=== PATIENT | male | born 1930 | race Caucasian/White ===

== ENCOUNTER 2016-10-26 17:01 | Inpatient (IN) | payer MEDICARE, BC, OTHER ==
[2016-10-26] MEDS ORDERED: traMADol 50 MG TAB PO PRN (19:50)
[2016-10-26] MEDS ORDERED: ACETAMINOPHEN TAB 325 MG TAB PO PRN (19:50)
[2016-10-26] MEDS ORDERED: NALOXONE 0.4 MG/ML 1 ML VIAL IV PRN (19:50)
[2016-10-26] MEDS ORDERED: HYDROmorphone 1 MG/ML 1 ML SYRINGE IVP PRN (19:52)
[2016-10-26] MEDS ORDERED: HYDROcodone/APAP 5-325MG 1 EACH TAB PO PRN (19:52)
--- NOTE | 2016-10-26 20:28 | XR ---
EXAMINATION TYPE: XR chest 1V portable DATE OF EXAM: 10/26/2016 8:07 PM CLINICAL HISTORY: CHF per order. TECHNIQUE: Single AP portable frontal upright view of the chest is obtained. COMPARISON: None FINDINGS: Sternal wires and mediastinal clips from CABG procedure are identified. There is chronic pa renchymal change without suspicious focal air space opacity, pleural effusion, or pneumothorax seen. The cardiac silhouette size is within normal limits with atherosclerotic thoracic aorta. The osseo us structures are somewhat demineralized IMPRESSION: Chronic changes without acute pulmonary process.
[2016-10-26 20:36] LABS: Anisocytosis Slight; Basophils % (A) 0 %; CH 29.6; Eosinophils # (A) 0.1 k/uL (0-0.7); Eosinophils % (A) 1 %; HCT 38.7 % (39.0-53.0); HDW 2.61; HGB 11.9 gm/dL (13.0-17.5); Hypochromasia Slight; Luc # (Auto) 0.15; Luc % (Auto) 2; Lymphocytes # (A) 1.2 k/uL (1.0-4.8); Lymphocytes % (A) 13 %; MCH 29.6 pg (25.0-35.0); MCHC 30.9 g/dL (31.0-37.0); MCV 95.8 fL (80.0-100.0); Mean Platelet Volume 7.9; Monocytes # (A) 0.6 k/uL (0-1.0); Monocytes % (A) 7 %; Neutrophils # (A) 6.9 k/uL (1.3-7.7); Neutrophils % (A) 77 %; RBC 4.04 m/uL (4.30-5.90); RDW 16.1 % (11.5-15.5); WBC (Perox) 9.36
[2016-10-26 20:39] LABS: Prothrombin Time 10.3 sec (9.0-12.0)
[2016-10-26 20:53] LABS: Calcium 9.1 mg/dL (8.4-10.2); Magnesium 2.6 mg/dL (1.6-2.3); Phosphorous 4.4 mg/dL (2.5-4.5); Total Bilirubin 1.1 mg/dL (0.2-1.3); Total Protein 6.7 g/dL (6.3-8.2)
[2016-10-26 21:05] VITALS: BMI 24.0
[2016-10-26] MEDS ORDERED: NITROGLYCERIN SL TABS 0.4 MG TAB SUBLINGUAL PRN (21:13)
[2016-10-26] MEDS ORDERED: MAGNESIUM HYDROXIDE 2,400 MG/10 ML CUP PO PRN (21:30)
[2016-10-26] MEDS: SODIUM CHLORIDE 0.9% 1,000 ML IV SCH (22:51)
[2016-10-26] MEDS: AZTREONAM 1 GM in SODIUM CHLORIDE 0.9% 50 ML IVPB SCH (23:09)
[2016-10-27 02:27] LABS: Appearance,Urine Clear (Clear); Bacteria,Urine Moderate /hpf; Bilirubin,Urine Negative (Negative); Glucose,Urine (UA) Negative (Negative); Ketones,Urine Negative (Negative); Leukocyte Esterase,Urine Large (Negative); Mucus,Urine Rare /hpf; Nitrite,Urine Positive (Negative); Particle Count 6607; Protein,Urine Negative (Negative); RBC,Urine 3 /hpf (0-5); Specific Gravity,Urine 1.009 (1.001-1.035); Squamous Epithelial Cell,Urine <1 /hpf (0-4); UA Billing (MACRO vs. MICRO) MICRO; Urobilinogen,Urine <2.0 mg/dL (<2.0); WBC,Urine 37 /hpf (0-5)
[2016-10-27 02:47] LABS: Anisocytosis Slight; Basophils % (A) 0 %; CH 29.8; CHCM 31.3; Eosinophils # (A) 0.2 k/uL (0-0.7); Eosinophils % (A) 3 %; HCT 35.8 % (39.0-53.0); HDW 2.65; HGB 11.3 gm/dL (13.0-17.5); Hypochromasia Slight; Luc # (Auto) 0.14; Luc % (Auto) 2; Lymphocytes # (A) 1.3 k/uL (1.0-4.8); Lymphocytes % (A) 18 %; MCH 30.3 pg (25.0-35.0); MCHC 31.7 g/dL (31.0-37.0); MCV 95.5 fL (80.0-100.0); Mean Platelet Volume 8.2; Monocytes # (A) 0.5 k/uL (0-1.0); Monocytes % (A) 7 %; Neutrophils # (A) 4.9 k/uL (1.3-7.7); Neutrophils % (A) 70 %; RBC 3.74 m/uL (4.30-5.90); RDW 16.4 % (11.5-15.5); WBC 6.9 k/uL (3.8-10.6); WBC (Perox) 7.42
[2016-10-27 03:01] LABS: Potassium 4.7 mmol/L (3.5-5.1)
[2016-10-27] MEDS: PANTOPRAZOLE 40 MG TABLET PO SCH (06:02)
[2016-10-27] MEDS ORDERED: NON-FORMULARY DRUG (Ticagrelor [Brilinta] 60 MG) PO SCH (09:00)
--- NOTE | 2016-10-27 09:05 | HP ---
DATE OF ADMISSION: CHIEF COMPLAINT: Tiredness and weakness and renal failure. HISTORY OF PRESENT ILLNESS: This 86-year-old gentleman with a past medical history of CAD, hypertension, hyperlipidemia, BPH, multiple myeloma, kidney stones, onychomycosis, history of measles and mumps, CAD, CABG being followed by primary physician, Dr. Owen Sandoval and is living [facility] for the last year. The patient apparently had stroke on the right side. The patient also had prostate cancer evaluated by Urology in [place] and the patient was scheduled for surgery. The patient has a suprapubic catheter with recurrent UTIs. The patient was taken to [facility]. patient was found to be dehydrated. Patient was also having renal failure and the doctor in [place] discussed the case over the phone at length with me and the patient was subsequently transferred to [facility] as direct admission at this time. The potassium was found to be 5.8. There is no history of fever, rigors. No history of headache, loss of consciousness or seizures. BNP was 13, 278. The patient also has abrasion of the left arm. Otherwise, there is no history of any fevers, rigors. No history of headache, loss of consciousness or seizures. PAST MEDICAL HISTORY: History of CAD, history of CVA, TIA, GERD, GI bleed, recurrent urinary tract infections, history of suprapubic catheter, history of prostate cancer. Medications prior to admission include home medications: 1. Metoprolol 25 mg p.o. daily. 2. Nitroglycerin 0.4 sublingual p.r.n. 3. Imdur 30 mg p.o. q.a.m. 4. Neurontin 400 mg p.o. t.i.d. 5. [place] 10 mg p.r.n. 6. Lexapro 20 mg p.o. daily. 7. Ambien 5 mg p.o. q.h.s. 8. Lipitor to 40 mg p.o. daily. 9. Colace 100 mg p.o. daily. 10. Brilinta 90 mg p.o. b.i.d. 11. Lisinopril 10 mg p.o. daily. 12. Aspirin 81 mg p.o. daily. 13. Cetirizine 10 mg p.o. daily. 14. Lasix 20 mg q.48 hours. 15. KCl 10 mEq daily. 16. Flonase daily. 17. Milk of magnesia. 18. [place] 5 mg b.i.d. p.r.n. 19. Lexapro mg q.h.s. 20. Celexa 10 mg p.o. daily. 21. Cymbalta 30 mg p.o. q.h.s. 22. Protonix 40 mg daily. Allergies are CEPHALEXIN, LATEX, PENICILLIN and SULFA. FAMILY HISTORY: History of myocardial infarction. No history of stroke in the family. SOCIAL HISTORY: No history of smoking. No history of alcohol intake. REVIEW OF SYSTEMS: ENT: Diminishing hearing. Diminished vision. CARDIOVASCULAR: As mentioned earlier. RESPIRATORY: As mentioned earlier. GI: As mentioned earlier. : As mentioned earlier. NERVOUS SYSTEM: As mentioned earlier. ALLERGY/IMMUNOLOGY: No asthma. MUSCULOSKELETAL: As mentioned earlier. HEMATOLOGY/ONCOLOGY: No history of anemia. ENDOCRINE: No history of diabetes or hypothyroidism. CONSTITUTIONAL: As mentioned earlier. DERMATOLOGY: Negative. RHEUMATOLOGY: Negative. PSYCHIATRY: As mentioned earlier. PHYSICAL EXAMINATION: The patient is alert and oriented x3. Pulse is 80. Blood pressure is 123/75, respirations 20, temperature 96.5, pulse ox 93% on room air. HEENT: Conjunctivae normal. Oral mucosa pale and dry. NECK: No jugular venous distention. No carotid bruit. No lymph node enlargement. CARDIOVASCULAR: S1 and S2, muffled. No S3, no S4. RESPIRATORY: Breath sounds diminished at the bases. A few scattered rhonchi and no crackles. ABDOMEN: Soft, scaphoid, nontender. No mass palpable. A suprapubic catheter present. LEGS: No edema, no swelling. NERVOUS SYSTEM: Higher function as mentioned. Moves all 4 limbs. Mild diffuse weakness, right more than the left. SKIN: No ulcers, rashes or bleeding. LYMPHATICS: No lymphadenopathy of neck, axillae or groin. Lab investigations are pending at this time. Creatinine is 2.1 from . ASSESSMENT: 1. Renal failure, possible acute on chronic with secondary dehydration and prerenal acute tubular necrosis. 2. Hyperkalemia from elsewhere. 3. History of prostate cancer. 4. Suprapubic catheter. 5. History of recurrent urinary tract infections. 6. History of coronary artery disease, coronary artery bypass graft. 7. History of cerebrovascular accident, transient ischemic attack. 8. Gait dysfunction. 9. History of gastroesophageal reflux disease. 10. History of gastrointestinal bleed. 11. Hypertension. 12. History of myocardial infarction. 13. History of appendectomy. 14. History of cholecystectomy. 15. History of coronary artery disease, stent. 16. History of monoclonal gammopathy and multiple myeloma. 17. History of nephrolithiasis. 18. History of onychomycosis. 19. History of depression, anxiety, not otherwise specified. RECOMMENDATIONS AND DISCUSSION: This 86-year-old gentleman presented with multiple complex medical issues, will monitor the patient closely. Continue the medications. Continues symptomatic treatment. Treat the patient with IV fluids cautiously. Baseline labs and repeat labs. Otherwise adjust the medications. Overall prognosis is extremely guarded because of multiple complex medical issues. Baseline labs also will be obtained and medications reconciliation will be done. I would also recommend a cardiology and nephrology evaluation also. Prognosis guarded because of multiple complex medical issues. Infectious Disease evaluation will also be done. See orders for further details. Further recommendations to follow. A copy of dictation forwarded to Dr. Owen Sandoval who is the primary physician. HER[facility] HOSPITALNathalia
[2016-10-27] MEDS: ASPIRIN 81 MG CHEW PO SCH (09:54)
[2016-10-27] MEDS: FLUTICASONE 50MCG/SPRAY NASAL 16GM EA NOSTRIL SCH ×2 (09:55→21:37)
[2016-10-27] MEDS: ATORVASTATIN 40 MG TAB PO SCH (09:55)
[2016-10-27] MEDS: DOCUSATE 100 MG CAP PO SCH (09:55)
[2016-10-27] MEDS: GABAPENTIN 100 MG CAP PO SCH ×3 (09:55→21:37)
[2016-10-27] MEDS: CITALOPRAM HYDROBROMIDE 10 MG TAB PO SCH (09:55)
[2016-10-27] MEDS: METOPROLOL TARTRATE 25 MG TAB PO SCH (09:56)
[2016-10-27] MEDS: ISOSORBIDE MONONITRATE ER 30 MG TAB.ER.24H PO SCH (09:56)
--- NOTE | 2016-10-27 10:33 | CONS ---
DATE OF CONSULTATION: 10/27/2016. HISTORY OF PRESENT ILLNESS: Patient is an 86-year-old white male who has a history of hypertension, benign prostatic hypertrophy, hyperlipidemia, currently with indwelling Reid catheter for about 11 months now being followed by urologist out of town. He was admitted to the hospital with complaints of weakness and fatigue and he felt that his head was falling down. Patient's blood pressure was low with systolic around 97 at the time of admission. He did receive IV fluids and he states he started feeling significantly better with IV hydration. Renal function has been about the same with creatinine staying at about 1.6 mg/dL. Previous labs show serum creatinine of 0.84 on 12/29/2014. There is no history of use of nonsteroidal anti-inflammatory agents prior to admission and home medications did include CLARKE inhibitors, but I do not see any NSAIDs. PAST MEDICAL HISTORY: Coronary artery disease, CVA, TIA, GERD, GI bleed, urinary tract infections, history of prostatic carcinoma, history of suprapubic catheter. MEDICATIONS PRIOR TO ADMISSION: Metoprolol, nitroglycerin, lisinopril, Imdur, Neurontin, [place], Ambien, Lipitor, Colace, cetirizine, Lasix, potassium, Flonase, [place], Celexa, Cymbalta, Protonix. ALLERGIES INCLUDE CEPHALEXIN, LATEX, PENICILLIN, SULFA. SOCIAL HISTORY: Negative for smoking, drug abuse or alcohol abuse. REVIEW OF SYSTEMS: As per HPI. Other systems negative. On examination, the patient is currently comfortable, awake, alert, oriented x3 not in any acute distress. Blood pressure 132/62, heart rate 62 per minute. He is afebrile. Examination of the heart S1 and S2. Examination of the lungs: Bilateral breath sounds are heard. Abdomen is soft, nontender. Examination of the lower extremities shows no evidence of edema. TROUBLE TRACER exam is grossly intact and patient is moving all 4 extremities. Labs show sodium 139, potassium 4.7, chloride 105, BUN 35, serum creatinine 1.6. Hemoglobin 11.3 g/dL. UA shows no evidence of protein. No blood. There is large leukocyte esterase noted. WBCs are 37 with rare clumps. ASSESSMENT: 1. Acute kidney injury, most likely associated with hypoperfusion in the setting of use of CLARKE inhibitors. Renal function is about the same; however, patient is nonoliguric. His blood pressure was low around 97 systolic at the time of admission. The CLARKE inhibitors are on hold and we will repeat labs in the a.m. 2. Dyslipidemia. 3. History of prostatic carcinoma with suprapubic catheter being followed by Urology as outpatient. 4. Rule out chronic kidney disease. Previous creatinine was 0.84 in 2015. We do not have any labs from last year. PLAN: Continue off of CLARKE inhibitors for now. Continue IV fluids. Encourage increased oral intake. Repeat labs in a.m. and avoid any other nephrotoxic agents. Thank you for this consultation. Will continue to follow the patient with you during his hospitalization.
[2016-10-27] MEDS: AZTREONAM 1 GM in SODIUM CHLORIDE 0.9% 50 ML IVPB SCH ×2 (11:44→21:37)
[2016-10-27] MEDS: SODIUM CHLORIDE 0.9% 1,000 ML IV SCH ×2 (13:49→21:42)
[2016-10-27] MEDS ORDERED: TICAGRELOR 90 MG TAB PO SCH (14:00)
--- NOTE | 2016-10-27 22:27 | PN ---
DATE OF SERVICE: 10/27/2016 This 86 -year-old gentleman who was admitted with renal failure, possibly acute on chronic secondary to dehydration and prerenal acute tubular necrosis is being closely monitored. The patient is much more alert at this time. Dr. Hernandez is following the patient. Chest x-ray showed chronic changes without acute process. The creatinine was elevated 1.6, hemoglobin 11.9. PAST MEDICAL HISTORY: Reviewed. The patient also has possible history of urinary tract infection with features of urinary tract infection also. REVIEW OF SYSTEMS: CARDIOVASCULAR: No angina. RESPIRATORY: As mentioned earlier. GASTROINTESTINAL: As mentioned earlier. : No dysuria. Current Medications are reviewed and include: 1. Tylenol 650 q.6 p.r.n. 2. [place] 5 mg. 3. Aspirin 81 mg. 4. Lipitor 40 mg. 5. Aztreonam 1 gram IV b.i.d. 6. Celexa 10 mg daily. 7. Colace 100 milligrams b.i.d. 8. Flonase one spray b.i.d. 10. Dilaudid 0.5 mg q6h p.r.n. 11. Imdur 30 mg daily. 12. Milk of Magnesia. 13. Melatonin 3 mg q.h.s. 14. Lopressor 25 mg p.o. daily. 15. Narcan 0.2 q.2 p.r.n. 17. Protonix 40 mg daily. 18. Brilinta 90 mg p.o. daily. 19. Ultram 50 mg q6h p.r.n. PHYSICAL EXAMINATION: The patient is alert and oriented times three. Pulse 60, blood pressure 120/90. Respiratory rate 16. Temperature 96.8. Pulse ox 94% on room air. HEENT: Conjunctivae normal. NECK: No jugular venous distention. CARDIOVASCULAR: S1, S2 muffled. RESPIRATORY: Breath sounds diminished at the bases. A few scattered rhonchi and crackles. ABDOMEN: Soft, nontender. Legs: No edema. No swelling. Nervous system: No focal deficits. LABS: At this time show WBC 6.9, hemoglobin 11.3, creatinine 1.3. UA noted. Cultures are pending at this time. Currently the cultures are in progress. ASSESSMENT: 1. Acute renal failure, possibly acute on chronic renal failure, secondary to dehydration with prerenal acute tubular necrosis. Rule out urinary tract infection. 2. Hyperkalemia from elsewhere. 3. History of prostate cancer. 4. Supraorbital catheter. 5. History of recurrent urinary tract infections. 6. History of coronary artery disease, coronary artery bypass grafting. 7. History of cerebrovascular accident, transient ischemic attack. 8. Gait dysfunction. 9. History of gastroesophageal reflux disease. 10. History of gastrointestinal bleed. 11. Hypertension. 12. History of myocardial infarction. 13. History of appendectomy. 14. History of cholecystectomy. 15. History of coronary artery disease, stent. 16. History of monoclonal gammopathy with multiple myeloma. 17. History of nephrolithiasis. 18. History of onychomycosis. 19. History of depression, anxiety, not otherwise specified. 20. FULL CODE. RECOMMENDATION: In this 86-year-old gentleman who presented with multiple complex medical issues, we will monitor the patient closely. Continue the current medications. Continue symptomatic treatment. Continue with IV fluids. Nephrology input appreciated. Continue the rest of the medications and infectious disease is following the patient and recommended Aztreonam. Further recommendations to follow. MTDD
[2016-10-27] MEDS: MELATONIN 3 MG TABLET PO PRN (23:05)
[2016-10-28] MEDS: ATORVASTATIN 40 MG TAB PO SCH (08:43)
[2016-10-28] MEDS: METOPROLOL TARTRATE 25 MG TAB PO SCH (08:43)
[2016-10-28] MEDS: DOCUSATE 100 MG CAP PO SCH (08:43)
[2016-10-28] MEDS: GABAPENTIN 100 MG CAP PO SCH ×3 (08:43→23:14)
[2016-10-28] MEDS: CITALOPRAM HYDROBROMIDE 10 MG TAB PO SCH (08:43)
[2016-10-28] MEDS: FLUTICASONE 50MCG/SPRAY NASAL 16GM EA NOSTRIL SCH ×2 (08:43→23:14)
[2016-10-28] MEDS: ASPIRIN 81 MG CHEW PO SCH (08:43)
[2016-10-28] MEDS: PANTOPRAZOLE 40 MG TABLET PO SCH (08:43)
[2016-10-28] MEDS: ISOSORBIDE MONONITRATE ER 30 MG TAB.ER.24H PO SCH (08:43)
[2016-10-28] MEDS: AZTREONAM 1 GM in SODIUM CHLORIDE 0.9% 50 ML IVPB SCH ×2 (09:09→23:13)
--- NOTE | 2016-10-28 09:09 | CONS ---
DATE OF CONSULTATION: This is an 86-year-old elderly gentleman who was seen by me upon request by Dr. Hodges. This is an elderly gentleman who has most of his cardiac care at [facility]. He apparently was directly admitted after discussion by the [place] emergency room doctor, and Dr. Hodges. He has a history of CAD, previous bypass surgery and PCI, hypertension, hyperlipidemia, chronic kidney disease, multiple myeloma. He has been living in [facility]. He had a stroke with right-sided weakness, but recovered very nicely from this. He came into the hospital with he had a suprapubic catheter with recurrent UTIs. He was taken in a dehydrated state to [facility] and there was a question of sepsis and he was transferred here. After arrival, his BNP was elevated and I was asked to see him for heart failure. He also has a history of hyperkalemia. He did not have any fever with chills. He is resting comfortably without symptoms at this time. Denies any chest pain. He is a reasonably active person, even though he is living at [facility]. He has no chest pain or shortness of breath at the time of my evaluation. Medications prior to admission include: 1. Metoprolol. 2. Nitroglycerin p.r.n. 3. Imdur. 4. Neurontin. 5. Lexapro. 6. Ambien. 7. Lipitor. 8. Aspirin. 9. Lisinopril. 10. Brilinta 90 mg b.i.d. which I think can be stopped. 11. [place]. 12. Cymbalta. 13. Celexa. ALLERGIES: CEPHALEXIN, PENICILLIN, LATEX AND SULFA. SOCIAL HISTORY: He does not smoke. He quit smoking several years ago does not consume alcohol. On examination, blood pressure is 138/70, pulse rate 70 per minute, regular. HEENT: Unremarkable. Fundus was not examined by me. Neck is supple. There is no JVD. I do not hear a carotid bruit. Heart exam reveals S1, S2 with a short systolic murmur at the base. No gallops. Lungs reveal diminished air entry both bases. ABDOMEN: Soft. Lower extremities reveal diminished pulses. CENTRAL NERVOUS SYSTEM: Grossly no focal deficits. I cannot elicit any weakness on the right side. EKG revealed sinus mechanism, right bundle branch block pattern, old inferior [place]. No acute changes. IMPRESSION: 1. Elevated BNP possibly may have some mild congestive heart failure, but patient clinically appears to be very well compensated. He received some diuretics already. 2. Coronary artery disease without evidence of any active angina. 3. Hyperlipidemia. 4. Chronic kidney disease. 5. History of PCI on Brilinta, but this was performed a long time, PCI was performed more than a year ago. RECOMMENDATIONS: I would recommend that we perform an echocardiogram to assess LV function. I am also recommending that we continue is all his home medications, but there is no clear-cut indication to continue Brilinta, I will therefore stop this. He is already on a beta dana. We will obtain LV function assessment by echo and then based on this, I will make further recommendations. Patient's septic work-up is also in progress. Thank you very much for the consult.
[2016-10-28 09:24] LABS: Anisocytosis Slight; Basophils % (A) 0 %; CH 29.6; CHCM 31.4; Eosinophils # (A) 0.1 k/uL (0-0.7); Eosinophils % (A) 2 %; HDW 2.67; HGB 11.1 gm/dL (13.0-17.5); Hypochromasia Slight; Luc # (Auto) 0.12; Luc % (Auto) 2; Lymphocytes # (A) 0.7 k/uL (1.0-4.8); Lymphocytes % (A) 13 %; MCHC 31.6 g/dL (31.0-37.0); MCV 94.7 fL (80.0-100.0); Mean Platelet Volume 7.7; Monocytes # (A) 0.4 k/uL (0-1.0); Monocytes % (A) 7 %; Neutrophils # (A) 4.3 k/uL (1.3-7.7); Neutrophils % (A) 76 %; RBC 3.69 m/uL (4.30-5.90); RDW 16.1 % (11.5-15.5); WBC 5.6 k/uL (3.8-10.6); WBC (Perox) 6.19
[2016-10-28 09:28] LABS: Anion Gap 9 mmol/L; Blood Urea Nitrogen 27 mg/dL (9-20); Calcium 8.9 mg/dL (8.4-10.2); Carbon Dioxide 23 mmol/L (22-30); Chloride 109 mmol/L (98-107); Glucose 102 mg/dL (74-99); Non-African American GFR(MDRD) >60 (>60 ml/min/1.73 sqM); Potassium 4.4 mmol/L (3.5-5.1); Sodium 141 mmol/L (137-145)
--- NOTE | 2016-10-28 10:27 | CONS ---
DATE OF CONSULTATION: 10/27/2016 Reason for consultation is urinary tract infection. HISTORY OF PRESENT ILLNESS: The patient is an 86 -year-old male with a past medical history of BP hypertrophy. The patient did have a chronic suprapubic catheter placed for about 11 years now. The patient apparently also has been having problems with chronic urinary tract infection and is being treated by his urologist with gentamicin with irrigation of his bladder 3 times a day for a couple of weeks now. Patient was taken to the [facility] with chief complaints of not feeling well. No energy and kind of run down. Over there, the patient was noticed to have dehydration and evidence of urinary tract infection with patient did receive a dose of ciprofloxacin there and subsequently has been transferred to the [facility] for further evaluation. His care was discussed with the R.N. last night and the patient was started on Azactam while waiting for the culture to finalize. His suprapubic catheter has been changed by the RN last night without any difficulty. At the time of evaluation the patient has been afebrile. He knows he is in the hospital. Denies having any significant chest pain or shortness of breath, cough. No abdominal pain. No diarrhea. REVIEW OF SYSTEMS: CONSTITUTIONAL: Positive for weakness. No high-grade fever. EYES: No complaint. INTEGUMENTARY: No complaint. RESPIRATORY: No complaint. CARDIOVASCULAR: No complaint. GENITOURINARY: As per HPI. GASTROINTESTINAL: No complaint. MUSCULOSKELETAL: No complaint. INTEGUMENTARY: No complaint. NEUROLOGICAL: No complaint. PAST MEDICAL HISTORY: History of coronary artery disease, history of prostate cancer and urinary retention requiring suprapubic catheter placement, history of recurrent urinary tract infections, gastroesophageal reflux disease, CVA, TIA. PAST SURGICAL HISTORY: Suprapubic catheter placement. SOCIAL HISTORY: Denies smoking, drinking or drug use. FAMILY HISTORY: No pertinent findings noticed. ALLERGIES TO MULTIPLE MEDICATIONS INCLUDE PENICILLIN AND SULFA WITH RASH, CEPHALEXIN IS UNKNOWN. Medications include the patient is on: 1. Tylenol. 2. [place]. 3. Aspirin. 4. Lipitor. 5. Azactam 1 gram q.12. 6. Celexa. 7. Colace. 8. Neurontin. 9. Dilaudid. 10. Imdur. 11. Milk of Magnesia. 12. Lopressor. 13. Narcan. 14. Nitrostat. 15. Protonix. 16. Ultram. On examination, blood pressure is 142/70 with a pulse of 77, temperature 96. He is 95% on room air. GENERAL DESCRIPTION: Elderly male lying in bed in no distress. No tachypnea or accessory muscles of respiration use. HEENT EXAMINATION: Pallor. There is no scleral icterus. Oral mucosal membranes dry. NECK: Trachea central. There is no thyromegaly. LUNGS: Unlabored breathing. Clear to auscultation anteriorly. HEART: S1, S2. Regular rate and rhythm. ABDOMEN: Soft. No tenderness. No guarding or rigidity. EXTREMITIES: No edema of feet. SKIN EXAMINATION: No rash or mass palpable. NEUROLOGICAL: The patient is awake, alert times two. Mood and affect normal. LABS: Hemoglobin 11.2, white count 6.9 with a BUN of 35. Creatinine 1.30. Electrolytes have been normal. Liver enzymes normal. Urine is positive . Cultures currently pending. DIAGNOSTIC IMPRESSION AND PLAN: Patient with catheter associated urinary tract infection. Apparently the patient does have history of recurrent urinary tract infections and is being treated with regional intermodal truck driver course of intrabladder gentamicin by his urologist more likely an resistant pathogen in a patient who does have multiple antibiotic allergies that does limit the number of antibiotics that can be safe to use though his ALLERGY TO KEFLEX is questionable. PLAN: 1. Reid catheter has already been changed. Repeat urine culture has already been obtained. We will wait for them to finalize. 2. The patient to continue Azactam 1 gram q.12 in view of his antibiotic allergy. 3. Will follow up on the clinical condition and cultures to further adjust the medication if needed. Thank you for this consultation. We will follow this patient along with you. GENARO
--- NOTE | 2016-10-28 12:11 | ECHOF ---
Referral Reason:CAD,CHF MEASUREMENTS -------- HEIGHT: 172.7 cm WEIGHT: 75.7 kg BP: 102/59 RVIDd: 3.1 cm (< 3.3) IVSd: 1.3 cm (0.6 - 1.1) LVIDd: 4.9 cm (3.9 - 5.3) LVPWd: 1.4 cm (0.6 - 1.1) IVSs: 2.1 cm LVIDs: 3.8 cm LVPWs: 1.5 cm LA Diam: 3.0 cm (2.7 - 3.8) LAESV Index (A-L): 35.18 ml/m Ao Diam: 3.7 cm (2.0 - 3.7) AV Cusp: 2.5 cm (1.5 - 2.6) LA Diam: 2.7 cm (2.7 - 3.8) MV EXCURSION: 14.382 mm (> 18.000) MV EF SLOPE: 33 mm/s (70 - 150) EPSS: 1.0 cm MV E Tariq: 0.49 m/s MV DecT: 331 ms MV A Tariq: 0.84 m/s MV E/A Ratio: 0.58 AR PHT: 607 ms FINDINGS -------- Sinus rhythm. This was a technically adequate study. There is moderate concentric left ventricular hypertrophy. Overall left ventricular systolic function is moderately impaired with, an EF between 35 - 40 %. Basal posterior LV wall motion is hypokinetic. Basal inferior LV wall motion is hypokinetic. The right ventricle is normal in size. LA is moderately dilated 34-39 ml/m2 The right atrium is normal in size. Aortic valve is trileaflet and is mildly thickened. There is mild aortic regurgitation. The mitral valve leaflets are mildly thickened. Mild mitral annular calcification present. Mild mitral regurgitation is present. Trace tricuspid regurgitation present. Trace/mild (physiologic) pulmonic regurgitation. The aortic root size is normal. IVC Not well visulized. There is no pericardial effusion. CONCLUSIONS -------- 1. Sinus rhythm. 2. Aortic valve is trileaflet and is mildly thickened. 3. There is mild aortic regurgitation. 4. The mitral valve leaflets are mildly thickened. 5. Mild mitral annular calcification present. 6. Mild mitral regurgitation is present. 7. Trace tricuspid regurgitation present. 8. Trace/mild (physiologic) pulmonic regurgitation. 9. The aortic root size is normal. 10. IVC Not well visulized. 11. There is no pericardial effusion. 12. This was a technically adequate study. 13. There is moderate concentric left ventricular hypertrophy. 14. Overall left ventricular systolic function is moderately impaired with, an EF between 35 - 40 %. 15. Basal posterior LV wall motion is hypokinetic. 16. Basal inferior LV wall motion is hypokinetic. 17. The right ventricle is normal in size. 18. LA is moderately dilated 34-39 ml/m2 19. The right atrium is normal in size. VACUUM TECHNICIAN: Davy Monique RDCS
--- NOTE | 2016-10-28 14:46 | PN ---
Patient is seen for follow-up for acute kidney injury. His renal function has improved significantly with creatinine down to 1.13 from 1.6 on initial admission. Patient's blood pressure was on the lower side. He had been on CLARKE inhibitors prior to admission. He responded very well to IV fluids and his creatinine is now down to 1.13. The CLARKE inhibitors are on board. The patient wants to go home today. On examination, blood pressure is 167/90, I am not sure if this is accurate as previously pressure was 102/69, heart rate 91 per minute. He is afebrile. Examination of the heart S1 and S2. Examination of the lungs: Bilateral breath sounds are heard. ABDOMEN: Soft, nontender. Examination of lower extremities shows no evidence of edema and FIELD SERVICES DIRECTOR exam is grossly intact. Moving all 4 extremities. Labs show sodium 141, potassium 4, chloride 109, BUN 27, serum creatinine 1.13. Hemoglobin 11.1 g/dL. ASSESSMENT: 1. Acute kidney injury associated with hypotension, hypoperfusion in the setting of use of CLARKE inhibitors, currently significantly improved. 2. History of prostatic carcinoma with suprapubic catheter and followed by urology as outpatient. 3. Hypertension. Blood pressure currently on the lower side. PLAN: The patient is stable for discharge. We need to monitor his blood pressure and if he remains elevated, he could start very low-dose CLARKE inhibitors with close monitoring of renal function and this can be done as outpatient.
--- NOTE | 2016-10-28 20:11 | PN ---
DATE OF SERVICE: 10/28/2016 REASON FOR FOLLOWUP: Catheter-associated urinary tract infection. INTERVAL HISTORY: The patient is afebrile. He has been breathing comfortably. The patient denies having any chest pain or shortness of breath or cough. No abdominal pain or any diarrhea. On examination, blood pressure is 121/70 with a pulse of 85, temperature 97. He is 92% on room air. General description is an elderly male lying in bed in no distress. RESPIRATORY SYSTEM: Unlabored breathing. Clear to auscultation anteriorly. HEART: S1, S2. Regular rate and rhythm. ABDOMEN: Soft. No tenderness. LABS: Hemoglobin is 11.1, white count 5.6 with a BUN of 27, creatinine 1.13. Urine showing Gram-negative. DIAGNOSTIC IMPRESSION AND PLAN: Patient with Gram-negative catheter-associated urinary tract infection. Patient at this time will continue on azactam because of his multiple antibiotic allergies. We are waiting for the urine culture to finalize to determine his discharge antibiotics, as the patient has been treated with multiple antibiotics in the outpatient setting. Continue supportive care.
[2016-10-28] MEDS: SODIUM CHLORIDE 0.9% 1,000 ML IV SCH (23:14)
[2016-10-28] MEDS: MELATONIN 3 MG TABLET PO PRN (23:25)
[2016-10-29 00:49] VITALS: RESP 20
[2016-10-29] MEDS: AZTREONAM 1 GM in SODIUM CHLORIDE 0.9% 50 ML IVPB SCH (08:25)
[2016-10-29] MEDS: CITALOPRAM HYDROBROMIDE 10 MG TAB PO SCH (08:26)
[2016-10-29] MEDS: GABAPENTIN 100 MG CAP PO SCH (08:26)
[2016-10-29] MEDS: ASPIRIN 81 MG CHEW PO SCH (08:26)
[2016-10-29] MEDS: PANTOPRAZOLE 40 MG TABLET PO SCH (08:26)
[2016-10-29] MEDS: DOCUSATE 100 MG CAP PO SCH ×2 (08:26→08:27)
[2016-10-29] MEDS: ATORVASTATIN 40 MG TAB PO SCH (08:26)
[2016-10-29] MEDS: FLUTICASONE 50MCG/SPRAY NASAL 16GM EA NOSTRIL SCH ×2 (08:26→08:27)
[2016-10-29] MEDS: METOPROLOL TARTRATE 25 MG TAB PO SCH (08:26)
[2016-10-29] MEDS: ISOSORBIDE MONONITRATE ER 30 MG TAB.ER.24H PO SCH (08:26)
[2016-10-29 08:47] LABS: Basophils % (A) 0 %; CH 29.5; CHCM 30.4; Eosinophils # (A) 0.1 k/uL (0-0.7); Eosinophils % (A) 2 %; HCT 40.7 % (39.0-53.0); HGB 12.4 gm/dL (13.0-17.5); Hypochromasia Moderate; Luc # (Auto) 0.14; Luc % (Auto) 3; Lymphocytes # (A) 1.2 k/uL (1.0-4.8); Lymphocytes % (A) 21 %; MCH 29.6 pg (25.0-35.0); MCHC 30.4 g/dL (31.0-37.0); MCV 97.6 fL (80.0-100.0); Macrocytosis Slight; Mean Platelet Volume 7.6; Monocytes # (A) 0.5 k/uL (0-1.0); Monocytes % (A) 8 %; Neutrophils # (A) 3.7 k/uL (1.3-7.7); Neutrophils % (A) 66 %; RBC 4.17 m/uL (4.30-5.90); RDW 15.9 % (11.5-15.5); WBC 5.6 k/uL (3.8-10.6); WBC (Perox) 5.82
[2016-10-29 09:07] LABS: Anion Gap 14 mmol/L; Blood Urea Nitrogen 24 mg/dL (9-20); Calcium 9.1 mg/dL (8.4-10.2); Carbon Dioxide 18 mmol/L (22-30); Chloride 109 mmol/L (98-107); Glucose 85 mg/dL (74-99); Non-African American GFR(MDRD) >60 (>60 ml/min/1.73 sqM); Potassium 4.4 mmol/L (3.5-5.1); Sodium 141 mmol/L (137-145)
--- NOTE | 2016-10-29 14:15 | P.DS ---
Providers Date of admission: 10/26/16 19:17 Expected date of discharge: 10/29/16 Attending physician: Maritza Bravo. Consults: 10/26/16 19:51 Consult Physician Routine Consulting Provider: Oni Goodman Consult Reason/Comments: cad Do you want consulting provider notified?: Yes Consult Physician Routine Consulting Provider: Fany Rhoades Consult Reason/Comments: uti Do you want consulting provider notified?: Yes Consult Physician Routine Consulting Provider: Deisi Hernandez Consult Reason/Comments: arf Do you want consulting provider notified?: Yes Primary care physician: Maritza Sandoval Hospital Course: Final diagnoses: 1 acute renal failure, possibly acute on chronic renal failure secondary to dehydration with prerenal acute tubular necrosis 2. Acute UTI, E. coli, catheter associated-suprapubic catheter, in a patient with history of prostate carcinoma with recurrent UTIs. 3. CAD, history of IA, CABG,stent 4. Gait dysfunction 5. Gastroesophageal reflux disease 6. Essential hypertension, 7. Monoclonal gammopathy with multiple myeloma 8. History of nephrolithiasis 9. Moderate concentric left ventricular hypertrophy, EF 35-40%. Plan: This is an 86-year-old male resident of [facility] with a suprapubic catheter admitted with acute UTI with E. coli, acute renal failure, dehydration and multiple other medical issues. Evaluated by both nephrology and infectious disease. Creatinine on admission 1.6 in a patient who had been on Chuy inhibitors prior to admission .Maintained on IV fluids and IV antibiotics. CHUY inhibitor is currently remain on hold, may be reintroduced outpatient at a lower dose, if patient becomes hypertensive as per nephrology. Significant clinical improvement. Cleared for discharge by both nephrology and infectious disease.Patient is being discharged to [facility] in a stable condition with guarded prognosis. Microbiology 10/27/16 02:02 Urine,Suprapubic Urine Culture - Final Escherichia coli 10/26/16 20:12 Blood Blood Culture - Preliminary No Growth after 48 hours Plan - Discharge Summary New Discharge Prescriptions: Cefuroxime Axetil [Ceftin] 500 mg PO BID #10 tab Discharge Medication List Metoprolol Tartrate [Lopressor] 25 mg PO DAILY 12/01/13 [History] Nitroglycerin Sl Tabs [Nitrostat] 0.4 mg SUBLINGUAL Q5M PRN 07/13/14 [History] Furosemide [Lasix] 20 mg PO Q48H 08/03/14 [History] Potassium Chloride [Klor-Con 10] 10 meq PO DAILY 08/03/14 [History] Aspirin [Adult Low Dose Aspirin EC] 81 mg PO DAILY 10/26/16 [History] Atorvastatin [Lipitor] 40 mg PO DAILY 10/26/16 [History] Cetirizine HCl 10 mg PO DAILY 10/26/16 [History] Citalopram Hydrobromide [CeleXA] 10 mg PO DAILY 10/26/16 [History] DULoxetine HCL [Cymbalta] 30 mg PO HS 10/26/16 [History] Docusate [Colace] 100 mg PO DAILY 10/26/16 [History] Escitalopram [Lexapro] 20 mg PO DAILY 10/26/16 [History] Fluticasone Nasal Marion [Flonase Nasal Marion] 1 spray EA NOSTRIL BID 10/26/16 [ History] Gabapentin [Neurontin] 400 mg PO TID 10/26/16 [History] Isosorbide Mononitrate ER [Imdur] 30 mg PO DAILY 10/26/16 [History] Magnesium Hydroxide [Milk of Magnesia] 30 ml PO HS PRN 10/26/16 [History] Melatonin 2 mg PO HS 10/26/16 [History] Pantoprazole Sodium [Protonix] 40 mg PO DAILY 10/26/16 [History] Pantoprazole [Protonix] 40 mg PO DAILY 10/26/16 [History] Ticagrelor [Brilinta] 60 mg PO BID 10/26/16 [History] Cefuroxime Axetil [Ceftin] 500 mg PO BID #10 tab 10/29/16 [Rx] Patient Instructions/Handouts: Acute Kidney Injury (DC), Urinary Tract Infection in Men (DC) Activity/Diet/Wound Care/Special Instructions: Shirley on discharge. Cardiac diet. Fall precautions. CBC, BMP in 3 days
[2016-10-29] MEDS ORDERED: SODIUM BICARBONATE TAB 650 MG TAB PO SCH (14:30)
[2016-10-29 14:49] VITALS: BP 121/63; PULSE 64; TEMP 98.4
[2016-10-29] MEDS: SODIUM CHLORIDE 0.9% 1,000 ML IV SCH (15:24)
--- NOTE | 2016-10-29 15:39 | P.PN ---
Subjective Patient is seen in follow-up for acute kidney injury. Renal function continues to improve with creatinine down to 1.03. Currently resting in bed. He is nonoliguric. He is eager to go home. Appetite is good. No vomiting or diarrhea. No active complaints at this time. Vital signs are stable. General: The patient appeared well nourished and normally developed. HEENT: Head exam is unremarkable. Neck is without jugular venous distension. LUNGS: Lungs are clear to auscultation and percussion. Breath sounds decreased. HEART: Rate and Rhythm are regular. First and second heart sounds normal. No murmurs, rubs or gallops. ABDOMEN: Abdominal exam reveals normal bowel sounds. Non-tender and non- distended. No evidence of peritonitis. EXTREMITITES: No clubbing, cyanosis, or edema. Objective - Vital Signs Vital signs: Vital Signs Temp 98.4 F 10/29/16 14:49 Pulse 64 10/29/16 14:49 Resp 20 10/29/16 14:49 BP 121/63 10/29/16 14:49 Pulse Ox 96 10/29/16 14:49 Intake & Output 10/28/16 10/29/16 10/29/16 18:59 06:59 18:59 Intake Total 480 400 Output Total 1500 2700 700 Balance -1020 -2300 -700 Intake: Oral 480 400 Output: Urine 1500 2700 700 Uretheral (Reid) 900 900 Other: Voiding Method Indwelling Catheter Indwelling Catheter # Bowel Movements 1 2 - Labs CBC & Chem 7: 10/29/16 08:18 10/29/16 08:18 Labs: Abnormal Lab Results - Last 24 Hours (Table) 10/29/16 10/29/16 Range/Units 08:18 08:18 RBC 4.17 L (4.30-5.90) m/uL Hgb 12.4 L (13.0-17.5) gm/dL MCHC 30.4 L (31.0-37.0) g/dL RDW 15.9 H (11.5-15.5) % Plt Count 136 L (150-450) k/uL Chloride 109 H (98-107) mmol/L Carbon Dioxide 18 L (22-30) mmol/L BUN 24 H (9-20) mg/dL Microbiology - Last 24 Hours (Table) 10/27/16 02:02 Urine Culture - Final Urine,Suprapubic Escherichia coli 10/26/16 20:12 Blood Culture - Preliminary Blood No Growth after 48 hours Assessment and Plan Plan: Assessment: #1. Nonoliguric acute kidney injury mostly prerenal in nature secondary to hypotension and CLARKE inhibitor use. Resolved. Creatinine now to 1.03 today. #2. History of hypertension. Controlled. Off CLARKE inhibitor at this time. #3. History of prostate carcinoma with suprapubic catheter in place. #4. Metabolic acidosis secondary to IV fluids and acute kidney injury. #5. Urinary tract infection with urine culture positive for E. coli. Plan: Hep-Lock IV fluids. Start oral sodium bicarbonate 650 mg once daily. Stable to be discharged home from nephrology standpoint and to follow-up as an outpatient in the next 2 weeks.
--- NOTE | 2016-10-29 16:39 | PN ---
DATE OF SERVICE: 10/29/2016 REASON FOR FOLLOWUP: Catheter-associated urinary tract infection. INTERVAL HISTORY: The patient is afebrile, has been breathing comfortably. Denies significant chest pain or shortness of breath or cough. No abdominal pain. No nausea, vomiting or any diarrhea. On examination, blood pressure is 124/69 with a pulse of 65, temperature 97. He is 93% on room air. General description is an elderly male lying in bed in no distress. RESPIRATORY SYSTEM: Unlabored breathing. Clear to auscultation anteriorly. HEART: S1, S2. Regular rate and rhythm. ABDOMEN: Soft. No tenderness. LABS: Hemoglobin is 12.4, white count 5.6 with a BUN of 24, creatinine 1.03. Urine culture finalized with an E. coli that is sensitive to Rocephin, Azactam. DIAGNOSTIC IMPRESSION AND PLAN: Patient with an Escherichia coli catheter-associate urinary tract infection. Patient's Reid catheter has been changed. There is a question of Keflex allergy; however, on discussion with [facility], where he has most of his treatment, he has received multiple doses of Rocephin and even one before being transferred here. Patient was given a dose of Rocephin, which he tolerated without any problem. Patient will be given Ceftin 500 mg twice a day for another 5 days to finish a course of therapy. Continue supportive care.
--- NOTE | 2016-10-29 19:28 | P.PN ---
Subjective Date of service 10/28/2016 Progress note being dictated for Dr. Bravo. Interval history: This is an 86-year-old male resident of [facility] with a suprapubic catheter admitted with acute UTI with gram-negative, acute renal failure, dehydration and multiple other medical issues. Maintained on IV fluids and IV antibiotics. CLARKE inhibitor currently remains on hold, renal function improving. Afebrile. No abdominal pain. HGB 11.1. Denies nausea vomiting. Denies chest pain, palpitations or increasing shortness of breath. Objective - Vital Signs Vital signs: Vital Signs Temp 97.0 F L 10/28/16 15:00 Pulse 65 10/28/16 15:00 Resp 18 10/28/16 15:44 BP 121/70 10/28/16 15:00 Pulse Ox 92 L 10/28/16 15:00 Intake & Output 10/28/16 10/28/16 10/29/16 06:59 18:59 06:59 Intake Total 400 480 Output Total 900 1500 Balance -500 -1020 Intake: Oral 400 480 Output: Urine 900 1500 Uretheral (Reid) 900 Other: Voiding Method Indwelling Catheter Indwelling Catheter # Voids 1 # Bowel Movements 1 - Exam PHYSICAL EXAM: VITAL SIGNS: As above GENERAL: [Sitting up in bed, no acute distress] HEENT: [Pupils equal conjunctiva normal.] NECK: [Supple, no JVD] RESPIRATORY EFFORT:[Normal] LUNGS: [Lungs diminished, no wheezes crackles or rhonchi] CARDIOVASCULAR[regular S1 and S2, no edema ] GI: [Abdomen soft, nontender, positive bowel sounds.] PSYCH: [Alert and oriented -2, mood and affect normal.] SKIN: NEURO: No focal deficits, moves all 4 extremities, strength and sensation grossly intact - Labs CBC & Chem 7: 10/29/16 08:18 10/29/16 08:18 Labs: Abnormal Lab Results - Last 24 Hours (Table) 10/28/16 10/28/16 Range/Units 08:59 08:59 RBC 3.69 L (4.30-5.90) m/uL Hgb 11.1 L (13.0-17.5) gm/dL Hct 35.0 L (39.0-53.0) % RDW 16.1 H (11.5-15.5) % Plt Count 131 L (150-450) k/uL Lymphocytes # 0.7 L (1.0-4.8) k/uL Chloride 109 H (98-107) mmol/L BUN 27 H (9-20) mg/dL Glucose 102 H (74-99) mg/dL Microbiology - Last 24 Hours (Table) 10/26/16 20:12 Blood Culture - Preliminary Blood No Growth after 48 hours 10/27/16 02:02 Urine Culture - Preliminary Urine,Suprapubic Gram Neg Bacilli Assessment and Plan Plan: 1 acute renal failure, possibly acute on chronic renal failure secondary to dehydration with prerenal acute tubular necrosis 2. Acute UTI, gm. negative , catheter associated-suprapubic catheter, in a patient with history of prostate carcinoma with recurrent UTIs. 3. CAD, history of GA, CABG,stent 4. Gait dysfunction 5. Gastroesophageal reflux disease 6. Essential hypertension, 7. Monoclonal gammopathy with multiple myeloma 8. History of nephrolithiasis 9. Moderate concentric left ventricular hypertrophy, EF 35-40%. Plan: Continue on current medication regime ,monitoring and symptomatic treatment. Awaiting final culture results with antibiotics as per ID. Discharge planning in progress for ECF rehab tomorrow. Further recommendations to follow. The impression and plan of care has been dictated as directed. : I performed a H&P examination of this patient and discussed the same with the dictator. I agree with the dictator's note. Any additional findings/opinions/ etc. will be noted.
== END 2016-10-29 16:21 | DRG 698 ==
LOC: 6SEL 19:17 → 4MS4W 10-27 18:22
PROVIDERS: ADMIT Hospitalist; ATTEND Hospitalist
DX: T83.518A Infection and inflammatory reaction due to other urinary catheter, initial encounter (principal); N17.0 Acute kidney failure with tubular necrosis; E87.2 Acidosis; I13.0 Hypertensive heart and chronic kidney disease with heart failure and stage 1 through stage 4 chronic kidney disease, or unspecified chronic kidney disease; C90.00 Multiple myeloma not having achieved remission; I95.9 Hypotension, unspecified; N39.0 Urinary tract infection, site not specified; I50.9 Heart failure, unspecified; B96.20 Unspecified Escherichia coli [E. coli] as the cause of diseases classified elsewhere; E87.5 Hyperkalemia; E86.0 Dehydration; C61 Malignant neoplasm of prostate; E78.5 Hyperlipidemia, unspecified; D47.2 Monoclonal gammopathy; I25.10 Atherosclerotic heart disease of native coronary artery without angina pectoris; I25.2 Old myocardial infarction; K21.9 Gastro-esophageal reflux disease without esophagitis; N40.0 Benign prostatic hyperplasia without lower urinary tract symptoms; S40.812A Abrasion of left upper arm, initial encounter; N18.9 Chronic kidney disease, unspecified; F32.9 Major depressive disorder, single episode, unspecified; F41.9 Anxiety disorder, unspecified; I45.10 Unspecified right bundle-branch block; R01.1 Cardiac murmur, unspecified; R26.9 Unspecified abnormalities of gait and mobility; Z79.82 Long term (current) use of aspirin; Z79.899 Other long term (current) drug therapy; Z87.440 Personal history of urinary (tract) infections; Z87.891 Personal history of nicotine dependence; Z95.5 Presence of coronary angioplasty implant and graft; Z95.1 Presence of aortocoronary bypass graft; Z88.0 Allergy status to penicillin; Z88.1 Allergy status to other antibiotic agents; Z91.040 Latex allergy status; Z88.2 Allergy status to sulfonamides; Z82.49 Family history of ischemic heart disease and other diseases of the circulatory system; Y84.6 Urinary catheterization as the cause of abnormal reaction of the patient, or of later complication, without mention of misadventure at the time of the procedure
CPT/HCPCS: 71010; 80048; 80053; 81001; 82150; 83605; 83690; 83735; 84100; 84484; 85025; 85610; 87040; 87077; 87086; 87186; 93306

== ENCOUNTER 2017-11-08 14:28 | Inpatient (IN) | payer MEDICARE, BC, OTHER ==
[2017-11-08 21:34] VITALS: BMI 34.7
[2017-11-08] MEDS ORDERED: FUROSEMIDE 10 MG/ML 4 ML VIAL IV STA (22:45)
[2017-11-08] MEDS ORDERED: ACETAMINOPHEN TAB 325 MG TAB PO PRN (22:48)
[2017-11-08] MEDS ORDERED: ONDANSETRON 4 MG/2 ML VIAL IVP PRN (22:49)
[2017-11-09] MEDS ORDERED: HYDROcodone/APAP 5-325MG 1 EACH TAB PO PRN (01:26)
[2017-11-09] MEDS ORDERED: NITROGLYCERIN SL TABS 0.4 MG TAB SUBLINGUAL PRN (01:26)
[2017-11-09] MEDS ORDERED: MAGNESIUM HYDROXIDE 2,400 MG/10 ML CUP PO PRN (01:26)
[2017-11-09 02:15] LABS: Appearance,Urine Clear (Clear); Bacteria,Urine Rare /hpf; Bilirubin,Urine Negative (Negative); Blood,Urine Trace (Negative); Color,Urine Light Yellow; Glucose,Urine (UA) Negative (Negative); Hyaline Casts,Urine 9 /lpf (0-2); Ketones,Urine Negative (Negative); Leukocyte Esterase,Urine Small (Negative); Mucus,Urine Rare /hpf; Nitrite,Urine Positive (Negative); Protein,Urine Negative (Negative); RBC,Urine 5 /hpf (0-5); Specific Gravity,Urine 1.007 (1.001-1.035); Squamous Epithelial Cell,Urine <1 /hpf (0-4); Urobilinogen,Urine <2.0 mg/dL (<2.0); WBC,Urine 7 /hpf (0-5)
[2017-11-09 05:54] LABS: Albumin 3.4 g/dL (3.5-5.0); Calcium 10.2 mg/dL (8.4-10.2); Potassium 4.5 mmol/L (3.5-5.1); Total Bilirubin 0.7 mg/dL (0.2-1.3)
--- NOTE | 2017-11-09 06:01 | HP ---
HISTORY AND PHYSICAL DATE OF SERVICE: 11/08/2017 CHIEF COMPLAINT: Weakness. HISTORY OF PRESENT ILLNESS: This 87-year-old gentleman with a past medical history of multiple medical problems including atrial fibrillation, history of CHF, COPD, CVA, GERD, GI bleed, myocardial infarction was recently admitted with acute renal failure with secondary dehydration. Patient also had E. coli UTI. The patient improved significantly with treatment and subsequently patient was transferred to [facility] in [place] under the care of Dr. Owen Sandoval. Currently the patient was confused and was taken to the [facility] for further evaluation and treatment. Patient had multiple medical issues including UTI and also had drop in hemoglobin from 11 to 8.2, and the troponin was also found to be elevated and the patient was transferred to [facility]. Just before transfer, the patient was complaining of a brief anterior chest pain and the EKG showed right bundle branch block and the patient was transferred to telemetry as direct admission at this time. Currently patient is confused, to give history. Otherwise, there is no history of any fever, rigors or chills. No history of headache, loss of consciousness, seizures or shortness of breath at this time. PAST MEDICAL HISTORY: History of atrial fibrillation, history of chest pain, CHF, COPD, CVA, TIA, GI bleed, myocardial infarction, prostate disorder. MEDICATIONS: Home medications are: 1. Brilinta 60 mg p.o. b.i.d. 2. Sodium bicarb 650 mg p.o. daily. 3. Senokot-S 1 tab p.o. daily. 4. Klor-Con 10 mEq p.o. daily. 5. Protonix 40 mg p.o. daily. 6. Nitrostat 0.4 sublingual p.r.n. 7. Lopressor 50 mg p.o. b.i.d. 8. Melatonin 2 mg p.o. q.h.s. 9. Milk of magnesia 2.4 grams p.o. daily p.r.n. 10.Imdur ER 60 mg p.o. daily. 11.Tony 5 mg q.6 p.r.n. 12.Gentamicin 1 application daily. 13.Neurontin 600 mg p.o. b.i.d. 14.Lasix 20 mg q.48 hours. 15.Cymbalta 60 mg p.o. daily. 16.Cetirizine 10 mg p.o. daily. 17.Bisacodyl 10 mg daily p.r.n. 18.Lipitor 40 mg p.o. daily. 19.Aspirin 81 mg p.o. daily. ALLERGIES: CEPHALEXIN, LATEX, PENICILLIN, SULFA. FAMILY HISTORY: History of myocardial infarction, heavy smoker. SOCIAL HISTORY: No history of smoking. No history of alcohol intake. REVIEW OF SYSTEMS: ENT: No diminished hearing or diminished vision. CARDIOVASCULAR SYSTEM: As mentioned earlier. RESPIRATORY SYSTEM: As mentioned earlier. GI: No nausea or vomiting. : As mentioned earlier. NERVOUS SYSTEM: No numbness. Generalized weakness. ALLERGY/IMMUNOLOGY: No history of asthma. MUSCULOSKELETAL: As mentioned earlier. HEMATOLOGY/ONCOLOGY: No history of anemia. ENDOCRINE: No history of diabetes or hypothyroidism. CONSTITUTIONAL: As mentioned earlier. DERMATOLOGY: Negative. RHEUMATOLOGY: Negative. PSYCHIATRY: As mentioned earlier. PHYSICAL EXAMINATION: The patient is alert and oriented x3. Pulse is 70, blood pressure 121/58, respirations 17, temperature 97.5, pulse ox 97% on 2 L. HEENT: Conjunctivae normal. Oral mucosa moist. Neck is no jugular venous distention. No carotid bruit. No lymph node enlargement. CARDIOVASCULAR: S1, S2 muffled. No S3 or S4. RESPIRATORY: Breath sounds diminished at the bases. Scattered rhonchi and basal crackles. ABDOMEN: Soft, nontender. No mass palpable. LEGS: No edema, no swelling. NERVOUS SYSTEM: Higher functions as mentioned earlier. Moves all 4 limbs. No focal motor deficits. Diffusely weak. LYMPHATICS: No lymphadenopathy of the neck, axillae or groin. SKIN: No ulcer, rash or bleeding. LABS: Troponin 0.403. Other labs are noted. BUN is ntd, the creatinine is 2. Initial troponin 0.09. EKG noted. The 2D echo with Doppler done recently showed ejection fraction 35% to 40%. ASSESSMENT: 1. Change in mental status possibly urinary tract infection with sepsis indwelling Reid catheter. 2. Chest pain with acute non ST-segment elevation myocardial infarction with troponin 0.403. 3. Acute on chronic kidney disease. 4. History of congestive heart failure with chronic systolic dysfunction ejection fraction 35% to 40%. 5. History atrial fibrillation. 6. History of chronic obstructive pulmonary disease. 7. Cerebrovascular accident, transient ischemic attack. 8. Gastroesophageal reflux disease. 9. History of gastrointestinal bleed. 10.Hypertension. 11.History of myocardial infarction. 12.History of prostate disorder. 13.History of indwelling Reid catheter. 14.History of multiple myeloma. 15.History of appendectomy. 16.Coronary artery disease, coronary artery bypass grafting, stent. 17.History of prostate cancer. 18.NO CODE, NO CPR, NO VENT. RECOMMENDATION AND DISCUSSION: In this 87-year-old gentleman who presented with multiple complex medical issues , will monitor the patient closely. Continue the current medication, continue symptomatic treatment. Will initiate broad-spectrum IV antibiotics and Lasix also will be given cautiously: Recommend Cardiology and Nephrology evaluations. The prognosis is guarded because of multiple complex medical issues. Further recommendations to follow. Repeat labs also will be ordered. Dr. Mendez also will be consulted for multiple myeloma. A copy of dictation forwarded to Dr. Owen Sandoval who is the primary physician. MMZELDA / KARYN: [id number] / MTDNathalia
[2017-11-09 07:06] LABS: Total Protein 11.7 g/dL (6.3-8.2)
[2017-11-09] MEDS ORDERED: BISACODYL 5 MG TABLET.DR PO PRN (09:00)
[2017-11-09] MEDS ORDERED: NON-FORMULARY DRUG (Ticagrelor [Brilinta] 60 MG) PO SCH (09:00)
[2017-11-09] MEDS ORDERED: GENTAMICIN 0.1% CREAM 15 GM TUBE TOPICAL SCH (09:00)
[2017-11-09] MEDS ORDERED: LEVOFLOXACIN 750MG-D5W PMX 750 MG in DEXTROSE/WATER 1 150ML.BAG IVPB SCH (09:00)
[2017-11-09] MEDS ORDERED: FUROSEMIDE 10 MG/ML 4 ML VIAL IV SCH (09:00)
[2017-11-09] MEDS ORDERED: TICAGRELOR 90 MG TAB PO SCH ×2 (09:00)
[2017-11-09] MEDS: GABAPENTIN 300 MG CAP PO SCH ×2 (09:09→21:19)
[2017-11-09] MEDS: ATORVASTATIN 40 MG TAB PO SCH (09:09)
[2017-11-09] MEDS: DULoxetine HCL 60 MG CAPSULE.DR PO SCH (09:09)
[2017-11-09] MEDS: ISOSORBIDE MONONITRATE ER 60 MG TAB.ER.24H PO SCH ×2 (09:09→21:19)
[2017-11-09] MEDS: LORATADINE 10 MG TAB PO SCH (09:09)
[2017-11-09] MEDS: POTASSIUM CHLORIDE ER 10 MEQ TAB.ER.PRT PO SCH (09:10)
[2017-11-09] MEDS: ASPIRIN 81 MG PO SCH (09:10)
[2017-11-09] MEDS: SODIUM BICARBONATE TAB 650 MG TAB PO SCH (09:10)
[2017-11-09] MEDS: SENNOSIDES-DOCUSATE SODIUM 1 EACH TAB PO SCH (09:11)
[2017-11-09] MEDS: METOPROLOL TARTRATE 50 MG TAB PO SCH ×2 (09:11→21:19)
[2017-11-09] MEDS: PANTOPRAZOLE 40 MG TABLET PO SCH (09:15)
--- NOTE | 2017-11-09 11:08 | ECHOF ---
Referral Reason:chest pain; cardiac hx MEASUREMENTS -------- HEIGHT: 172.7 cm WEIGHT: 103.4 kg BP: 123/68 RVIDd: 2.6 cm (< 3.3) IVSd: 1.3 cm (0.6 - 1.1) LVIDd: 6.1 cm (3.9 - 5.3) LVPWd: 1.1 cm (0.6 - 1.1) IVSs: 2.0 cm LVIDs: 4.7 cm LVPWs: 1.2 cm LA Diam: 2.9 cm (2.7 - 3.8) LAESV Index (A-L): 20.71 ml/m Ao Diam: 3.9 cm (2.0 - 3.7) AV Cusp: 2.4 cm (1.5 - 2.6) MV EXCURSION: 27.766 mm (> 18.000) MV EF SLOPE: 112 mm/s (70 - 150) EPSS: 0.8 cm MV E Tariq: 0.57 m/s MV DecT: 128 ms MV A Tariq: 0.92 m/s MV E/A Ratio: 0.62 AR PHT: 483 ms RAP: 5.00 mmHg RVSP: 22.84 mmHg FINDINGS -------- Sinus rhythm. This was a technically good study. The left ventricle is mildly dilated. There is mild concentric left ventricular hypertrophy. Over all left ventricular systolic function is mild-moderately impaired with, an EF between 40 - 45 %. 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 The right ventricle is normal in size. Normal LA size by volume 22+/-6 ml/m2. The right atrium is normal in size. There is mild aortic valve sclerosis. There is [id number] aortic regurgitation. The mitral valve leaflets are mildly thickened. The tricuspid valve appears structurally normal. There is no pulmonic regurgitation present. The aortic root is dilated measuring 3.9cm. IVC Not well visulized. There is no pericardial effusion. CONCLUSIONS -------- 1. Sinus rhythm. 2. This was a technically good study. 3. The left ventricle is mildly dilated. 4. There is mild concentric left ventricular hypertrophy. 5. Overall left ventricular systolic function is mild-moderately impaired with, an EF between 40 - 45 %. 6. 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 Basal inferior LV wall motion is hypokinetic. 8. The right ventricle is normal in size. 9. Normal LA size by volume 22+/-6 ml/m2. 10. The right atrium is normal in size. 11. There is mild aortic valve sclerosis. 12. There is [id number] aortic regurgitation. 13. The mitral valve leaflets are mildly thickened. 14. The tricuspid valve appears structurally normal. 15. There is no pulmonic regurgitation present. 16. The aortic root is dilated measuring 3.9cm. 17. IVC Not well visulized. 18. There is no pericardial effusion. [employer] CHIEF CLERK: Jaclyn Rainey RDCS
--- NOTE | 2017-11-09 11:12 | P.NPCON ---
History of Present Illness - Reason for Consult acute renal failure - History of Present Illness Reason for consultation: Acute kidney injury History of present illness: Patient is a 87-year-old male seen in renal consultation for acute kidney injury. His baseline creatinine is near 1 and elevated at 2.0 today. Patient presented to [facility] with altered mental status. He was noted to have elevated troponin levels as well as anemia and was subsequently transferred to [facility] for further care. He does have a suprapubic catheter which she states is changed every 3 weeks. He denies any melena or hematochezia. No proteinuria noted on urinalysis. His sodium level is elevated at 147. He's currently receiving Lasix 40 mg IV twice daily. He does a history of systolic CHF with ejection fraction of 35-40%. Oral intake is fair. No vomiting or diarrhea. Denies chest pain or shortness of breath. No edema. I don't see NSAIDs and his home medications. No history of diabetes. He is nonoliguric. He has a suprapubic catheter in place. He does have history of UTIs in the past. Cultures are currently pending. He is maintained on antibiotics per infectious disease recommendations. Vital signs are stable. General: The patient appeared well nourished and normally developed. HEENT: Head exam is unremarkable. Neck is without jugular venous distension. LUNGS: Lungs are clear to auscultation and percussion. Breath sounds decreased. HEART: Rate and Rhythm are regular. First and second heart sounds normal. No murmurs, rubs or gallops. ABDOMEN: Abdominal exam reveals normal bowel sounds. Non-tender and non- distended. No evidence of peritonitis. EXTREMITITES: No clubbing, cyanosis, or edema. Past Medical History Past Medical History: Atrial Fibrillation, Coronary Artery Disease (CAD), Cancer , Chest Pain / Angina, Heart Failure, COPD, CVA/TIA, GERD/Reflux, GI Bleed, Hypertension, Myocardial Infarction (ID), Prostate Disorder Additional Past Medical History / Comment(s): INDWELLING CATHERER SINCE 11/25/13 - PROSTATE IS ENLARGED & STATES WILL BE NEEDING SURGERY PT GETS CHEST PAIN OFF & ON AFTER EXERTION MULTIPLE MYELOMA DX 7 HX TIA'S, ANEMIA, HX OF BLEEDING ULCER X2 Last Myocardial Infarction Date:: 2014 History of Any Multi-Drug Resistant Organisms: None Reported Past Surgical History: Appendectomy, Cholecystectomy, Coronary Bypass/CABG, Heart Catheterization With Stent, Hernia Repair, Joint Replacement Additional Past Surgical History / Comment(s): REPAIR OF ULCER X2. CABG X3 TOM[facility]S. HIP REPLACEMENTS 2005 & 2008WIFE STATES PT HAS 6 OR 7 STENTS. HERNIA - ING X 2. TOM[facility]S CATARACT. Past Anesthesia/Blood Transfusion Reactions: No Reported Reaction Date of Last Stent Placement:: UNKNOWN Past Psychological History: No Psychological Hx Reported Smoking Status: Never smoker Past Alcohol Use History: None Reported Past Drug Use History: None Reported - Past Family History Father Family Medical History: Myocardial Infarction (ID) Additional Family Medical History / Comment(s): HEAVY SMOKER Mother Family Medical History: No Reported History Medications and Allergies Home Medications Medication Instructions Recorded Confirmed Type Metoprolol Tartrate [Lopressor] 50 mg PO BID 12/01/13 11/08/17 History Nitroglycerin Sl Tabs [Nitrostat] 0.4 mg SUBLINGUAL Q5M PRN 07/13/14 11/08/17 History Furosemide [Lasix] 20 mg PO Q48H 08/03/14 11/08/17 History Potassium Chloride [Klor-Con 10] 10 meq PO DAILY 08/03/14 11/08/17 History Aspirin [Adult Low Dose Aspirin EC] 81 mg PO DAILY 10/26/16 11/08/17 History Atorvastatin [Lipitor] 40 mg PO DAILY 10/26/16 11/08/17 History Cetirizine HCl 10 mg PO DAILY 10/26/16 11/08/17 History Isosorbide Mononitrate ER [Imdur] 60 mg PO BID 10/26/16 11/08/17 History Magnesium Hydroxide [Milk of 2,400 mg PO DAILY PRN 10/26/16 11/08/17 History Magnesia] Melatonin 2 mg PO HS 10/26/16 11/08/17 History Pantoprazole Sodium [Protonix] 40 mg PO DAILY 10/26/16 11/08/17 History Ticagrelor [Brilinta] 60 mg PO BID 10/26/16 11/08/17 History Sodium Bicarbonate Tab 650 mg PO DAILY tab 10/29/16 11/08/17 Rx Bisacodyl 10 mg PO DAILY PRN 11/08/17 11/08/17 History DULoxetine HCL [Cymbalta] 60 mg PO DAILY 11/08/17 11/08/17 History Gabapentin [Neurontin] 600 mg PO BID 11/08/17 11/08/17 History Gentamicin Sulfate [Gentamicin 1 applic TOPICAL DAILY 11/08/17 11/08/17 History Sulfate 0.1%] HYDROcodone/APAP 5-325MG [[place] 1 tab PO Q6HR PRN 11/08/17 11/08/17 History 5-325] Sennosides-Docusate Sodium 1 tab PO DAILY 11/08/17 11/08/17 History [Senokot-S] Allergies Allergy/AdvReac Type Severity Reaction Status Date / Time cephalexin Allergy Unknown Verified 11/08/17 21:56 Latex, Natural Rubber Allergy Unknown Verified 12/28/14 08:46 Penicillins Allergy Rash/Hives Verified 11/08/17 21:56 & blisters Sulfa (Sulfonamide Allergy Unknown Verified 11/08/17 21:56 Antibiotics) Physical Exam Vitals: Vital Signs Temp Pulse Resp BP Pulse Ox 11/09/17 03:10 97.7 F 82 17 123/68 92 L 11/09/17 00:00 97.5 F L 70 17 121/58 97 Intake and Output 11/08/17 11/09/17 11/09/17 22:59 06:59 14:59 Intake Total 0 Output Total 1100 Balance -1100 0 Intake: Oral 0 Output: Urine 1100 Other: Voiding Method Indwelling Catheter # Voids 1 Weight 103.5 kg 103.5 kg Results - Lab Results Most recent lab results Calcium 10.2 mg/dL (8.4-10.2) 11/09/17 05:15 11/09/17 05:15 Assessment and Plan Plan: Assessment: #1. Nonoliguric acute kidney injury mostly prerenal secondary to diuresis. Creatinine up to 2.0 today. Baseline creatinine is near 1. No proteinuria noted on urinalysis. #2. Systolic CHF with ejection fraction of 35-40%. Compensated. #3. Pyuria. Urine culture pending. #4. History of multiple UTIs. Patient has a suprapubic catheter. #5. Hypernatremia secondary to lack of oral water intake and further free water losses from diuretics. #6. Metabolic acidosis secondary to acute kidney injury maintained on oral sodium bicarbonate. Plan: Hold diuretics. Start D5W to be run at 50 mL an hour. Check hemoglobin and iron studies. Follow-up cultures. Antibiotics per infectious disease recommendations. Encourage oral intake. Repeat electrolytes in the morning. Thank you for the consultation. I will continue to follow the patient with you during his hospital stay.
[2017-11-09 11:52] LABS: Anisocytosis Slight; HCT 28.8 % (39.0-53.0); HGB 8.9 gm/dL (13.0-17.5); Hypochromasia Slight; MCH 30.7 pg (25.0-35.0); MCHC 30.9 g/dL (31.0-37.0); MCV 99.3 fL (80.0-100.0); Macrocytosis Slight; Mean Platelet Volume 9.7; Platelet Count 100 k/uL (150-450); RDW 18.7 % (11.5-15.5); WBC 2.9 k/uL (3.8-10.6)
[2017-11-09] MEDS: DEXTROSE 5% IN WATER 1,000 ML IV SCH (12:11)
--- NOTE | 2017-11-09 12:26 | P.CONS ---
History of Present Illness - Reason for Consult Consult date: 11/09/17 Bone lesions, Hx of Multiple myeloma Requesting physician: Cait Zimmerman - Chief Complaint weakness, AMS - History of Present Illness Pt is seen for suspicious bone lesions found on routine imaging for anterior chest pain. [place] he went after a recent hospitalization for ARF, dehydration and UTI. At the [facility] he became progressively weaker and more confused which led to [place] ER visit. On evaluation there was work up to suggest myocardial infarction and he was transferred here. Pt is a poor historian and his past myeloma history is taken from office chart. Pt follows with Dr. Cutler annually and was last seen in December of 2016. Mr. Casanova was diagnosed in December 2013-that is the earliest documentation available and the earliest bone marrow report-with IgA multiple myeloma, marrow path revealed 70% bone marrow involvement with plasma cells at that time, skeletal survey showed lytic skull lesions. Pt was treated initially treated with Velcade and low dose dexamethasone. Treatment follow up bone marrow showed 13-15% plasma cells. He was placed on maintenance Revlimid mid 2014. He did well until October of 2015 when pt wanted a "break" from treatment. Since that time he has had no treatment for myeloma, annual follow up with Dr. Cutler. Last myeloma numbers in December 2016 were M-spike 0.4, Ig levels were all WNDL, BUN/Cr 46/1.39, [place] 46. Review of Systems ROS unobtainable: due to mental status Past Medical History Past Medical History: Atrial Fibrillation, Coronary Artery Disease (CAD), Cancer , Chest Pain / Angina, Heart Failure, COPD, CVA/TIA, GERD/Reflux, GI Bleed, Hypertension, Myocardial Infarction ([place]), Prostate Disorder Additional Past Medical History / Comment(s): INDWELLING CATHERER SINCE 11/25/13 - PROSTATE IS ENLARGED & STATES WILL BE NEEDING SURGERY PT GETS CHEST PAIN OFF & ON AFTER EXERTION MULTIPLE MYELOMA DX 7--14 HX TIA'S, ANEMIA, HX OF BLEEDING ULCER X2 Last Myocardial Infarction Date:: 2014 History of Any Multi-Drug Resistant Organisms: None Reported Past Surgical History: Appendectomy, Cholecystectomy, Coronary Bypass/CABG, Heart Catheterization With Stent, Hernia Repair, Joint Replacement Additional Past Surgical History / Comment(s): REPAIR OF ULCER X2. CABG X3 [facility]OM[facility]. HIP REPLACEMENTS 2005 & 2008WIFE STATES PT HAS 6 OR 7 STENTS. HERNIA - ING X 2. TOM[facility]S CATARACT. Past Anesthesia/Blood Transfusion Reactions: No Reported Reaction Date of Last Stent Placement:: UNKNOWN Past Psychological History: No Psychological Hx Reported Smoking Status: Never smoker Past Alcohol Use History: None Reported Past Drug Use History: None Reported - Past Family History Father Family Medical History: Myocardial Infarction ([place]) Additional Family Medical History / Comment(s): HEAVY SMOKER Mother Family Medical History: No Reported History Medications and Allergies Home Medications Medication Instructions Recorded Confirmed Type Metoprolol Tartrate [Lopressor] 50 mg PO BID 12/01/13 11/08/17 History Nitroglycerin Sl Tabs [Nitrostat] 0.4 mg SUBLINGUAL Q5M PRN 07/13/14 11/08/17 History Furosemide [Lasix] 20 mg PO Q48H 08/03/14 11/08/17 History Potassium Chloride [Klor-Con 10] 10 meq PO DAILY 08/03/14 11/08/17 History Aspirin [Adult Low Dose Aspirin EC] 81 mg PO DAILY 10/26/16 11/08/17 History Atorvastatin [Lipitor] 40 mg PO DAILY 10/26/16 11/08/17 History Cetirizine HCl 10 mg PO DAILY 10/26/16 11/08/17 History Isosorbide Mononitrate ER [Imdur] 60 mg PO BID 10/26/16 11/08/17 History Magnesium Hydroxide [Milk of 2,400 mg PO DAILY PRN 10/26/16 11/08/17 History Magnesia] Melatonin 2 mg PO HS 10/26/16 11/08/17 History Pantoprazole Sodium [Protonix] 40 mg PO DAILY 10/26/16 11/08/17 History Ticagrelor [Brilinta] 60 mg PO BID 10/26/16 11/08/17 History Sodium Bicarbonate Tab 650 mg PO DAILY tab 10/29/16 11/08/17 Rx Bisacodyl 10 mg PO DAILY PRN 11/08/17 11/08/17 History DULoxetine HCL [Cymbalta] 60 mg PO DAILY 11/08/17 11/08/17 History Gabapentin [Neurontin] 600 mg PO BID 11/08/17 11/08/17 History Gentamicin Sulfate [Gentamicin 1 applic TOPICAL DAILY 11/08/17 11/08/17 History Sulfate 0.1%] HYDROcodone/APAP 5-325MG [[place] 1 tab PO Q6HR PRN 11/08/17 11/08/17 History 5-325] Sennosides-Docusate Sodium 1 tab PO DAILY 11/08/17 11/08/17 History [Senokot-S] Allergies Allergy/AdvReac Type Severity Reaction Status Date / Time cephalexin Allergy Unknown Verified 11/08/17 21:56 Latex, Natural Rubber Allergy Unknown Verified 12/28/14 08:46 Penicillins Allergy Rash/Hives Verified 11/08/17 21:56 & blisters Sulfa (Sulfonamide Allergy Unknown Verified 11/08/17 21:56 Antibiotics) Physical Exam Vitals: Vital Signs Temp Pulse Resp BP Pulse Ox 11/09/17 03:10 97.7 F 82 17 123/68 92 L 11/09/17 00:00 97.5 F L 70 17 121/58 97 Intake and Output 11/08/17 11/09/17 11/09/17 22:59 06:59 14:59 Intake Total 0 Output Total 1100 Balance -1100 0 Intake: Oral 0 Output: Urine 1100 Other: Voiding Method Indwelling Catheter # Voids 1 Weight 103.5 kg 103.5 kg - Constitutional General appearance: cooperative, no acute distress, obese - EENT Eyes: anicteric sclerae ENT: normal oropharynx - Neck Neck: no lymphadenopathy - Respiratory Respiratory: bilateral: CTA - Cardiovascular Heart sounds: normal: S1, S2 - Gastrointestinal General gastrointestinal: no absent bowel sounds, no decreased bowel sounds, no distended, no hepatomegaly, no hyperactive bowel sounds, normal bowel sounds, no organomegaly, no rigid, no scaphoid, soft, no splenomegaly, no tenderness, no umbilical hernia, no ventral hernia - Neurologic hypo-reflexive lower extremity DTR - Musculoskeletal Musculoskeletal: generalized weakness Results CBC & Chem 7: 11/09/17 05:15 11/09/17 05:15 Labs: Abnormal Lab Results - Last 24 Hours (Table) 11/08/17 11/09/17 11/09/17 Range/Units 23:27 02:05 05:15 Sodium (137-145) mmol/L BUN (9-20) mg/dL Creatinine (0.66-1.25) mg/dL ALT (21-72) U/L Troponin I 0.403 H* 0.456 H* (0.000-0.034) ng/mL Total Protein (6.3-8.2) g/dL Albumin (3.5-5.0) g/dL Urine Blood Trace H (Negative) Ur Leukocyte Esterase Small H (Negative) Urine WBC 7 H (0-5) /hpf Urine Bacteria Rare H (None) /hpf Hyaline Casts 9 H (0-2) /lpf Urine Mucus Rare H (None) /hpf 11/09/17 Range/Units 05:15 Sodium 147 H (137-145) mmol/L BUN 34 H (9-20) mg/dL Creatinine 2.00 H (0.66-1.25) mg/dL ALT 6 L (21-72) U/L Troponin I (0.000-0.034) ng/mL Total Protein 11.7 H (6.3-8.2) g/dL Albumin 3.4 L (3.5-5.0) g/dL Urine Blood (Negative) Ur Leukocyte Esterase (Negative) Urine WBC (0-5) /hpf Urine Bacteria (None) /hpf Hyaline Casts (0-2) /lpf Urine Mucus (None) /hpf Assessment and Plan (1) Multiple myeloma in remission Narrative/Plan: Multiple labs have been ordered to compare to work up from last year to evaluate status of myeloma that was previously in remission. No evidence to suggest that pt current situation is specifically a result of myeloma at this time, work up pending. Renal function overall stable from last years labs. Current Visit: Yes Status: Chronic Priority: Medium Code(s): C90.01 - MULTIPLE MYELOMA IN REMISSION SNOMED Code(s): 89261235 (2) Pancytopenia Narrative/Plan: CBC was normal last year. Myeloma work up pending. No acute intervention at this time. Current Visit: Yes Status: Acute Priority: High Code(s): D61.818 - OTHER PANCYTOPENIA SNOMED Code(s): 680526665 Plan: Defer management of current condition to Attending and Consulting Physicians Doctor attests: I performed a history and physical examination of this patient, discussed with dictator. I agree with dictators note, documented as a scribe.
[2017-11-09 12:35] LABS: Band Neutrophils % 1 %; Eosinophils # (M) 0.06 k/uL (0-0.7); Lymphocytes # (M) 0.61 k/uL (1.0-4.8); Monocytes # (M) 0.38 k/uL (0-1.0); Neutrophils % (M) 63 %; Nucleated Red Blood Cells 0 /100 WBC (0-0); Total Cells Counted 100
[2017-11-09 12:37] LABS: Rouleaux Present
--- NOTE | 2017-11-09 13:02 | P.CRDCN ---
History of Present Illness Consult date: 11/09/17 Requesting physician: Mariam Buenrostro Reason for Consult (text): Abnormal troponin Chief complaint: Mental status changes History of present illness: This is a pleasant 87-year-old gentleman, he is not able to give a detailed history, most of this was obtained from the medical record, there is no family at bedside. Patient has known history of coronary artery disease and prior bypass surgery, also history of PCI, hypertension, hyperlipidemia, chronic kidney disease, multiple myeloma, prior CVA, GERD, COPD, prior GI bleed , prior E. coli and a UTI. Patient was brought to the hospital because of confusion, was found to have multiple medical issues including UTI, and was also noted to have a drop in hemoglobin. Troponins were obtained which came back to be abnormal, for this reason a cardiology consultation was requested. Patient is confused as to why he is here, he denies any chest discomfort, breathing overall is stable. EKG was performed which shows a normal sinus rhythm with right bundle branch block pattern and nonspecific ST-T wave changes. An echocardiogram with Doppler study was performed which revealed an ejection fraction of 40-45%. Basal posterior and inferior wall hypokinesia noted. Mild to moderate aortic regurg noted. Patient did have an echocardiogram with Doppler study performed earlier this month which showed an ejection fraction of 35-40%. Blood pressure 122/60, heart rate in the 80s. White blood cell count 2.9, hemoglobin 8.9, platelet count 100. Patient's hemoglobin on this most recent admission, one week ago, was 12.4. Sodium 147, potassium 4.5, BUN 34, creatinine 2.0. Creatinine 1 week ago 1.0. Troponins 0.40, 0.45, 0.56. At the time of my examination this morning, patient is pleasantly confused, denies any discomfort in the chest, denies any difficulty in breathing, no dizziness or lightheadedness. Past Medical History Past Medical History: Atrial Fibrillation, Coronary Artery Disease (CAD), Cancer , Chest Pain / Angina, Heart Failure, COPD, CVA/TIA, GERD/Reflux, GI Bleed, Hypertension, Myocardial Infarction ([place]), Prostate Disorder Additional Past Medical History / Comment(s): INDWELLING CATHERER SINCE 11/25/13 - PROSTATE IS ENLARGED & STATES WILL BE NEEDING SURGERY PT GETS CHEST PAIN OFF & ON AFTER EXERTION MULTIPLE MYELOMA DX 7-1-14 HX TIA'S, ANEMIA, HX OF BLEEDING ULCER X2 Last Myocardial Infarction Date:: 2014 History of Any Multi-Drug Resistant Organisms: None Reported Past Surgical History: Appendectomy, Cholecystectomy, Coronary Bypass/CABG, Heart Catheterization With Stent, Hernia Repair, Joint Replacement Additional Past Surgical History / Comment(s): REPAIR OF ULCER X2. CABG X3 [facility]. HIP REPLACEMENTS 2005 & 2008WIFE STATES PT HAS 6 OR 7 STENTS. HERNIA - ING X 2. [facility] CATARACT. Past Anesthesia/Blood Transfusion Reactions: No Reported Reaction Date of Last Stent Placement:: UNKNOWN Past Psychological History: No Psychological Hx Reported Smoking Status: Never smoker Past Alcohol Use History: None Reported Past Drug Use History: None Reported - Past Family History Father Family Medical History: Myocardial Infarction ([place]) Additional Family Medical History / Comment(s): HEAVY SMOKER Mother Family Medical History: No Reported History Medications and Allergies Home Medications Medication Instructions Recorded Confirmed Type Metoprolol Tartrate [Lopressor] 50 mg PO BID 12/01/13 11/08/17 History Nitroglycerin Sl Tabs [Nitrostat] 0.4 mg SUBLINGUAL Q5M PRN 07/13/14 11/08/17 History Furosemide [Lasix] 20 mg PO Q48H 08/03/14 11/08/17 History Potassium Chloride [Klor-Con 10] 10 meq PO DAILY 08/03/14 11/08/17 History Aspirin [Adult Low Dose Aspirin EC] 81 mg PO DAILY 10/26/16 11/08/17 History Atorvastatin [Lipitor] 40 mg PO DAILY 10/26/16 11/08/17 History Cetirizine HCl 10 mg PO DAILY 10/26/16 11/08/17 History Isosorbide Mononitrate ER [Imdur] 60 mg PO BID 10/26/16 11/08/17 History Magnesium Hydroxide [Milk of 2,400 mg PO DAILY PRN 10/26/16 11/08/17 History Magnesia] Melatonin 2 mg PO HS 10/26/16 11/08/17 History Pantoprazole Sodium [Protonix] 40 mg PO DAILY 10/26/16 11/08/17 History Ticagrelor [Brilinta] 60 mg PO BID 10/26/16 11/08/17 History Sodium Bicarbonate Tab 650 mg PO DAILY tab 10/29/16 11/08/17 Rx Bisacodyl 10 mg PO DAILY PRN 11/08/17 11/08/17 History DULoxetine HCL [Cymbalta] 60 mg PO DAILY 11/08/17 11/08/17 History Gabapentin [Neurontin] 600 mg PO BID 11/08/17 11/08/17 History Gentamicin Sulfate [Gentamicin 1 applic TOPICAL DAILY 11/08/17 11/08/17 History Sulfate 0.1%] HYDROcodone/APAP 5-325MG [[place] 1 tab PO Q6HR PRN 11/08/17 11/08/17 History 5-325] Sennosides-Docusate Sodium 1 tab PO DAILY 11/08/17 11/08/17 History [Senokot-S] Allergies Allergy/AdvReac Type Severity Reaction Status Date / Time cephalexin Allergy Unknown Verified 11/08/17 21:56 Latex, Natural Rubber Allergy Unknown Verified 12/28/14 08:46 Penicillins Allergy Rash/Hives Verified 11/08/17 21:56 & blisters Sulfa (Sulfonamide Allergy Unknown Verified 11/08/17 21:56 Antibiotics) Physical Exam Vitals: Vital Signs Temp Pulse Resp BP Pulse Ox 11/09/17 11:59 93 L 11/09/17 08:20 96.1 F L 87 18 125/66 96 11/09/17 03:10 97.7 F 82 17 123/68 92 L 11/09/17 00:00 97.5 F L 70 17 121/58 97 Intake and Output 11/08/17 11/09/17 11/09/17 22:59 06:59 14:59 Intake Total 0 Output Total 1100 Balance -1100 0 Intake: Oral 0 Output: Urine 1100 Other: Voiding Method Indwelling Catheter # Voids 1 Weight 103.5 kg 103.5 kg PHYSICAL EXAMINATION: HEENT: [Head is atraumatic, normocephalic. Pupils equal, round. Neck is supple. There is no elevated jugular venous pressure.] HEART EXAMINATION: Heart S1 and S2 with systolic murmur is heard. CHEST EXAMINATION:[ Lungs are clear to auscultation and precussion. No chest wall tenderness is noted on palpation or with deep breathing.] ABDOMEN: [ Soft, nontender. Bowel sounds are heard. No organomegaly noted]. EXTREMITIES:[ 2+ peripheral pulses with no evidence of peripheral edema and no calf tenderness noted]. NEUROLOGIC [patient is awake, alert, confused Results 11/09/17 05:15 11/09/17 05:15 Cardiac Enzymes 11/08/17 11/09/17 11/09/17 Range/Units 23:27 05:15 05:15 AST 29 (17-59) U/L Troponin I 0.403 H* 0.456 H* (0.000-0.034) ng/mL 11/09/17 Range/Units 11:20 AST (17-59) U/L Troponin I 0.566 H* (0.000-0.034) ng/mL CBC 11/09/17 Range/Units 05:15 WBC 2.9 L (3.8-10.6) k/uL RBC 2.90 L (4.30-5.90) m/uL Hgb 8.9 L (13.0-17.5) gm/dL Hct 28.8 L (39.0-53.0) % Plt Count 100 L (150-450) k/uL Comprehensive Metabolic Panel 11/09/17 Range/Units 05:15 Sodium 147 H (137-145) mmol/L Potassium 4.5 (3.5-5.1) mmol/L Chloride 104 (98-107) mmol/L Carbon Dioxide 22 (22-30) mmol/L BUN 34 H (9-20) mg/dL Creatinine 2.00 H (0.66-1.25) mg/dL Glucose 89 (74-99) mg/dL Calcium 10.2 (8.4-10.2) mg/dL AST 29 (17-59) U/L ALT 6 L (21-72) U/L Alkaline Phosphatase 56 (38-126) U/L Total Protein 11.7 H (6.3-8.2) g/dL Albumin 3.4 L (3.5-5.0) g/dL Current Medications Generic Name Dose Route Start Last Admin Trade Name Freq PRN Reason Stop Dose Admin Acetaminophen 650 mg 11/08/17 22:48 Tylenol Tab PO Q4HR PRN Fever and/ or Pain Hydrocodone Bitart/Acetaminophen 1 each 11/09/17 01:26 11/09/17 05:43 [place] 5-325 PO 1 each Q6HR PRN Administration Pain Aspirin 81 mg 11/09/17 09:00 11/09/17 09:10 Aspirin PO 81 mg DAILY [facility] Administration Atorvastatin Calcium 40 mg 11/09/17 09:00 11/09/17 09:09 Lipitor PO 40 mg DAILY [facility] Administration Bisacodyl 10 mg 11/09/17 09:00 Dulcolax PO DAILY PRN Constipation Duloxetine HCl 60 mg 11/09/17 09:00 11/09/17 09:09 Cymbalta PO 60 mg DAILY [facility] Administration Gabapentin 600 mg 11/09/17 09:00 11/09/17 09:09 Neurontin PO 600 mg BID [facility] Administration Gentamicin Sulfate 1 applic 11/09/17 09:00 11/09/17 09:10 Gentamicin 0.1% Cream TOPICAL 1 applic DAILY [facility] Administration Levofloxacin 750 mg/ IV 150 mls @ 100 mls/hr 11/11/17 08:00 Solution IVPB Q48H [facility] Dextrose/Water 1,000 mls @ 50 mls/hr 11/09/17 11:15 Dextrose 5%-Water Iv Soln IV .Q20H [facility] Isosorbide Mononitrate 60 mg 11/09/17 09:00 11/09/17 09:09 Imdur PO 60 mg BID [facility] Administration Loratadine 10 mg 11/09/17 09:00 11/09/17 09:09 Claritin PO 10 mg DAILY [facility] Administration Magnesium Hydroxide 2,400 mg 11/09/17 01:26 Milk Of Magnesia PO DAILY PRN Constipation Melatonin 2 mg 11/09/17 21:00 Melatonin PO [facility] Metoprolol Tartrate 50 mg 11/09/17 09:00 11/09/17 09:11 Lopressor PO 50 mg BID [facility] Administration Nitroglycerin 0.4 mg 11/09/17 01:26 Nitrostat SUBLINGUAL Q5M PRN Chest Pain Ondansetron HCl 4 mg 11/08/17 22:49 Zofran IVP Q6HR PRN Nausea And Vomiting Pantoprazole Sodium 40 mg 11/09/17 09:00 11/09/17 09:15 Protonix PO 40 mg DAILY [facility] Administration Potassium Chloride 10 meq 11/09/17 09:00 11/09/17 09:10 K-Dur 10 PO 10 meq DAILY [facility] Administration Senna/Docusate Sodium 1 each 11/09/17 09:00 11/09/17 09:11 Senokot-S PO 1 each DAILY [facility] Administration Sodium Bicarbonate 650 mg 11/09/17 09:00 11/09/17 09:10 Sodium Bicarbonate Tab PO 650 mg DAILY [facility] Administration Ticagrelor 90 mg 11/09/17 09:00 11/09/17 09:21 Brilinta PO 90 mg BID [facility] Administration Intake and Output 11/08/17 11/09/17 11/09/17 22:59 06:59 14:59 Intake Total 0 Output Total 1100 Balance -1100 0 Intake: Oral 0 Output: Urine 1100 Other: Voiding Method Indwelling Catheter # Voids 1 Weight 103.5 kg 103.5 kg 11/09/17 05:15 11/09/17 05:15 EKG Interpretations (text) EKG shows a normal sinus rhythm with a right bundle branch block pattern and nonspecific ST-T wave changes. Assessment and Plan Plan: Assessment and plan #1 mental status changes #2 known history of coronary artery disease with prior bypass surgery and stent placements, apparently the stent placements have been quite some time ago according to Dr. TANIA Goodman's consultation one year ago, he still taking Brilinta which we could discontinue. #3 acute on chronic kidney disease #4 COPD #5 prior CVA #6 hypertension #7 history of multiple myeloma #8 abnormal troponins, could be secondary to abnormal renal function. Cannot completely rule out non-Q-wave myocardial infarction, we will maximize patient' s medical therapy. #9 anemia, Hemoglobin 8.9, 12.4 one week ago. Plan We will discontinue the Brilinta, continue with a baby aspirin daily along with Lipitor, Imdur, metoprolol, patient is not currently on an CLARKE inhibitor because of abnormal renal function. Further recommendations to follow. DNP note has been reviewed, I agree with a documented findings and plan of care. Patient was seen and examined.
--- NOTE | 2017-11-09 13:33 | P.PN ---
Progress Note - Text this is an addendum to the dictated cardiology consultation. The patient presents with evidence of dehydration, worsening renal function and minimal elevation of the troponin. He is awake but confused. I am not able to obtain any history to suggest cardiac issues at this time. He has a history of CABG in the past and has been followed by guitar repairer in [place]. The detail of his prior workup is unclear to me. He has a history of ischemic cardiomyopathy that was documented during prior admission but he has no evidence of CHF at this time. His physical examination shows clear lungs and he is in sinus mechanism. He has no peripheral edema. The elevation of the troponin is most likely related to his renal function. I see no evidence of acute cardiac decompensation. I will stop Brilinta and continue hydration. From the cardiac standpoint no further cardiac workup is needed. Thank you for this consult we will follow with you.
[2017-11-09 16:05] LABS: Iron Saturation 54.81 (15.00-50.00)
[2017-11-09] MEDS: cefTRIAXone IN SWFI 1,000 MG/10 ML SYRINGE IVP SCH (16:30)
--- NOTE | 2017-11-09 17:41 | P.PN ---
Subjective Progress Note Date: 11/09/17 Progress note being dictated for Dr. Hodges. Interval history: This 77-year-old gentleman admitted with chest pain, possible acute non-STEMI, change in mental status, possible acute UTI, acute on chronic renal failure in a patient with multiple myeloma and multiple other medical issues. Maintained on broad-spectrum IV antibiotics. Echo reporting mild to moderately impaired LV function, EF 40-45%, mild to moderate aortic regurgitation, aortic root dilated, 3.9 cm. maintained on IV fluid hydration .evaluated by cardiology, Brilenta discontinued, with no further cardiac workup recommended at this time. Evaluated by oncology/hematology, nephrology, infectious disease with recommendations noted. Sodium 147, maintained on D5W. Objective - Vital Signs Vital signs: Vital Signs Temp 96.1 F L 11/09/17 08:20 Pulse 87 11/09/17 08:20 Resp 18 11/09/17 08:20 BP 125/66 11/09/17 08:20 Pulse Ox 93 L 11/09/17 11:59 Intake & Output 11/08/17 11/09/17 11/09/17 18:59 06:59 18:59 Intake Total 0 Output Total 1100 Balance -1100 0 Weight 103.5 kg Intake: Oral 0 Output: Urine 1100 Other: Voiding Method Indwelling Catheter # Voids 1 - Exam PHYSICAL EXAM: VITAL SIGNS: [As above] GENERAL: Sitting up in bed, no acute distress HEENT: Conjunctivae normal. eyes normal. Oral mucosa moist NECK: No JVD. No thyroid enlargement. No LNs CARDIOVASCULAR: S1, S2 muffled. No murmur RESPIRATION: Breath sounds diminished in the bases. Scattered rhonchi and fine bibasilar crackles. ABDOMEN: Soft, nontender . No guarding. no masses palpable. Bowel sounds heard. LEGS: No edema. no swelling PSYCHIATRY: Alert and oriented -3, mood and affect normal. NERVOUS SYSTEM: Cranial N 2-12 grossly normal. Moves all 4 limbs. Diffuse weakness No focal deficits. No sensory deficit. Skin: no ulcer no rash Lymphatic system. No LN neck axilla or groin. - Labs CBC & Chem 7: 11/09/17 05:15 11/09/17 05:15 Labs: Abnormal Lab Results - Last 24 Hours (Table) 11/08/17 11/09/17 11/09/17 Range/Units 23:27 02:05 05:15 WBC (3.8-10.6) k/uL RBC (4.30-5.90) m/uL Hgb (13.0-17.5) gm/dL Hct (39.0-53.0) % MCHC (31.0-37.0) g/dL RDW (11.5-15.5) % Plt Count (150-450) k/uL Lymphocytes # (Manual) (1.0-4.8) k/uL Sodium (137-145) mmol/L BUN (9-20) mg/dL Creatinine (0.66-1.25) mg/dL ALT (21-72) U/L Troponin I 0.403 H* 0.456 H* (0.000-0.034) ng/mL Total Protein (6.3-8.2) g/dL Albumin (3.5-5.0) g/dL Urine Blood Trace H (Negative) Ur Leukocyte Esterase Small H (Negative) Urine WBC 7 H (0-5) /hpf Urine Bacteria Rare H (None) /hpf Hyaline Casts 9 H (0-2) /lpf Urine Mucus Rare H (None) /hpf 11/09/1718 11/09/17 Range/Units 05:15 05:15 11:20 WBC 2.9 L (3.8-10.6) k/uL RBC 2.90 L (4.30-5.90) m/uL Hgb 8.9 L (13.0-17.5) gm/dL Hct 28.8 L (39.0-53.0) % MCHC 30.9 L (31.0-37.0) g/dL RDW 18.7 H (11.5-15.5) % Plt Count 100 L (150-450) k/uL Lymphocytes # (Manual) 0.61 L (1.0-4.8) k/uL Sodium 147 H (137-145) mmol/L BUN 34 H (9-20) mg/dL Creatinine 2.00 H (0.66-1.25) mg/dL ALT 6 L (21-72) U/L Troponin I 0.566 H* (0.000-0.034) ng/mL Total Protein 11.7 H (6.3-8.2) g/dL Albumin 3.4 L (3.5-5.0) g/dL Urine Blood (Negative) Ur Leukocyte Esterase (Negative) Urine WBC (0-5) /hpf Urine Bacteria (None) /hpf Hyaline Casts (0-2) /lpf Urine Mucus (None) /hpf Assessment and Plan Assessment: 1. Change in mental status, possible acute UTI with sepsis secondary to chronic indwelling Reid catheter, present on admission. 2. Chest pain, with a possible STEMI with Troponin 0.566 3. Acute on chronic kidney disease 4. Chronic congestive heart failure, systolic dysfunction, EF 35-40% 5. History of multiple myeloma 6. CAD history of VT, CABG, stent 7. No code, no CPR, no intubation 8. Hypernatremia secondary to dehydration, diuretics Plan: Continue on current medication regime ,monitoring and symptomatic treatment. Gentle IV fluid hydration of D5/W for hypernatremia. No further cardiac workup recommended at this time as per cardiology. Myeloma workup pending. Diuretics on hold. Urine culture pending. Antibiotics as per infectious disease. Close monitoring of electrolytes, renal function, CBC with repeat labs ordered for a.m. further recommendations to follow. The impression and plan of care has been dictated as directed. : I performed a history and examination of this patient, discussed the same with the dictator. I agree with the dictator's note ,documented as a scribe. Any additional findings or plans will be noted.
[2017-11-09 17:52] LABS: Protein, Total 10.3 g/dL (6.2-8.2)
[2017-11-09] MEDS: MELATONIN 1 MG TAB PO SCH (21:19)
--- NOTE | 2017-11-10 06:27 | CONS ---
CONSULTATION DATE OF SERVICE: 11/09/2017 REASON FOR CONSULTATION: Infection. HISTORY OF PRESENT ILLNESS: The patient is an 87-year-old, male who has been evaluated at the [facility] for apparently mental status changes and abnormal EKG. The patient at that time noticed to have significantly positive UA. His Reid catheter has been changed and subsequently has been transferred to [facility] for further evaluation of his underlying clinical condition. Currently he has been evaluated by Nephrology, Oncology and Cardiology. Infectious Disease was consulted for further recommendations regarding his antibiotic therapy as the patient did have multiple antibiotic allergies. The patient's and son provided most of the history. The patient apparently noted to be very weak, confused and have no energy, but not specifically for any high-grade fever did have some chills. The patient denies having any headache. He was complaining of some chest pain, which seemed to have improved now, occasional cough, but not bringing up any sputum. Patient denies any abdominal pain. No diarrhea. The patient did have a chronic indwelling Reid catheter for underlying urinary retention that apparently has been changed about 3 days prior to being transferred to this facility. The patient denies having any diarrhea and no swelling or redness of his legs. Apparently he was noticed to have some problems with aspiration and swallow evaluation has been ordered. REVIEW OF SYSTEMS: CONSTITUTIONAL: Positive for weakness along with chills. EYES: No complaint. ENT: No complaint. RESPIRATORY: As per HPI. CARDIOVASCULAR: As per HPI. GENITOURINARY: As per HPI. GASTROINTESTINAL: No complaint. MUSCULOSKELETAL: No complaint. INTEGUMENTARY: No complaint. PSYCHOLOGICAL: No complaint. ENDOCRINE: No complaint. NEUROLOGICAL: No complaint. PAST MEDICAL HISTORY: Prostate cancer, history of urinary retention requiring suprapubic catheter, history of recurrent UTI, gastroesophageal reflux disease, CVA, TIA, coronary artery disease. PAST SURGICAL HISTORY: Suprapubic catheter placement. SOCIAL HISTORY: No history of smoking, drinking or drug use. FAMILY HISTORY: No pertinent findings noticed. ALLERGIES: Allergies to PENICILLIN, SULFA along with CEPHALEXIN, however, the patient tolerated Rocephin without any problem. MEDICATION: Medications currently include the patient is on Tylenol, [place], aspirin, Lipitor, Dulcolax, Cymbalta, Neurontin, Imdur, levofloxacin, Claritin, milk of magnesia, melatonin, Lopressor, Nitrostat, Zofran, Protonix, K-Dur, Senokot, sodium bicarbonate. PHYSICAL EXAMINATION: On examination, blood pressure 116/64, pulse of 75, temperature 98.5. He is 97% on 2 L nasal cannula. General description is an elderly male, lying in bed in no distress. No tachypnea or accessory muscle of respiration use. HEENT examination shows slight pallor. No scleral icterus. Oral mucous membranes dry. NECK: Trachea central. No thyromegaly. LUNGS: Unlabored breathing with decreased breath sounds at the bases. No wheeze. HEART: S1, S2. Regular rate and rhythm. ABDOMEN: Soft, no tenderness. No guarding or rigidity. EXTREMITIES: No edema of the feet. SKIN EXAMINATION: No rash or mass palpable. NEUROLOGICAL: Patient is awake, alert, oriented x2. Mood and affect normal. LABS: Hemoglobin 8.9, white count 2.9 with a BUN of 34, creatinine is 2.0. Electrolytes have been normal. Liver enzymes are normal. Urine has small leukocyte esterases, 7 WBC with cultures currently pending. DIAGNOSTIC IMPRESSION AND PLAN: 1. Patient being transferred to this facility for evaluation of weakness, lethargy, which is likely multifactorial in this patient known to have a history of a recurrent urinary tract infection and chronic indwelling Reid because of urinary retention with previous history of Escherichia coli infection with the RN concerned about his possible aspiration with underlying pneumonia not entirely excluded. 2. Patient does have multiple antibiotic allergies that do limit the number of antibiotics that could be safely used. PLAN: 1. We will obtain a chest x-ray, PA and lateral. 2. We will try to obtain sputum for Gram stain culture and sensitivity. 3. We will keep the patient on Levaquin, however, add Rocephin 1 gram IV piggyback daily. 4. Obtain ultrasound of his kidneys because of recurrent UTIs and elevated creatinine. 5. We will follow up on the clinical condition and culture to further adjust medication if needed. Thank you for this consultation. Will follow this patient along with you. MMODL / IJN: [id number] /
[2017-11-10 06:40] LABS: Potassium 4.2 mmol/L (3.5-5.1)
[2017-11-10 06:47] LABS: Anisocytosis Slight; Basophils % (A) 0 %; Eosinophils # (A) 0.1 k/uL (0-0.7); Eosinophils % (A) 2 %; HCT 24.6 % (39.0-53.0); Hypochromasia Slight; Lymphocytes # (A) 0.6 k/uL (1.0-4.8); Lymphocytes % (A) 24 %; MCH 32.1 pg (25.0-35.0); MCHC 32.7 g/dL (31.0-37.0); MCV 98.4 fL (80.0-100.0); Macrocytosis Slight; Mean Platelet Volume 8.4; Monocytes # (A) 0.3 k/uL (0-1.0); Monocytes % (A) 11 %; Neutrophils # (A) 1.6 k/uL (1.3-7.7); Neutrophils % (A) 59 %; RDW 18.9 % (11.5-15.5); WBC 2.6 k/uL (3.8-10.6)
[2017-11-10 07:15] LABS: Platelet Count 98 k/uL (150-450)
--- NOTE | 2017-11-10 09:34 | P.PN ---
Subjective Patient is seen in follow-up for acute kidney injury on chronic kidney disease. Patient's baseline creatinine is 1 and elevated at 2.4 today. He is currently resting in bed. He does of systolic CHF with ejection fraction of 40% . Patient has a suprapubic Reid catheter for underlying urinary retention which was changed prior to this admission. He has history of recurrent UTIs. Oral intake is poor. He is nonoliguric. Denies chest pain or shortness of breath. Vital signs are stable. General: The patient appeared well nourished and normally developed. HEENT: Head exam is unremarkable. Neck is without jugular venous distension. LUNGS: Lungs are clear to auscultation and percussion. Breath sounds decreased. HEART: Rate and Rhythm are regular. First and second heart sounds normal. No murmurs, rubs or gallops. ABDOMEN: Abdominal exam reveals normal bowel sounds. Non-tender and non- distended. No evidence of peritonitis. EXTREMITITES: No clubbing, cyanosis, or edema. Objective - Vital Signs Vital signs: Vital Signs Temp 94 F L 11/10/17 04:00 Pulse 62 11/10/17 04:00 Resp 18 11/10/17 04:00 BP 114/57 11/10/17 04:00 Pulse Ox 94 L 11/10/17 04:00 Intake & Output 11/09/17 11/10/17 11/10/17 18:59 06:59 18:59 Intake Total 410 200 0 Output Total 700 400 Balance -290 -200 0 Weight 0 g Intake: Intake, IV Titration 150 200 Amount Dextrose 5% in Water 1, 200 000 ml @ 50 mls/hr IV . Q20H [facility] Rx#:[id number] Levofloxacin 750Mg-D5w 150 Pmx 750 mg In Dextrose/ Water 1 150ml.bag @ 100 mls/hr IVPB Q48H [facility] Rx#: [id number] Oral 260 0 Output: Urine 700 400 Other: Voiding Method Indwelling Catheter Toilet Indwelling Catheter # Voids 1 - Labs CBC & Chem 7: 11/10/17 05:40 11/10/17 05:40 Labs: Abnormal Lab Results - Last 24 Hours (Table) 11/09/17 11/09/17 11/09/17 Range/Units 05:15 05:15 05:15 WBC 2.9 L (3.8-10.6) k/uL RBC 2.90 L (4.30-5.90) m/uL Hgb 8.9 L (13.0-17.5) gm/dL Hct 28.8 L (39.0-53.0) % MCHC 30.9 L (31.0-37.0) g/dL RDW 18.7 H (11.5-15.5) % Plt Count 100 L (150-450) k/uL Lymphocytes # (1.0-4.8) k/uL Lymphocytes # (Manual) 0.61 L (1.0-4.8) k/uL BUN (9-20) mg/dL Creatinine (0.66-1.25) mg/dL Glucose (74-99) mg/dL TIBC 135 L (228-460) ug/dL Iron Saturation 54.81 H (15.00-50.00) Troponin I (0.000-0.034) ng/mL Total Protein (PEP) 10.3 H (6.2-8.2) g/dL 11/09/17 11/10/17 11/10/17 Range/Units 11:20 05:40 05:40 WBC 2.6 L (3.8-10.6) k/uL RBC 2.50 L (4.30-5.90) m/uL Hgb 8.0 L (13.0-17.5) gm/dL Hct 24.6 L (39.0-53.0) % MCHC (31.0-37.0) g/dL RDW 18.9 H (11.5-15.5) % Plt Count 98 L (150-450) k/uL Lymphocytes # 0.6 L (1.0-4.8) k/uL Lymphocytes # (Manual) (1.0-4.8) k/uL BUN 37 H (9-20) mg/dL Creatinine 2.40 H (0.66-1.25) mg/dL Glucose 105 H (74-99) mg/dL TIBC (228-460) ug/dL Iron Saturation (15.00-50.00) Troponin I 0.566 H* (0.000-0.034) ng/mL Total Protein (PEP) (6.2-8.2) g/dL Microbiology - Last 24 Hours (Table) 11/09/17 05:15 Blood Culture - Preliminary Blood No Growth after 24 hours 11/08/17 22:44 Urine Culture - Preliminary Urine,Catheterized Assessment and Plan Plan: Assessment: #1. Nonoliguric acute kidney injury secondary to ATN. Creatinine up to 2.4 today. Baseline creatinine is near 1. No proteinuria noted on urinalysis. #2. Systolic CHF with ejection fraction of 40%. Compensated. #3. Pyuria. Urine culture pending. #4. History of multiple UTIs. Patient has a suprapubic catheter. #5. Hypernatremia secondary to lack of oral water intake and further free water losses from diuretics. Improved. #6. Metabolic acidosis secondary to acute kidney injury maintained on oral sodium bicarbonate. #7. Anemia. Iron replete. No active bleeding noted. #8. History of multiple myeloma in remission. Oncology following. Plan: Hold diuretics. I will change fluids to half-normal saline to be run at 75 mL an hour. Follow-up cultures. Antibiotics per infectious disease recommendations. Encouraged oral intake. Repeat electrolytes in the morning. Follow-up kidney ultrasound.
--- NOTE | 2017-11-10 09:42 | CDI ---
Last Revision, June 2017 Documentation Clarification Form Date: 11/10/17 From: Janet Nicolas RN Admit Date: 11/08/2017 9:14:00 PM Patient Name: Juan Manuel Casanova Visit Number: [id number] ATTENTION: The Clinical Documentation Specialists (CDI) and [facility] Coding Staff appreciate your assistance in clarifying documentation. Please respond to the clarification below the line at the bottom and electronically sign. The CDI & [facility] Coding staff will review the response and follow-up if needed. Please note: Queries are made part of the Legal Health Record. If you have any questions, please contact the author of this message via ITS. Dr. Maritza Hodges, A diagnosis of anemia lacks specificity to accurately reflect your patients severity of condition and clarification is needed. History/Risk Factors: a fib, chf, copd, cva, gerd, gi bleed, mi, acute renal failure, uti,tia, prostate disorder, anemia presented with weakness and changes in mental status Clinical indicators: Hemoglobin: 8.9 Hematocrit: 28.8 Treatment: monitor labs In order to capture the severity of condition, please clarify the type of anemia and etiology if known: Acute blood loss anemia Acute on chronic blood loss anemia Iron deficiency anemia Nutritional anemia Unable to determine Other, please specify Please continue to document in your progress notes, under the line below and/ or in the discharge summary in order to capture severity of illness and risk of mortality. Include clinical findings that support your diagnosis. Unable to determine MTDD
--- NOTE | 2017-11-10 10:03 | CDI ---
Last Revision, June 2017 Documentation Clarification Form Date: 11/10/17 From: Janet Nicolas RN Admit Date: 11/08/2017 9:14:00 PM Patient Name: Juan Manuel Casanova Visit Number: [id number] ATTENTION: The Clinical Documentation Specialists (CDI) and [facility] Coding Staff appreciate your assistance in clarifying documentation. Please respond to the clarification below the line at the bottom and electronically sign. The CDI & [facility] Coding staff will review the response and follow-up if needed. Please note: Queries are made part of the Legal Health Record. If you have any questions, please contact the author of this message via ITS. Andrew Chris, History/Risk Factors: a fib, chf, copd, cva, gerd, gi bleed, mi, acute renal failure, uti,tia, prostate disorder, anemia Clinical Indicators: Current BUN/CR/GFR: 37/2.40/24 Baseline from 10/29: 24/.03/ >60 Treatment: IVF: .45 @75 monitor labs In order to capture the severity of condition, please clarify if the condition signifies: CKD Stage 1 (GFR > 90) CKD Stage 2 (GFR 60-89) CKD Stage 3 (GFR 30-59) CKD Stage 4 (GFR 15-29) CKD Stage 5 (GFR <15) Other, please specify Unable to determine Please continue to document in your progress notes and discharge summary in order to capture severity of illness and risk of mortality. Include clinical findings that support your diagnosis. MTDD
--- NOTE | 2017-11-10 10:24 | CDI ---
Last Revision, June 2017 Documentation Clarification Form Date: 11/10/17 From: Janet Nicolas RN Admit Date: 11/08/2017 9:14:00 PM Patient Name: Juan Manuel Casanova Visit Number: [id number] ATTENTION: The Clinical Documentation Specialists (CDI) and [facility] Coding Staff appreciate your assistance in clarifying documentation. Please respond to the clarification below the line at the bottom and electronically sign. The CDI & [facility] Coding staff will review the response and follow-up if needed. Please note: Queries are made part of the Legal Health Record. If you have any questions, please contact the author of this message via ITS. Dr. Kenia Saleh, Atrial fibrillation is documented in the Consult 11/09/17 History/Risk Factors: a fib, chf, copd, cva, gerd, gi bleed, mi, acute renal failure, uti,tia, prostate disorder Clinical Indicators: EKG/telemetry: normal sinus Treatment: Consults: cardiology In your professional opinion, can you please clarify the type of atrial fibrillation, if known? Chronic/Permanent Paroxysmal Persistent Other, please specify Unable to determine Please continue to document in your progress notes, under the line below and/ or in the discharge summary in order to capture severity of illness and risk of mortality. Include clinical findings that support your diagnosis. MTDD
[2017-11-10] MEDS: DEXTROSE 5% IN WATER 1,000 ML IV SCH (11:12)
[2017-11-10] MEDS: ATORVASTATIN 40 MG TAB PO SCH (11:28)
[2017-11-10] MEDS: ASPIRIN 81 MG PO SCH (11:28)
[2017-11-10] MEDS: cefTRIAXone IN SWFI 1,000 MG/10 ML SYRINGE IVP SCH (11:28)
[2017-11-10 11:29] LABS: Immunoglobulin M <16.9 mg/dL (40.0-280.0)
[2017-11-10] MEDS: LORATADINE 10 MG TAB PO SCH (11:29)
[2017-11-10] MEDS: METOPROLOL TARTRATE 50 MG TAB PO SCH ×2 (11:29→21:40)
[2017-11-10] MEDS: DULoxetine HCL 60 MG CAPSULE.DR PO SCH (11:29)
[2017-11-10] MEDS: ISOSORBIDE MONONITRATE ER 60 MG TAB.ER.24H PO SCH ×2 (11:29→21:40)
[2017-11-10] MEDS: PANTOPRAZOLE 40 MG TABLET PO SCH (11:30)
[2017-11-10] MEDS: GABAPENTIN 300 MG CAP PO SCH ×2 (11:30→21:40)
[2017-11-10] MEDS: SENNOSIDES-DOCUSATE SODIUM 1 EACH TAB PO SCH (11:31)
[2017-11-10] MEDS: SODIUM BICARBONATE TAB 650 MG TAB PO SCH (11:31)
[2017-11-10] MEDS: POTASSIUM CHLORIDE ER 10 MEQ TAB.ER.PRT PO SCH (11:32)
--- NOTE | 2017-11-10 13:03 | PN ---
PROGRESS NOTE DATE OF SERVICE: 11/10/2017 REASON FOR FOLLOWUP: Possible UTI with an aspiration pneumonia. INTERVAL HISTORY: The patient appears to slightly as compared with this morning. However, the patient was sleepy though easily arousable though denies having any chest pain. Occasional cough. No nausea or vomiting. No abdominal pain and no diarrhea. PHYSICAL EXAMINATION: Blood pressure 114/57, pulse of 82, temperature of 94. He is 94% on 2 L nasal cannula. General description is an elderly male, lying in bed in no distress. RESPIRATORY SYSTEM: Unlabored breathing with decreased breath sounds at the bases, no wheeze. HEART: S1, S2. Regular rate and rhythm. ABDOMEN: Soft, no tenderness. EXTREMITIES: No edema of the feet. LABS: Hemoglobin 8, white count 2.6, BUN of 37, creatinine 2.40. Blood cultures so far are pending. DIAGNOSTIC IMPRESSION AND PLAN: Patient admitted to the hospital with mental status changes, concern for possible catheter-associated urinary tract infection with possible aspiration pneumonia. Repeat x-ray has been ordered for them to be completed. Keep the patient on the Rocephin and Levaquin at this point until the culture finalizes. Continue supportive care. MMODL / IJN: [id number] /
--- NOTE | 2017-11-10 13:20 | XR ---
EXAMINATION TYPE: XR chest 1V portable DATE OF EXAM: 11/10/2017 COMPARISON: 10/26/2016 HISTORY: Pneumonia TECHNIQUE: Single frontal view of the chest is obtained. FINDINGS: The heart is prominent with postsurgical change and atherosclerotic change aorta. Arthropa thy of the shoulders. No pneumothorax or interstitial edema. No definite consolidation or overt failu re. IMPRESSION: 1. No definite acute process.
[2017-11-10 14:03] LABS: Albumin 2.97 g/dL (3.80-4.90); Gamma Globulin 5.73 g/dL (0.70-1.50)
--- NOTE | 2017-11-10 14:21 | P.CONS ---
History of Present Illness - Reason for Consult Consult date: 11/10/17 Anemia possible GI bleed Requesting physician: Maritza Hodges - History of Present Illness 87-year-old gentleman patient of Dr. Sandoval transferred from [facility] 2 days ago with mental status changes acute renal failure dehydration with mild elevation of troponin UTI and possible aspiration pneumonia. He has a past medical history of A. fib, CABG, ischemic cardiomyopathy, chronic kidney disease, COPD, multiple myeloma, and upper GI bleed 2 in 2013. He has been evaluated by cardiology no further workup planned at this time. Home medications include but not limited to baby aspirin and brillinta. No NSAIDs or alcohol. Presently he is very drowsy; information obtained from medical records and nursing staff, no reports of overt GI bleeding such as hematemesis hematochezia melena. Hemoglobin and [place] was 11 decreased 8.2. Upon arrival to [place] hemoglobin was 8.9 presently 8.0. 2 weeks ago hemoglobin was in the 11- 12 range. He has a history of upper GI bleed in March 2014 secondary to duodenal ulcer with resolution clip placement however 5 days later he re-bled and was transferred to [facility] for embolization. In June 2014 he presented with an acute upper GI bleed melena and underwent EGD evaluation with findings of a clean-based 1.5 cm duodenal bulb ulcer with injection of epinephrine and resolution clip placement. MCV 98. Platelet 98,000. BUN 37. Creatinine 2.4. Iron 74. TIBC 135. Iron saturation 54%. Ferritin 111. Troponin 0.4-0.5. Hospital medications include but not limited to baby aspirin and Protonix 40 mg daily. Review of Systems Constitutional: Denies fever, chills, sweats, weight gain, or loss. HEENT: Negative for migraines, blurred vision or loss, earaches, drainage, tinnitus, oral mucosal lesions, dysphagia, or odynophagia. Cardiac: History of ice CM. CAD. CABG. ND. Atrial fibrillation. Negative for chest pain, arrhythmias, or palpitation. Respiratory: Negative for shortness of breath, hemoptysis, cough, or sputum production. Gastrointestinal: See HPI for pertinent findings. Genitourinary: Negative for hematuria, urgency, frequency, polyuria, dysuria, or penile discharge. Musculoskeletal: Negative for muscle aches, swelling, arthritis, and arthralgias. Neurologic: Negative for stroke or TIA. Endocrine: Negative for thyroid problems. Skin: Negative for rash or itching. Psychiatric: Negative history for depression and anxiety Past Medical History Past Medical History: Atrial Fibrillation, Coronary Artery Disease (CAD), Cancer , Chest Pain / Angina, Heart Failure, COPD, CVA/TIA, GERD/Reflux, GI Bleed, Hypertension, Myocardial Infarction (ND), Prostate Disorder Additional Past Medical History / Comment(s): INDWELLING CATHERER SINCE 11/25/13 - PROSTATE IS ENLARGED & STATES WILL BE NEEDING SURGERY PT GETS CHEST PAIN OFF & ON AFTER EXERTION MULTIPLE MYELOMA DX 01-16-14 HX TIA'S, ANEMIA, HX OF BLEEDING ULCER X2 Last Myocardial Infarction Date:: 2014 History of Any Multi-Drug Resistant Organisms: None Reported Past Surgical History: Appendectomy, Cholecystectomy, Coronary Bypass/CABG, Heart Catheterization With Stent, Hernia Repair, Joint Replacement Additional Past Surgical History / Comment(s): REPAIR OF ULCER X2. CABG X3 [facility]OM[facility]. HIP REPLACEMENTS 2005 & 2008WIFE STATES PT HAS 6 OR 7 STENTS. HERNIA - ING X 2. TOM[facility]S CATARACT. Past Anesthesia/Blood Transfusion Reactions: No Reported Reaction Date of Last Stent Placement:: UNKNOWN Past Psychological History: No Psychological Hx Reported Smoking Status: Never smoker Past Alcohol Use History: None Reported Past Drug Use History: None Reported - Past Family History Father Family Medical History: Myocardial Infarction (ND) Additional Family Medical History / Comment(s): HEAVY SMOKER Mother Family Medical History: No Reported History Medications and Allergies Home Medications Medication Instructions Recorded Confirmed Type Metoprolol Tartrate [Lopressor] 50 mg PO BID 12/01/13 11/08/17 History Nitroglycerin Sl Tabs [Nitrostat] 0.4 mg SUBLINGUAL Q5M PRN 07/13/14 11/08/17 History Furosemide [Lasix] 20 mg PO Q48H 08/03/14 11/08/17 History Potassium Chloride [Klor-Con 10] 10 meq PO DAILY 08/03/14 11/08/17 History Aspirin [Adult Low Dose Aspirin EC] 81 mg PO DAILY 10/26/16 11/08/17 History Atorvastatin [Lipitor] 40 mg PO DAILY 10/26/16 11/08/17 History Cetirizine HCl 10 mg PO DAILY 10/26/16 11/08/17 History Isosorbide Mononitrate ER [Imdur] 60 mg PO BID 10/26/16 11/08/17 History Magnesium Hydroxide [Milk of 2,400 mg PO DAILY PRN 10/26/16 11/08/17 History Magnesia] Melatonin 2 mg PO HS 10/26/16 11/08/17 History Pantoprazole Sodium [Protonix] 40 mg PO DAILY 10/26/16 11/08/17 History Ticagrelor [Brilinta] 60 mg PO BID 10/26/16 11/08/17 History Sodium Bicarbonate Tab 650 mg PO DAILY tab 10/29/16 11/08/17 Rx Bisacodyl 10 mg PO DAILY PRN 11/08/17 11/08/17 History DULoxetine HCL [Cymbalta] 60 mg PO DAILY 11/08/17 11/08/17 History Gabapentin [Neurontin] 600 mg PO BID 11/08/17 11/08/17 History Gentamicin Sulfate [Gentamicin 1 applic TOPICAL DAILY 11/08/17 11/08/17 History Sulfate 0.1%] HYDROcodone/APAP 5-325MG [Lee 1 tab PO Q6HR PRN 11/08/17 11/08/17 History 5-325] Sennosides-Docusate Sodium 1 tab PO DAILY 11/08/17 11/08/17 History [Senokot-S] Allergies Allergy/AdvReac Type Severity Reaction Status Date / Time cephalexin Allergy Unknown Verified 11/08/17 21:56 Latex, Natural Rubber Allergy Unknown Verified 12/28/14 08:46 Penicillins Allergy Rash/Hives Verified 11/08/17 21:56 & blisters Sulfa (Sulfonamide Allergy Unknown Verified 11/08/17 21:56 Antibiotics) Physical Exam Vitals: Vital Signs Temp Pulse Resp BP Pulse Ox 11/10/17 04:00 94 F L 62 18 114/57 94 L 11/10/17 00:00 96.1 F L 66 17 104/56 96 11/09/17 20:00 98.5 F 75 18 116/64 97 11/09/17 16:00 98.1 F 72 18 110/57 93 L Intake and Output 11/09/17 11/10/17 11/10/17 22:59 06:59 14:59 Intake Total 60 200 120 Output Total 700 400 Balance -640 -200 120 Intake: Intake, IV Titration 200 Amount Dextrose 5% in Water 1, 200 000 ml @ 50 mls/hr IV . Q20H [facility] Rx#:[id number] Oral 60 120 Output: Urine 700 400 Other: Voiding Method Toilet Toilet Urinal Indwelling Catheter Indwelling Catheter # Voids 1 Weight 103.5 kg 0 g General appearance: The patient is alert, when aroused but drifts off to sleep. [place]. Appears in no acute distress. HET: Head is normocephalic and atraumatic. Pupils are equal and reactive. Oropharynx is clear without lesions. Neck: Supple without lymphadenopathy. Trachea midline. Heart: S1 S2. Regular rate and rhythm. Lungs: No crackles or wheezes are heard. Abdomen: Soft, nontender, nondistended with bowel sounds. No peritoneal signs. No palpable organomegaly or masses. Extremities: Normal skin color and turgor. No cyanosis, rash, ulceration, clubbing, or edema. Radial and pedal pulses are 2/4 bilaterally. Reid with clear urine. Neurological: No focal deficits. Strength and sensation are grossly intact. Results CBC & Chem 7: 11/11/17 05:23 11/11/17 05:23 Labs: Abnormal Lab Results - Last 24 Hours (Table) 11/09/17 11/09/17 11/09/17 Range/Units 05:15 05:15 05:15 WBC (3.8-10.6) k/uL RBC (4.30-5.90) m/uL Hgb (13.0-17.5) gm/dL Hct (39.0-53.0) % RDW (11.5-15.5) % Plt Count (150-450) k/uL Lymphocytes # (1.0-4.8) k/uL BUN (9-20) mg/dL Creatinine (0.66-1.25) mg/dL Glucose (74-99) mg/dL TIBC 135 L (228-460) ug/dL Iron Saturation 54.81 H (15.00-50.00) Total Protein (PEP) 10.3 H (6.2-8.2) g/dL IgG 249.0 L (700.0-1600.0) mg/dL IgA 6540.0 H (60.0-350.0) mg/dL IgM <16.9 L (40.0-280.0) mg/dL Free [place] LC, Quant 7.62 H (0.33-1.94) mg/dL 11/10/17 11/10/17 Range/Units 05:40 05:40 WBC 2.6 L (3.8-10.6) k/uL RBC 2.50 L (4.30-5.90) m/uL Hgb 8.0 L (13.0-17.5) gm/dL Hct 24.6 L (39.0-53.0) % RDW 18.9 H (11.5-15.5) % Plt Count 98 L (150-450) k/uL Lymphocytes # 0.6 L (1.0-4.8) k/uL BUN 37 H (9-20) mg/dL Creatinine 2.40 H (0.66-1.25) mg/dL Glucose 105 H (74-99) mg/dL TIBC (228-460) ug/dL Iron Saturation (15.00-50.00) Total Protein (PEP) (6.2-8.2) g/dL IgG (700.0-1600.0) mg/dL IgA (60.0-350.0) mg/dL IgM (40.0-280.0) mg/dL Free [place] LC, Quant (0.33-1.94) mg/dL Microbiology - Last 24 Hours (Table) 11/08/17 22:44 Urine Culture - Preliminary Urine,Catheterized Gram Neg Bacilli 11/09/17 05:15 Blood Culture - Preliminary Blood No Growth after 24 hours Assessment and Plan (1) Anemia Narrative/Plan: 87-year-old gentleman with a history of multiple comorbidities including multiple myeloma atrial fibrillation CAD admitted from [place] with reports of anemia, mental status changes acute renal failure dehydration UTI possible aspiration pneumonia and mild elevation of troponin. Acute on chronic anemia suspect component of acute blood loss with history of bleeding duodenal ulcer disease 2013. Possible recurrent peptic ulcer disease with drop in hemoglobin over the last few weeks without overt GI bleeding at this time. Current Visit: Yes Status: Acute Code(s): D64.9 - ANEMIA, UNSPECIFIED SNOMED Code(s): 409569172 Plan: 1. Protonix 40 mg twice daily. CBC monitoring [address] and in am. Notify Dr. Meeks with 1800 results. 2. Light diet as tolerated. Inpatient endoscopic exam discussed tentative 11/12/2017 possibly sooner if clinically indicated. We'll follow closely with you. Thank you for this kind referral and the opportunity to participate in the care of your patient. This consultation was discussed with Dr. Meeks. The impression and plan of care have been directed as dictated.
--- NOTE | 2017-11-10 14:54 | US ---
EXAMINATION TYPE: US kidneys/renal and bladder DATE OF EXAM: 11/10/2017 COMPARISON: none CLINICAL HISTORY: david; patient stated has had suprapubic catheter x 3 years; hematuria EXAM MEASUREMENTS: Right Kidney: 8.2 x 3.9 x 4.6 cm Left Kidney: 10.0 x 4.3 x 4.4 cm Post Void Residual Volume: NA Exam is technically limited due to patient in position for scanning at bedside. Right Kidney: smaller than left kidney; parapelvic cyst = 1.5 x 1.5 x 1.8cm; crescent shaped hypoecho ic area adjacent to renal periphery "sonographic sweat sign" suggests renal failure Left Kidney: multiple renal cysts throughout with largest simple cyst = 3.4 x 3.2 x 3.0cm mid lateral pole; superior cortical mass may be complex cyst as internal posterior wall echoes are noted ; mid p ole cortical mass = 1.5 x 1.7 x 0.8cm and isoechoic to renal cortex is not a simple cyst; lower melecio x round hypoechoic mass with posterior enhancement may be complex cyst =1.8 x 1.5 x 1.4cm. Bladder: pt has suprapubic catheter and therefore the bladder is nondiagnostic. No hydronephrosis or nephrolithiasis. IMPRESSION: Bilateral renal masses with complex appearing lesions on the left which do not meet the criteria of a simple cyst. Recommend MRI. Correlate for chronic medical renal disease.
--- NOTE | 2017-11-10 15:31 | P.PN ---
Subjective Progress Note Date: 11/10/17 Progress note being dictated for Dr. Hodges. Interval history: This 77-year-old gentleman admitted with chest pain, possible acute non-STEMI, change in mental status, possible acute UTI, acute on chronic renal failure in a patient with multiple myeloma and multiple other medical issues. Maintained on broad-spectrum IV antibiotics. Echo reporting mild to moderately impaired LV function, EF 40-45%, mild to moderate aortic regurgitation, aortic root dilated, 3.9 cm. maintained on IV fluid hydration .evaluated by cardiology, Brilenta discontinued, with no further cardiac workup recommended at this time. Evaluated by oncology/hematology, nephrology, infectious disease with recommendations noted. Sodium 147, maintained on D5W. 10/31/17 maintained on D5W, sodium WNL, 144. IV fluids changed to half-normal saline. Hemoglobin decreased to 8.0. No bleeding reported. Maintained on Rocephin and Levaquin. Poor diet intake, consuming 25%. Chest x-ray non acute. Afebrile. Objective - Vital Signs Vital signs: Vital Signs Temp 94 F L 11/10/17 04:00 Pulse 62 11/10/17 04:00 Resp 18 11/10/17 04:00 BP 114/57 11/10/17 04:00 Pulse Ox 94 L 11/10/17 04:00 Intake & Output 11/09/17 11/10/17 11/10/17 18:59 06:59 18:59 Intake Total 410 200 120 Output Total 700 400 Balance -290 -200 120 Weight 0 g Intake: Intake, IV Titration 150 200 Amount Dextrose 5% in Water 1, 200 000 ml @ 50 mls/hr IV . Q20H [facility] Rx#:[id number] Levofloxacin 750Mg-D5w 150 Pmx 750 mg In Dextrose/ Water 1 150ml.bag @ 100 mls/hr IVPB Q48H [facility] Rx#: [id number] Oral 260 120 Output: Urine 700 400 Other: Voiding Method Indwelling Catheter Toilet Indwelling Catheter # Voids 1 - Exam PHYSICAL EXAM: VITAL SIGNS: [As above] GENERAL: Sitting up in bed, no acute distress HEENT: Conjunctivae normal. eyes normal. Oral mucosa moist NECK: No JVD. No thyroid enlargement. No LNs CARDIOVASCULAR: S1, S2 muffled. No murmur RESPIRATION: Breath sounds diminished in the bases. Scattered rhonchi, no crackles. No wheezes. ABDOMEN: Soft, nontender . No guarding. no masses palpable. Positive Bowel sounds. LEGS: No edema. no swelling PSYCHIATRY: Alert and oriented -3, mood and affect normal. NERVOUS SYSTEM: Cranial N 2-12 grossly normal. Moves all 4 limbs. Diffuse weakness No focal deficits. No sensory deficit. Skin: no ulcer no rash - Labs CBC & Chem 7: 11/10/17 05:40 11/10/17 05:40 Labs: Abnormal Lab Results - Last 24 Hours (Table) 11/09/17 11/09/17 11/09/17 Range/Units 05:15 05:15 05:15 WBC (3.8-10.6) k/uL RBC (4.30-5.90) m/uL Hgb (13.0-17.5) gm/dL Hct (39.0-53.0) % RDW (11.5-15.5) % Plt Count (150-450) k/uL Lymphocytes # (1.0-4.8) k/uL BUN (9-20) mg/dL Creatinine (0.66-1.25) mg/dL Glucose (74-99) mg/dL TIBC 135 L (228-460) ug/dL Iron Saturation 54.81 H (15.00-50.00) Total Protein (PEP) 10.3 H (6.2-8.2) g/dL IgG 249.0 L (700.0-1600.0) mg/dL IgA 6540.0 H (60.0-350.0) mg/dL IgM <16.9 L (40.0-280.0) mg/dL Free [facility] LC, Quant 7.62 H (0.33-1.94) mg/dL 11/10/17 11/10/17 Range/Units 05:40 05:40 WBC 2.6 L (3.8-10.6) k/uL RBC 2.50 L (4.30-5.90) m/uL Hgb 8.0 L (13.0-17.5) gm/dL Hct 24.6 L (39.0-53.0) % RDW 18.9 H (11.5-15.5) % Plt Count 98 L (150-450) k/uL Lymphocytes # 0.6 L (1.0-4.8) k/uL BUN 37 H (9-20) mg/dL Creatinine 2.40 H (0.66-1.25) mg/dL Glucose 105 H (74-99) mg/dL TIBC (228-460) ug/dL Iron Saturation (15.00-50.00) Total Protein (PEP) (6.2-8.2) g/dL IgG (700.0-1600.0) mg/dL IgA (60.0-350.0) mg/dL IgM (40.0-280.0) mg/dL Free [facility] LC, Quant (0.33-1.94) mg/dL Microbiology - Last 24 Hours (Table) 11/08/17 22:44 Urine Culture - Preliminary Urine,Catheterized Gram Neg Bacilli 11/09/17 05:15 Blood Culture - Preliminary Blood No Growth after 24 hours Assessment and Plan Assessment: 1. Change in mental status, possible acute [facility] bacilli with sepsis secondary to chronic indwelling Reid catheter, present on admission. 2. Chest pain, with a possible STEMI with Troponin 0.566 3. Acute renal failure secondary to ATN 4. Chronic congestive heart failure, systolic dysfunction, EF 35-40% 5. History of multiple myeloma 6. CAD history of [place], CABG, stent 7. No code, no CPR, no intubation 8. Hypernatremia secondary to dehydration, diuretics, improved 9. Acute on chronic Anemia, in a patient with history of bleeding duodenal ulcer disease, embolization at [facility], workup in progress Plan: Continue on current medication regime ,PPI,monitoring and symptomatic treatment. Close monitoring of CBC with repeat this afternoon. GI consulted. Antibiotics as per ID. Gentle IV fluid hydration with half-normal saline.Diuretics remain on hold. Final Urine culture results pending. Antibiotics as per infectious disease. Close monitoring of electrolytes, renal function, CBC with repeat labs ordered for a.m. further recommendations to follow. The impression and plan of care has been dictated as directed. : I performed a history and examination of this patient, discussed the same with the dictator. I agree with the dictator's note ,documented as a scribe. Any additional findings or plans will be noted.
--- NOTE | 2017-11-10 16:35 | P.PN ---
Subjective Progress Note Date: 11/10/17 This is a pleasant 87-year-old gentleman, he is not able to give a detailed history, most of this was obtained from the medical record, there is no family at bedside. Patient has known history of coronary artery disease and prior bypass surgery, also history of PCI, hypertension, hyperlipidemia, chronic kidney disease, multiple myeloma, prior CVA, GERD, COPD, prior GI bleed , prior E. coli and a UTI. Patient was brought to the hospital because of confusion, was found to have multiple medical issues including UTI, and was also noted to have a drop in hemoglobin. Troponins were obtained which came back to be abnormal, for this reason a cardiology consultation was requested. Patient is confused as to why he is here, he denies any chest discomfort, breathing overall is stable. EKG was performed which shows a normal sinus rhythm with right bundle branch block pattern and nonspecific ST-T wave changes. An echocardiogram with Doppler study was performed which revealed an ejection fraction of 40-45%. Basal posterior and inferior wall hypokinesia noted. Mild to moderate aortic regurg noted. Patient did have an echocardiogram with Doppler study performed earlier this month which showed an ejection fraction of 35-40%. Blood pressure 122/60, heart rate in the 80s. White blood cell count 2.9, hemoglobin 8.9, platelet count 100. Patient's hemoglobin on this most recent admission, one week ago, was 12.4. Sodium 147, potassium 4.5, BUN 34, creatinine 2.0. Creatinine 1 week ago 1.0. Troponins 0.40, 0.45, 0.56. At the time of my examination this morning, patient is pleasantly confused, denies any discomfort in the chest, denies any difficulty in breathing, no dizziness or lightheadedness. 11/10/2017 Patient seen and examined this morning, continues to be fairly confused, no complaints of any chest discomfort breathing is stable, Echo revealed an ejection fraction of 40-45%. The pressure 92/60 with a heart rate in the 60s, 94% on 3 L. BUN 37, creatinine 2.4 today, sodium 144, potassium 4.2. Objective - Vital Signs Vital signs: Vital Signs Temp 97 F L 11/10/17 12:00 Pulse 67 11/10/17 12:00 Resp 18 11/10/17 12:00 BP 91/58 11/10/17 12:00 Pulse Ox 94 L 11/10/17 12:00 Intake & Output 11/09/17 11/10/17 11/10/17 18:59 06:59 18:59 Intake Total 410 200 120 Output Total 700 400 Balance -290 -200 120 Weight 0 g Intake: Intake, IV Titration 150 200 Amount Dextrose 5% in Water 1, 200 000 ml @ 50 mls/hr IV . Q20H [facility] Rx#:[id number] Levofloxacin 750Mg-D5w 150 Pmx 750 mg In Dextrose/ Water 1 150ml.bag @ 100 mls/hr IVPB Q48H [facility] Rx#: [id number] Oral 260 120 Output: Urine 700 400 Other: Voiding Method Indwelling Catheter Toilet Indwelling Catheter Indwelling Catheter # Voids 1 - Exam PHYSICAL EXAMINATION: HEENT: [Head is atraumatic, normocephalic. Pupils equal, round. Neck is supple. There is no elevated jugular venous pressure.] HEART EXAMINATION: Heart S1 and S2 with systolic murmur is heard. CHEST EXAMINATION:[ Lungs are clear to auscultation and precussion. No chest wall tenderness is noted on palpation or with deep breathing.] ABDOMEN: [ Soft, nontender. Bowel sounds are heard. No organomegaly noted]. EXTREMITIES:[ 2+ peripheral pulses with no evidence of peripheral edema and no calf tenderness noted]. NEUROLOGIC [patient is awake, alert, confused - Labs CBC & Chem 7: 11/10/17 05:40 11/10/17 05:40 Labs: Abnormal Lab Results - Last 24 Hours (Table) 11/09/17 11/09/17 11/09/17 Range/Units 05:15 05:15 05:15 WBC (3.8-10.6) k/uL RBC (4.30-5.90) m/uL Hgb (13.0-17.5) gm/dL Hct (39.0-53.0) % RDW (11.5-15.5) % Plt Count (150-450) k/uL Lymphocytes # (1.0-4.8) k/uL BUN (9-20) mg/dL Creatinine (0.66-1.25) mg/dL Glucose (74-99) mg/dL TIBC 135 L (228-460) ug/dL Iron Saturation 54.81 H (15.00-50.00) Total Protein (PEP) 10.3 H (6.2-8.2) g/dL Albumin (PEP) 2.97 L (3.80-4.90) g/dL Gamma Globulins 5.73 H (0.70-1.50) g/dL IgG 249.0 L (700.0-1600.0) mg/dL IgA 6540.0 H (60.0-350.0) mg/dL IgM <16.9 L (40.0-280.0) mg/dL Free [place] LC, Quant 7.62 H (0.33-1.94) mg/dL 11/10/17 11/10/17 Range/Units 05:40 05:40 WBC 2.6 L (3.8-10.6) k/uL RBC 2.50 L (4.30-5.90) m/uL Hgb 8.0 L (13.0-17.5) gm/dL Hct 24.6 L (39.0-53.0) % RDW 18.9 H (11.5-15.5) % Plt Count 98 L (150-450) k/uL Lymphocytes # 0.6 L (1.0-4.8) k/uL BUN 37 H (9-20) mg/dL Creatinine 2.40 H (0.66-1.25) mg/dL Glucose 105 H (74-99) mg/dL TIBC (228-460) ug/dL Iron Saturation (15.00-50.00) Total Protein (PEP) (6.2-8.2) g/dL Albumin (PEP) (3.80-4.90) g/dL Gamma Globulins (0.70-1.50) g/dL IgG (700.0-1600.0) mg/dL IgA (60.0-350.0) mg/dL IgM (40.0-280.0) mg/dL Free [place] LC, Quant (0.33-1.94) mg/dL Microbiology - Last 24 Hours (Table) 11/08/17 22:44 Urine Culture - Preliminary Urine,Catheterized Gram Neg Bacilli 11/09/17 05:15 Blood Culture - Preliminary Blood No Growth after 24 hours Assessment and Plan Plan: Assessment and plan #1 mental status changes #2 known history of coronary artery disease with prior bypass surgery and stent placements, apparently the stent placements have been quite some time ago according to Dr. TANIA Goodman's consultation one year ago, he still taking Brilinta which we could discontinue. #3 acute on chronic kidney disease #4 COPD #5 prior CVA #6 hypertension #7 history of multiple myeloma #8 abnormal troponins, could be secondary to abnormal renal function. Cannot completely rule out non-Q-wave myocardial infarction, we will maximize patient' s medical therapy. #9 anemia Plan From cardiology's perspective, we will recommend to continue the patient on his current medications. We will follow him along with you now on an as-needed basis only, please don't hesitate to call with any questions. DNP note has been reviewed, I agree with a documented findings and plan of care. Patient was seen and examined.
[2017-11-10 18:44] LABS: Anisocytosis Slight; HCT 24.1 % (39.0-53.0); HGB 7.6 gm/dL (13.0-17.5); MCH 30.8 pg (25.0-35.0); MCHC 31.7 g/dL (31.0-37.0); MCV 97.3 fL (80.0-100.0); Macrocytosis Slight; Mean Platelet Volume 8.2; RBC 2.48 m/uL (4.30-5.90); RDW 18.9 % (11.5-15.5); WBC 3.5 k/uL (3.8-10.6)
[2017-11-10 18:45] LABS: Platelet Count 91 k/uL (150-450)
[2017-11-10 19:37] LABS: Band Neutrophils % 1 %; Eosinophils # (M) 0.14 k/uL (0-0.7); Lymphocytes # (M) 0.88 k/uL (1.0-4.8); Metamyelocytes # (M) 0.14 k/uL (0); Metamyelocytes % 4 %; Monocytes # (M) 0.21 k/uL (0-1.0); Myelocytes # (M) 0.07 k/uL (0); Myelocytes % 2 %; Neutrophils % (M) 58 %; Nucleated Red Blood Cells 0 /100 WBC (0-0); Polychromasia Present; Total Cells Counted 100
[2017-11-10 19:38] LABS: Rouleaux Present
[2017-11-10] MEDS: SODIUM CHLORIDE 0.45% 1,000 ML IV SCH (21:38)
[2017-11-10] MEDS: MELATONIN 1 MG TAB PO SCH (21:40)
[2017-11-11 06:16] LABS: Calcium 9.3 mg/dL (8.4-10.2); Magnesium 1.8 mg/dL (1.6-2.3); Potassium 4.5 mmol/L (3.5-5.1)
[2017-11-11 06:17] LABS: Anisocytosis Slight; HGB 7.2 gm/dL (13.0-17.5); Hypochromasia Moderate; MCH 30.9 pg (25.0-35.0); MCHC 31.3 g/dL (31.0-37.0); MCV 98.5 fL (80.0-100.0); Macrocytosis Slight; Mean Platelet Volume 8.9; Platelet Count 100 k/uL (150-450); RBC 2.33 m/uL (4.30-5.90); RDW 18.8 % (11.5-15.5); WBC 3.5 k/uL (3.8-10.6)
[2017-11-11] MEDS: SODIUM CHLORIDE 0.45% 1,000 ML IV SCH ×2 (06:34→18:54)
[2017-11-11 07:04] LABS: Band Neutrophils % 5 %; Eosinophils # (M) 0.11 k/uL (0-0.7); Lymphocytes # (M) 0.91 k/uL (1.0-4.8); Monocytes # (M) 0.11 k/uL (0-1.0); Neutrophils % (M) 63 %; Nucleated Red Blood Cells 0 /100 WBC (0-0); Total Cells Counted 100
[2017-11-11 07:05] LABS: Rouleaux Present
[2017-11-11] MEDS ORDERED: LEVOFLOXACIN 750MG-D5W PMX 750 MG in DEXTROSE/WATER 1 150ML.BAG IVPB SCH (08:00)
--- NOTE | 2017-11-11 08:26 | CDI ---
Last Revision, June 2017 Documentation Clarification Form Date: 11/11/17 From: Janet Nicolas RN Admit Date: 11/08/2017 9:14:00 PM Patient Name: Juan Manuel Casanova Visit Number: [id number] ATTENTION: The Clinical Documentation Specialists (CDI) and [facility] Coding Staff appreciate your assistance in clarifying documentation. Please respond to the clarification below the line at the bottom and electronically sign. The CDI & [facility] Coding staff will review the response and follow-up if needed. Please note: Queries are made part of the Legal Health Record. If you have any questions, please contact the author of this message via ITS. Dr Maritza Hodges, Patient present with a change in mental status, chest pain with acute non stemi , possible UTI with sepsis and possible aspiration pneumonia. History/Risk factors: A FIB,CHF, COPD, CVA/TIA, GERD, GI bleed, NC, acute renal failure, UTI with indwelling catheter, prostate disorder Clinical Indicators: Labs on admission: WBC 2.9, RBC 2.90, HGB 8.9, HCT 28.8SOD 147, BUN 34, CR 2.00, ALT 6, TROP 0.403 - 0.456, TOT PRO 11.7, ALB 3.4 Vitals on admission: T 97.5, P 70, R 17, 121/58, 97% 2L Treatment: Consults: Dr. Rhoades, Nephrology, Cardiology, Medical IV antibiotics: Levofloxacin, Ceftriaxone, Gentamicin In your professional opinion, can you please clarify the specific type of encephalopathy, if known? Metabolic Encephalopathy Septic Encephalopathy Indicate whether acute, sub-acute or chronic? Other, please specify Unable to determine Please continue to document in your progress notes, under the line below and/ or in the discharge summary in order to capture severity of illness and risk of mortality. Include clinical findings that support your diagnosis. Metabolic Encephalopathy MTDD
[2017-11-11] MEDS: ATORVASTATIN 40 MG TAB PO SCH (08:30)
[2017-11-11] MEDS: ASPIRIN 81 MG PO SCH (08:30)
[2017-11-11] MEDS: GABAPENTIN 300 MG CAP PO SCH ×3 (08:31→20:41)
[2017-11-11] MEDS: ISOSORBIDE MONONITRATE ER 60 MG TAB.ER.24H PO SCH ×2 (08:31→20:41)
[2017-11-11] MEDS: METOPROLOL TARTRATE 50 MG TAB PO SCH ×2 (08:31→20:41)
[2017-11-11] MEDS: LORATADINE 10 MG TAB PO SCH (08:31)
[2017-11-11] MEDS: DULoxetine HCL 60 MG CAPSULE.DR PO SCH (08:31)
[2017-11-11] MEDS: POTASSIUM CHLORIDE ER 10 MEQ TAB.ER.PRT PO SCH (08:32)
[2017-11-11] MEDS: SENNOSIDES-DOCUSATE SODIUM 1 EACH TAB PO SCH ×2 (08:32→12:42)
[2017-11-11] MEDS: PANTOPRAZOLE 40 MG TABLET PO SCH (08:32)
[2017-11-11] MEDS: SODIUM BICARBONATE TAB 650 MG TAB PO SCH (08:32)
[2017-11-11] MEDS: cefTRIAXone IN SWFI 1,000 MG/10 ML SYRINGE IVP SCH (08:35)
--- NOTE | 2017-11-11 09:45 | P.PN ---
Subjective Patient is seen in follow-up for acute kidney injury on chronic kidney disease. Patient's baseline creatinine is 1 and peaked at 2.4 this admission - 2.2 today. He is currently resting in bed. He does of systolic CHF with ejection fraction of 40%. Patient has a suprapubic Reid catheter for underlying urinary retention which was changed prior to this admission. He has history of recurrent UTIs. Urine culture is positive for gram-negative bacilli. Oral intake is poor. He is nonoliguric. Denies chest pain or shortness of breath. Vital signs are stable. General: The patient appeared well nourished and normally developed. HEENT: Head exam is unremarkable. Neck is without jugular venous distension. LUNGS: Lungs are clear to auscultation and percussion. Breath sounds decreased. HEART: Rate and Rhythm are regular. First and second heart sounds normal. No murmurs, rubs or gallops. ABDOMEN: Abdominal exam reveals normal bowel sounds. Non-tender and non- distended. No evidence of peritonitis. EXTREMITITES: No clubbing, cyanosis, or edema. Objective - Vital Signs Vital signs: Vital Signs Temp 96.4 F L 11/11/17 04:00 Pulse 60 11/11/17 04:00 Resp 18 11/11/17 04:00 BP 98/52 11/11/17 00:00 Pulse Ox 96 11/11/17 04:00 Intake & Output 11/10/17 11/11/17 11/11/17 18:59 06:59 18:59 Intake Total 120 1250 Output Total 600 Balance 120 650 Weight 107.5 kg Intake: IV 400 Invasive Line 3 400 Intake, IV Titration 750 Amount Sodium Chloride 0.45% 1, 750 000 ml @ 75 mls/hr IV . [id number] [facility] Rx#:[id number] Oral 120 100 Output: Urine 600 Other: Voiding Method Indwelling Catheter Indwelling Catheter # Voids 1 # Bowel Movements 0 - Labs CBC & Chem 7: 11/11/17 05:23 11/11/17 05:23 Labs: Abnormal Lab Results - Last 24 Hours (Table) 11/09/17 11/09/17 11/10/17 Range/Units 05:15 05:15 18:04 WBC 3.5 L (3.8-10.6) k/uL RBC 2.48 L (4.30-5.90) m/uL Hgb 7.6 L (13.0-17.5) gm/dL Hct 24.1 L (39.0-53.0) % RDW 18.9 H (11.5-15.5) % Plt Count 91 L (150-450) k/uL Lymphocytes # (Manual) 0.88 L (1.0-4.8) k/uL Metamyelocytes # (Man) 0.14 H (0) k/uL Myelocytes # (Manual) 0.07 H (0) k/uL BUN (9-20) mg/dL Creatinine (0.66-1.25) mg/dL Albumin (PEP) 2.97 L (3.80-4.90) g/dL Gamma Globulins 5.73 H (0.70-1.50) g/dL IgG 249.0 L (700.0-1600.0) mg/dL IgA 6540.0 H (60.0-350.0) mg/dL IgM <16.9 L (40.0-280.0) mg/dL Free [facility] LC, Quant 7.62 H (0.33-1.94) mg/dL 11/11/17 11/11/17 Range/Units 05:23 05:23 WBC 3.5 L (3.8-10.6) k/uL RBC 2.33 L (4.30-5.90) m/uL Hgb 7.2 L (13.0-17.5) gm/dL Hct 23.0 L (39.0-53.0) % RDW 18.8 H (11.5-15.5) % Plt Count 100 L (150-450) k/uL Lymphocytes # (Manual) 0.91 L (1.0-4.8) k/uL Metamyelocytes # (Man) (0) k/uL Myelocytes # (Manual) (0) k/uL BUN 34 H (9-20) mg/dL Creatinine 2.20 H (0.66-1.25) mg/dL Albumin (PEP) (3.80-4.90) g/dL Gamma Globulins (0.70-1.50) g/dL IgG (700.0-1600.0) mg/dL IgA (60.0-350.0) mg/dL IgM (40.0-280.0) mg/dL Free [facility] LC, Quant (0.33-1.94) mg/dL Microbiology - Last 24 Hours (Table) 11/09/17 05:15 Blood Culture - Preliminary Blood No Growth after 48 hours 11/08/17 22:44 Urine Culture - Preliminary Urine,Catheterized Gram Neg Bacilli Assessment and Plan Plan: Assessment: #1. Nonoliguric acute kidney injury secondary to ATN. Creatinine peaked at 2.4 this admission and is 2.2 today. Baseline creatinine is near 1. No proteinuria noted on urinalysis. No hydronephrosis noted on renal ultrasound. #2. Systolic CHF with ejection fraction of 40%. Compensated. #3. UTI. Urine culture positive for gram-negative bacilli. #4. History of multiple UTIs. Patient has a suprapubic catheter. #5. Hypernatremia secondary to lack of oral water intake and further free water losses from diuretics. Improved. #6. Metabolic acidosis secondary to acute kidney injury maintained on oral sodium bicarbonate. #7. Anemia. Iron replete. No active bleeding noted. GI following. Potential endoscopy on Wednesday. #8. History of multiple myeloma in remission. Oncology following. #9. Bilateral complex renal masses. Await further oncology recommendations. Plan: Hold diuretics. Continue half-normal saline to be run at 75 mL an hour. Follow-up cultures. Antibiotics per infectious disease recommendations. Encouraged oral intake. Repeat electrolytes in the morning.
--- NOTE | 2017-11-11 10:53 | P.PN ---
Subjective Progress Note Date: 11/11/17 Principal diagnosis: Mental status changes anemia UTI renal failure More alert today. Few lower blood pressures over the last 24 hours systolic low 90s. Denies chest pain or shortness of breath. Mild lightheadedness. Denies abdominal pain. Tolerating diet this morning. Afebrile. Hemoglobin decreased to 7.2 this morning. No episodes of hematemesis hematochezia or melena. BUN creatinine minimally improved 34/2.2. Objective - Vital Signs Vital signs: Vital Signs Temp 96.4 F L 11/11/17 04:00 Pulse 60 11/11/17 04:00 Resp 18 11/11/17 04:00 BP 98/52 11/11/17 00:00 Pulse Ox 96 11/11/17 04:00 Intake & Output 11/10/17 11/11/17 11/11/17 18:59 06:59 18:59 Intake Total 120 1250 Output Total 600 450 Balance 120 650 -450 Weight 107.5 kg Intake: IV 400 Invasive Line 3 400 Intake, IV Titration 750 Amount Sodium Chloride 0.45% 1, 750 000 ml @ 75 mls/hr IV . [id number] [facility] Rx#:[id number] Oral 120 100 Output: Urine 600 450 Other: Voiding Method Indwelling Catheter Indwelling Catheter # Voids 1 # Bowel Movements 0 - Exam General appearance: The patient is alert, oriented, in no acute distress. Hard of hearing. HET: Head is normocephalic and atraumatic. Pupils are equal and reactive. Oropharynx is clear without lesions. Neck: Supple without lymphadenopathy. Trachea midline. Heart: S1 S2. Regular rate and rhythm. Lungs: No crackles or wheezes are heard. Abdomen: Soft, nontender, nondistended with bowel sounds. No peritoneal signs. No palpable organomegaly or masses. Extremities: Normal skin color and turgor. No cyanosis, rash, ulceration, clubbing, or edema. Radial and pedal pulses are 2/4 bilaterally. Reid clear shaina urine. Neurological: No focal deficits. Strength and sensation are grossly intact. - Labs CBC & Chem 7: 11/11/17 05:23 11/11/17 05:23 Labs: Abnormal Lab Results - Last 24 Hours (Table) 11/09/17 11/09/17 11/10/17 Range/Units 05:15 05:15 18:04 WBC 3.5 L (3.8-10.6) k/uL RBC 2.48 L (4.30-5.90) m/uL Hgb 7.6 L (13.0-17.5) gm/dL Hct 24.1 L (39.0-53.0) % RDW 18.9 H (11.5-15.5) % Plt Count 91 L (150-450) k/uL Lymphocytes # (Manual) 0.88 L (1.0-4.8) k/uL Metamyelocytes # (Man) 0.14 H (0) k/uL Myelocytes # (Manual) 0.07 H (0) k/uL BUN (9-20) mg/dL Creatinine (0.66-1.25) mg/dL Albumin (PEP) 2.97 L (3.80-4.90) g/dL Gamma Globulins 5.73 H (0.70-1.50) g/dL IgG 249.0 L (700.0-1600.0) mg/dL IgA 6540.0 H (60.0-350.0) mg/dL IgM <16.9 L (40.0-280.0) mg/dL Free [place] LC, Quant 7.62 H (0.33-1.94) mg/dL 11/11/17 11/11/17 Range/Units 05:23 05:23 WBC 3.5 L (3.8-10.6) k/uL RBC 2.33 L (4.30-5.90) m/uL Hgb 7.2 L (13.0-17.5) gm/dL Hct 23.0 L (39.0-53.0) % RDW 18.8 H (11.5-15.5) % Plt Count 100 L (150-450) k/uL Lymphocytes # (Manual) 0.91 L (1.0-4.8) k/uL Metamyelocytes # (Man) (0) k/uL Myelocytes # (Manual) (0) k/uL BUN 34 H (9-20) mg/dL Creatinine 2.20 H (0.66-1.25) mg/dL Albumin (PEP) (3.80-4.90) g/dL Gamma Globulins (0.70-1.50) g/dL IgG (700.0-1600.0) mg/dL IgA (60.0-350.0) mg/dL IgM (40.0-280.0) mg/dL Free [place] LC, Quant (0.33-1.94) mg/dL Microbiology - Last 24 Hours (Table) 11/09/17 05:15 Blood Culture - Preliminary Blood No Growth after 48 hours 11/08/17 22:44 Urine Culture - Preliminary Urine,Catheterized Gram Neg Bacilli Assessment and Plan (1) Anemia Narrative/Plan: 87-year-old gentleman with a history of multiple comorbidities including multiple myeloma atrial fibrillation CAD admitted from [place] with reports of anemia, mental status changes acute renal failure dehydration UTI possible aspiration pneumonia and mild elevation of troponin. Acute on chronic anemia suspect component of acute blood loss with history of bleeding duodenal ulcer disease 2013. Possible recurrent peptic ulcer disease with drop in hemoglobin over the last few weeks without overt GI bleeding at this time. Current Visit: Yes Status: Acute Code(s): D64.9 - ANEMIA, UNSPECIFIED SNOMED Code(s): 692057340 Plan: 1. Case was discussed with fruit pitter Dr. Morales considering continued drop in hemoglobin and a few lower blood pressures in last 24 hours with some mild lightheadedness will transfuse additional unit of blood this morning for symptomatic anemia; this will also help to increase renal perfusion. Presently no active GI bleeding however patient has had no bowel movement since admission. 2. Continue with diet as tolerated. Nothing by mouth after midnight. EGD evaluation tomorrow. 3. CBC at 1800 and in a.m. Continue with Protonix 40 mg by mouth daily. The deli/bakery associate has discussed the risks, benefits and alternative therapies for the above-mentioned procedure and for both sedation/analgesia as well as necessary blood product administration, if indicated, as they pertain to this patient. The patient has indicated understanding and acceptance of the risks and procedures discussed. Assessment and plan of care discussed with Dr. Meeks
[2017-11-11] MEDS ORDERED: ERTAPENEM 1 GM in SODIUM CHLORIDE 0.9% 50 ML IVPB SCH (13:00)
--- NOTE | 2017-11-11 16:56 | P.PN ---
Subjective Progress Note Date: 11/11/17 Principal diagnosis: AMS Pt seen today in follow up, he is pleasantly confused, denies nausea, pain, SOB , need to go to the bathroom, he has ate. He seems to understand most of our discussion Objective - Vital Signs Vital signs: Vital Signs Temp 96.9 F L 11/11/17 16:00 Pulse 59 L 11/11/17 16:00 Resp 18 11/11/17 16:00 BP 114/63 11/11/17 16:00 Pulse Ox 94 L 11/11/17 16:00 Intake & Output 11/10/17 11/11/17 11/11/17 18:59 06:59 18:59 Intake Total 120 1250 1440 Output Total 600 450 Balance 120 650 990 Weight 107.5 kg Intake: IV 400 1200 Invasive Line 3 400 1200 Intake, IV Titration 750 Amount Sodium Chloride 0.45% 1, 750 000 ml @ 75 mls/hr IV . [id number] Rx#:[id number] Oral 120 100 240 Blood Product 0 Rc As-1 Unit 0 [id number] Output: Urine 600 450 Other: Voiding Method Indwelling Catheter Indwelling Catheter Indwelling Catheter # Voids 1 # Bowel Movements 0 - Constitutional General appearance: Present: average body habitus, cooperative, no acute distress - EENT Eyes: Present: anicteric sclerae, EOMI - Respiratory Respiratory: bilateral: CTA - Cardiovascular Heart sounds: normal: S1, S2 - Integumentary Integumentary: Present: pale - Neurologic Neurologic: Present: CNII-XII intact - Musculoskeletal Musculoskeletal: Present: generalized weakness - Psychiatric Psychiatric Comment(s): Alert, mild confusion, pleasant. Responds to direct questions appropriate. - Labs CBC & Chem 7: 11/11/17 05:23 11/11/17 05:23 Labs: Abnormal Lab Results - Last 24 Hours (Table) 11/10/17 11/11/17 11/11/17 Range/Units 18:04 05:23 05:23 WBC 3.5 L 3.5 L (3.8-10.6) k/uL RBC 2.48 L 2.33 L (4.30-5.90) m/uL Hgb 7.6 L 7.2 L (13.0-17.5) gm/dL Hct 24.1 L 23.0 L (39.0-53.0) % RDW 18.9 H 18.8 H (11.5-15.5) % Plt Count 91 L 100 L (150-450) k/uL Lymphocytes # (Manual) 0.88 L 0.91 L (1.0-4.8) k/uL Metamyelocytes # (Man) 0.14 H (0) k/uL Myelocytes # (Manual) 0.07 H (0) k/uL BUN 34 H (9-20) mg/dL Creatinine 2.20 H (0.66-1.25) mg/dL Crossmatch 11/11/17 Range/Units 11:04 WBC (3.8-10.6) k/uL RBC (4.30-5.90) m/uL Hgb (13.0-17.5) gm/dL Hct (39.0-53.0) % RDW (11.5-15.5) % Plt Count (150-450) k/uL Lymphocytes # (Manual) (1.0-4.8) k/uL Metamyelocytes # (Man) (0) k/uL Myelocytes # (Manual) (0) k/uL BUN (9-20) mg/dL Creatinine (0.66-1.25) mg/dL Crossmatch See Detail Microbiology - Last 24 Hours (Table) 11/08/17 22:44 Urine Culture - Final Urine,Catheterized Escherichia coli 11/09/17 05:15 Blood Culture - Preliminary Blood No Growth after 48 hours Assessment and Plan (1) Multiple myeloma in relapse Narrative/Plan: Did discuss lab work up, significant change from last work up in office and that he is in myeloma relapse. Pt knows he has myeloma, that it has been in remission for quite some time and that he has had treatment before. After our discussion he does appear to understand that the myeloma "is back". I told him that Dr. Cutler may want to do a bone marrow, we talked about treatment possibilities and limitations as he lives in [place]. I answered his questions, not sure how much he understood or retained. I spoke with Dr. Cutler and bone marrow is sched for AM at bedside. I did call pt and she gave her an update on pt and tole her concerns for recurrent myeloma and that Doctor wants to do a bone marrow. She is in agreement with bone marrow. She will be contacted after procedure and updated. NPO after midnight-(already ordered as pt is having EGD for iron deficient anemia, Hx ulcers Orders entered for consent Current Visit: Yes Status: Acute Priority: High Code(s): C90.02 - MULTIPLE MYELOMA IN RELAPSE SNOMED Code(s): 233804518 (2) Pancytopenia Narrative/Plan: Secondary to progressive myeloma Pt is being transfused with PRBCs, GI has EGD scheduled No platelets or GCSF at this time. Cont to monitor CBC Current Visit: Yes Status: Acute Priority: High Code(s): D61.818 - OTHER PANCYTOPENIA SNOMED Code(s): 628642191
[2017-11-11 18:04] LABS: Anisocytosis Slight; HCT 27.8 % (39.0-53.0); Hypochromasia Marked; MCH 30.8 pg (25.0-35.0); MCHC 31.1 g/dL (31.0-37.0); Macrocytosis Slight; Mean Platelet Volume 8.3; Platelet Count 113 k/uL (150-450); RBC 2.81 m/uL (4.30-5.90); RDW 18.3 % (11.5-15.5); WBC 3.2 k/uL (3.8-10.6)
[2017-11-11 18:32] LABS: HGB 8.7 gm/dL (13.0-17.5)
[2017-11-11 20:13] LABS: Eosinophils # (M) 0.03 k/uL (0-0.7); Lymphocytes # (M) 0.86 k/uL (1.0-4.8); Neutrophils % (M) 72 %; Nucleated Red Blood Cells 0 /100 WBC (0-0); Total Cells Counted 100
[2017-11-11] MEDS: MELATONIN 1 MG TAB PO SCH (20:41)
--- NOTE | 2017-11-11 23:18 | PN ---
PROGRESS NOTE DATE OF SERVICE: 11/11/2017 REASON FOR FOLLOWUP: ESBL E coli urinary tract infection. INTERVAL HISTORY: The patient is afebrile. He has been breathing comfortably. Denies having any chest pain, shortness of breath or cough. No abdominal pain. No diarrhea. PHYSICAL EXAMINATION: His blood pressure is 114/60, pulse of 76, temperature of 97.9. He is 97% on 3 L nasal cannula. General description is an elderly male lying in bed in no distress. RESPIRATORY SYSTEM: Unlabored breathing. Clear to auscultation anteriorly. HEART: S1, S2. Regular rate and rhythm. ABDOMEN: Soft. No tenderness. EXTREMITIES: No edema of the feet. LABS: Hemoglobin 8.7, white count 3.2 with a BUN of 34, creatinine 2.20. Urine has been finalized as ESBL E coli. Blood culture has been negative. DIAGNOSTIC IMPRESSION AND PLAN: Patient with ESBL Escherichia coli urinary tract infection. Patient does have history of recurrent UTI, urinary retention requiring Reid catheter placement. He did have an ultrasound which shows bilateral renal masses with complex lesion in the left, recommending MRI. Chest x-ray completed yesterday showed no definite positive diagnostic impression. PLAN: Patient with recurrent urinary tract infection, now with initial ESBL E coli. Antibiotic has been adjusted to Invanz 1 gram daily. Will change his current Reid catheter, obtain urine culture from the new Reid. He may benefit from an MRI or a CT of the kidneys. This will be discussed with the admitting team. Continue supportive care. MMODL / IJN: [id number] /
[2017-11-12] MEDS: SODIUM CHLORIDE 0.45% 1,000 ML IV SCH ×3 (01:35→18:00)
--- NOTE | 2017-11-12 07:41 | P.OP ---
Date of Procedure: 11/12/17 Preoperative Diagnosis: Multiple Myeloma Postoperative Diagnosis: Multiple Myeloma Procedure(s) Performed: Bone marrow aspirate & Biopsy Anesthesia: local Surgeon: Jimi Cutler Pathology: other Condition: stable Disposition: no change Indications for Procedure: Pancytopenia Operative Findings: Pending Description of Procedure: Utilizing sterile process, skin over R iliac creast was prepared with Betadine/ alcohol Sterile draping used to obtain sterile operative site Size 11 4in Jamshidi needle used to access bone with ease Total of 15 ml of aspirate & 1 cm core biopsy obtained Total blood loss < 1ml Complications : None The patient tolerated procedure well.
[2017-11-12 07:43] LABS: Calcium 9.3 mg/dL (8.4-10.2); Magnesium 1.7 mg/dL (1.6-2.3)
[2017-11-12 08:10] LABS: Anisocytosis Slight; HCT 24.6 % (39.0-53.0); HGB 8.1 gm/dL (13.0-17.5); MCH 31.6 pg (25.0-35.0); MCV 95.8 fL (80.0-100.0); Macrocytosis Slight; Mean Platelet Volume 9.1; RBC 2.56 m/uL (4.30-5.90); RDW 18.7 % (11.5-15.5); WBC 3.7 k/uL (3.8-10.6)
[2017-11-12 08:43] LABS: Eosinophils # (M) 0.07 k/uL (0-0.7); Lymphocytes # (M) 1.15 k/uL (1.0-4.8); Monocytes # (M) 0.19 k/uL (0-1.0); Neutrophils # (M) 2.29 k/uL (1.3-7.7); Neutrophils % (M) 62 %; Nucleated Red Blood Cells 0 /100 WBC (0-0); Total Cells Counted 100
[2017-11-12 08:44] LABS: Platelet Count 97 k/uL (150-450); Rouleaux Present
--- NOTE | 2017-11-12 09:09 | P.PN ---
Subjective Patient is seen in follow-up for acute kidney injury on chronic kidney disease. Patient's baseline creatinine is 1 and peaked at 2.4 this admission - down to 1.96 today. He is currently resting in bed. He does of systolic CHF with ejection fraction of 40%. Patient has a suprapubic Reid catheter for underlying urinary retention which was changed prior to this admission. He has history of recurrent UTIs. Urine culture is positive for ESBL E.coli. Oral intake is poor. He is nonoliguric. Denies chest pain or shortness of breath. Patient has history of multiple myeloma and underwent a bone marrow biopsy this morning. He also received a unit of blood yesterday. He is also scheduled to undergo endoscopy today by GI. Vital signs are stable. General: The patient appeared well nourished and normally developed. HEENT: Head exam is unremarkable. Neck is without jugular venous distension. LUNGS: Lungs are clear to auscultation and percussion. Breath sounds decreased. HEART: Rate and Rhythm are regular. First and second heart sounds normal. No murmurs, rubs or gallops. ABDOMEN: Abdominal exam reveals normal bowel sounds. Non-tender and non- distended. No evidence of peritonitis. EXTREMITITES: No clubbing, cyanosis, or edema. Objective - Vital Signs Vital signs: Vital Signs Temp 96.7 F L 11/12/17 07:55 Pulse 66 11/12/17 07:55 Resp 18 11/12/17 07:55 BP 134/63 11/12/17 07:55 Pulse Ox 98 11/12/17 07:55 Intake & Output 11/11/17 11/12/17 11/12/17 18:59 06:59 18:59 Intake Total 1750 675 Output Total 450 475 Balance 1300 200 Weight 79 kg Intake: IV 1200 Invasive Line 3 1200 Intake, IV Titration 675 Amount Sodium Chloride 0.45% 1, 675 000 ml @ 75 mls/hr IV . [id number] Rx#:[id number] Oral 240 Blood Product 310 Rc As-1 Unit 310 [id number] Output: Urine 450 475 Other: Voiding Method Indwelling Catheter Indwelling Catheter Indwelling Catheter - Labs CBC & Chem 7: 11/12/17 06:59 11/12/17 06:59 Labs: Abnormal Lab Results - Last 24 Hours (Table) 11/11/17 11/11/17 11/12/17 Range/Units 11:04 17:47 06:59 WBC 3.2 L 3.7 L (3.8-10.6) k/uL RBC 2.81 L 2.56 L (4.30-5.90) m/uL Hgb 8.7 L D 8.1 L (13.0-17.5) gm/dL Hct 27.8 L 24.6 L (39.0-53.0) % RDW 18.3 H 18.7 H (11.5-15.5) % Plt Count 113 L 97 L (150-450) k/uL Lymphocytes # (Manual) 0.86 L (1.0-4.8) k/uL BUN (9-20) mg/dL Creatinine (0.66-1.25) mg/dL Crossmatch See Detail 11/12/17 Range/Units 06:59 WBC (3.8-10.6) k/uL RBC (4.30-5.90) m/uL Hgb (13.0-17.5) gm/dL Hct (39.0-53.0) % RDW (11.5-15.5) % Plt Count (150-450) k/uL Lymphocytes # (Manual) (1.0-4.8) k/uL BUN 26 H (9-20) mg/dL Creatinine 1.96 H (0.66-1.25) mg/dL Crossmatch Microbiology - Last 24 Hours (Table) 11/09/17 05:15 Blood Culture - Preliminary Blood No Growth after 72 hours 11/08/17 22:44 Urine Culture - Final Urine,Catheterized Escherichia coli Assessment and Plan Plan: Assessment: #1. Nonoliguric acute kidney injury secondary to ATN. Creatinine peaked at 2.4 this admission and is 1.96 today. Baseline creatinine is near 1. No proteinuria noted on urinalysis. No hydronephrosis noted on renal ultrasound. #2. Systolic CHF with ejection fraction of 40%. Compensated. #3. ESBL E. coli UTI maintained on antibiotics per infectious disease recommendations. #4. History of multiple UTIs. Patient has a suprapubic catheter. #5. Hypernatremia secondary to lack of oral water intake and further free water losses from diuretics. Improved. #6. Metabolic acidosis secondary to acute kidney injury maintained on oral sodium bicarbonate. #7. Anemia. Iron replete. No active bleeding noted. GI following. Status post 1 unit of blood on November 11. Scheduled for endoscopy today. #8. History of multiple myeloma in remission. Oncology following - status post bone marrow biopsy this morning. #9. Bilateral complex renal masses. Await further oncology recommendations. Plan: Continue to hold diuretics. Continue half-normal saline to be run at 75 mL an hour. Encouraged oral intake. Repeat electrolytes in the morning.
[2017-11-12] MEDS: SENNOSIDES-DOCUSATE SODIUM 1 EACH TAB PO SCH (10:39)
[2017-11-12] MEDS: METOPROLOL TARTRATE 50 MG TAB PO SCH ×2 (10:39→20:34)
[2017-11-12] MEDS: ISOSORBIDE MONONITRATE ER 60 MG TAB.ER.24H PO SCH ×2 (10:39→20:34)
[2017-11-12] MEDS: ATORVASTATIN 40 MG TAB PO SCH (10:40)
[2017-11-12] MEDS: PANTOPRAZOLE 40 MG TABLET PO SCH (10:40)
[2017-11-12] MEDS: LORATADINE 10 MG TAB PO SCH (10:40)
[2017-11-12] MEDS: SODIUM BICARBONATE TAB 650 MG TAB PO SCH (10:40)
[2017-11-12] MEDS: GABAPENTIN 300 MG CAP PO SCH ×2 (10:40→20:34)
[2017-11-12] MEDS: DULoxetine HCL 60 MG CAPSULE.DR PO SCH (10:41)
[2017-11-12] MEDS: POTASSIUM CHLORIDE ER 10 MEQ TAB.ER.PRT PO SCH (10:41)
[2017-11-12] MEDS: ERTAPENEM 0.5 GM in SODIUM CHLORIDE 0.9% 50 ML IVPB SCH (13:18)
[2017-11-12] MEDS ORDERED: LIDOCAINE 1% INJ 10MG/ML (20 ML MDV) ONE (15:41)
[2017-11-12] MEDS ORDERED: PROPOFOL 10 MG/ML 20 ML VIAL IV ONE (15:41)
[2017-11-12] MEDS ORDERED: IV FLUID CONTINUATION 1,000 ML IV ONE (15:42)
--- NOTE | 2017-11-12 15:57 | P.PCN ---
Date of Procedure: 11/12/17 Procedure(s) Performed: BRIEF HISTORY: Patient is a 87-year-old, pleasant, male, scheduled for an upper endoscopy as part of evaluation of anemia and hemoglobin of 7.2 g/dL. Patient has prior history of peptic ulcer disease. Last EGD in June 2014 was noted to have a large an ulcer with active bleeding. He is presently being evaluated for anemia and also scheduled for an upper endoscopy to [facility] for recurrent peptic ulcer disease. PROCEDURE PERFORMED: Esophagogastroduodenoscopy. PREOPERATIVE DIAGNOSIS: Symptomatically anemia/prior history of peptic ulcer disease. IV sedation per anesthesia. PROCEDURE: After informed consent was obtained, the patient was brought into the endoscopy unit. IV sedation was administered by Anesthesia under continuous monitoring. Initially the Olympus GIF-140 video endoscope was inserted into the mouth. Esophagus intubated without any difficulty. It was gradually advanced into the stomach and duodenum and carefully examined. The bulb and the second part of the duodenum appeared normal. The scope at this time was withdrawn to the stomach, adequately insufflated with air, and upon careful examination, mucosa of the antrum, body, cardia and the fundus appeared normal. The scope was then withdrawn into the esophagus. The GE junction was located at 39 cm from the incisors. The esophagus appeared normal. There were no erosions or ulcerations seen and the patient tolerated the procedure well. IMPRESSION: 1. Normal-appearing esophagus, stomach and duodenum with no evidence of peptic ulcer disease or gastritis. RECOMMENDATIONS: The findings of this examination were discussed with the patient . He will be started on a regular diet today.
[2017-11-12] MEDS: ASPIRIN 81 MG PO SCH (18:01)
--- NOTE | 2017-11-12 18:38 | PN ---
PROGRESS NOTE DATE OF SERVICE: 11/11/2017 This 87-year-old gentleman who was admitted with change in mental status as well as acute UTI. The patient is on IV antibiotics. No chest pain. No palpitations. No fever. On exam, alert and oriented x3. The pulse is 60, blood pressure 116/53, respiration 16, temperature 97.3, pulse ox 94% on room air. HEENT: Conjunctivae normal. Oral mucosa moist. NECK: No jugular venous distention. No carotid bruit. No lymph node enlargement. CARDIOVASCULAR SYSTEM: S1, S2 muffled. RESPIRATORY SYSTEM: Breath sounds diminished at the bases. A few scattered rhonchi. No crackles. ABDOMEN: Soft, non-tender. LEGS: No edema. No swelling. NERVOUS SYSTEM: Diffusely weak. Labs are reviewed. ASSESSMENT: 1. Acute urinary tract infection with Gram-negative bacilli with sepsis. 2. Chest pain, possible acute nej-AB-mknulwl-elevation myocardial infarction with troponin 0.566. 3. Acute renal failure secondary to acute tubular necrosis. 4. Chronic congestive heart failure, ejection fraction 35% to 40%. 5. History of multiple myeloma. 6. Coronary artery disease history. 7. NO CODE, NO CPR, NO VENT. RECOMMENDATIONS AND DISCUSSION: I recommend to continue current medication, continue monitoring, continue symptomatic treatment. Otherwise, continue with the antibiotics. Closely monitor. Guarded prognosis. Further recommendations to follow. MMODL / IJN: [id number] /
--- NOTE | 2017-11-12 18:41 | PN ---
PROGRESS NOTE DATE OF SERVICE: 11/12/2017 This 87-year-old gentleman who who was admitted with change in mental status and acute UTI with sepsis had ESBL E coli grown out from the culture. No chest pain. No palpitations. No fever. On exam, alert and oriented x3. Pulse 62, blood pressure 122/58, respiration 18, temperature 97.2, pulse ox 97% on 3 L. HEENT: Conjunctivae normal. NECK: No jugular venous distention. CARDIOVASCULAR SYSTEM: S1, S2 muffled. RESPIRATORY SYSTEM: Breath sounds diminished at the bases. A few scattered rhonchi and expiratory wheezing and crackles. ABDOMEN: Soft, non-tender. LEGS: No edema. No swelling. NERVOUS SYSTEM: No focal deficit. LABS: WBC 3.6, hemoglobin 8.1, platelets 97. Creatinine is 1.96. ASSESSMENT: 1. Urinary tract infection, acute, with ESBL Escherichia coli with sepsis secondary to chronic indwelling Reid catheter. 2. Chest pain with possible leh-JD-jokigyz-elevation myocardial infarction with troponin 0.566. 3. Acute renal failure secondary to acute tubular necrosis. 4. Congestive heart failure with chronic systolic dysfunction, ejection fraction 35% to 40%. 5. History of multiple myeloma. 6. History of coronary artery disease, coronary artery bypass grafting, stent. 7. NO CODE, NO CPR, NO VENT. RECOMMENDATIONS AND DISCUSSION: I recommend to continue current medication, continue with symptomatic treatment, continue with antibiotics. Closely monitor. Currently patient is on ertapenem. Otherwise, IV fluids. PT/OT evaluation. Eventual ECF rehab. Further recommendations to follow. MMZELDA / KARYN: [id number] /
[2017-11-12] MEDS: MELATONIN 1 MG TAB PO SCH (20:34)
[2017-11-13] MEDS: SODIUM CHLORIDE 0.45% 1,000 ML IV SCH ×2 (05:20→20:06)
--- NOTE | 2017-11-13 06:05 | PN ---
PROGRESS NOTE DATE OF SERVICE: 11/12/2017. REASON FOR FOLLOWUP: ESBL E coli UTI and possible aspiration pneumonitis. INTERVAL HISTORY: The patient is afebrile. He seemed to be awake, alert, breathing comfortably. No chest pain. Occasional cough. No abdominal pain and no diarrhea. EXAMINATION: Blood pressure is 116/57, pulse of 78, temperature of 97.1. He is 98% on 3 L nasal cannula. General description is an elderly male lying in bed in no distress. RESPIRATORY SYSTEM: Unlabored breathing. Clear to auscultation anteriorly. HEART: S1, S2. Regular rate and rhythm. ABDOMEN: Soft, no tenderness. EXTREMITIES: No edema feet. LABS: Hemoglobin 8.1, white count of 3.7 with a BUN of 26, creatinine 1.96. Repeat urine culture was ordered, unfortunately UA was not done. Blood culture has been obtained, currently pending. DIAGNOSTIC IMPRESSION AND PLAN: Patient with a catheter associated urinary tract infection, UA with a ESBL E coli. Currently on Invanz. His Reid has been discontinued and UA and cultures have been obtained from the new Erid. Those will be followed. Keep the patient on Invanz until those cultures are finalized. Continue supportive care. MMODL / IJN: [id number] /
[2017-11-13 06:57] LABS: Anisocytosis Slight; HCT 26.1 % (39.0-53.0); HGB 8.1 gm/dL (13.0-17.5); Hypochromasia Slight; MCH 30.2 pg (25.0-35.0); MCHC 30.9 g/dL (31.0-37.0); MCV 97.7 fL (80.0-100.0); Macrocytosis Slight; Mean Platelet Volume 8.4; RBC 2.67 m/uL (4.30-5.90); RDW 18.2 % (11.5-15.5); WBC 3.6 k/uL (3.8-10.6)
[2017-11-13 07:01] LABS: Platelet Count 93 k/uL (150-450)
[2017-11-13 07:04] LABS: Calcium 9.3 mg/dL (8.4-10.2); Potassium 4.3 mmol/L (3.5-5.1)
[2017-11-13 07:25] LABS: Band Neutrophils % 1 %; Eosinophils # (M) 0.14 k/uL (0-0.7); Lymphocytes # (M) 0.86 k/uL (1.0-4.8); Monocytes # (M) 0.11 k/uL (0-1.0); Neutrophils % (M) 68 %; Nucleated Red Blood Cells 0 /100 WBC (0-0); Rouleaux Present; Total Cells Counted 100
[2017-11-13] MEDS: DULoxetine HCL 60 MG CAPSULE.DR PO SCH (09:08)
[2017-11-13] MEDS: ATORVASTATIN 40 MG TAB PO SCH (09:08)
[2017-11-13] MEDS: METOPROLOL TARTRATE 50 MG TAB PO SCH ×2 (09:08→20:05)
[2017-11-13] MEDS: ISOSORBIDE MONONITRATE ER 60 MG TAB.ER.24H PO SCH ×2 (09:08→20:06)
[2017-11-13] MEDS: ASPIRIN 81 MG PO SCH (09:08)
[2017-11-13] MEDS: GABAPENTIN 300 MG CAP PO SCH ×2 (09:08→20:06)
[2017-11-13] MEDS: LORATADINE 10 MG TAB PO SCH (09:09)
[2017-11-13] MEDS: SODIUM BICARBONATE TAB 650 MG TAB PO SCH (09:09)
[2017-11-13] MEDS: SENNOSIDES-DOCUSATE SODIUM 1 EACH TAB PO SCH (09:09)
[2017-11-13] MEDS: PANTOPRAZOLE 40 MG TABLET PO SCH (09:09)
[2017-11-13] MEDS: POTASSIUM CHLORIDE ER 10 MEQ TAB.ER.PRT PO SCH (09:09)
--- NOTE | 2017-11-13 11:38 | P.PN ---
Subjective Progress Note Date: 11/13/17 Principal diagnosis: This is a 87-year-old male with chronic kidney disease and acute kidney injury, presumed to be secondary to diuresis.. He does of systolic CHF with ejection fraction of 40%. Patient has a suprapubic Reid catheter for underlying urinary retention which was changed prior to this admission. He has history of recurrent UTIs. Urine culture is positive for ESBL E.coli. This morning he is saying is feeling better is generalized weakness mostly bedridden. Eating fairly but less than his meals. No nausea vomiting fever chills cough shortness of breath and no abdominal pain. He has a chronic Reid catheter. Objective - Vital Signs Vital signs: Vital Signs Temp 96.9 F L 11/13/17 08:00 Pulse 60 11/13/17 08:00 Resp 18 11/13/17 08:00 BP 103/50 11/13/17 08:00 Pulse Ox 97 11/13/17 09:07 Intake & Output 11/12/17 11/13/17 11/13/17 18:59 06:59 18:59 Intake Total 220 825 240 Output Total 600 600 Balance -380 225 240 Weight 104.5 kg Intake: IV 100 Intake, IV Titration 725 Amount Sodium Chloride 0.45% 1, 725 000 ml @ 75 mls/hr IV . [id number] [facility] Rx#:[id number] Oral 120 100 240 Output: Urine 600 600 Other: Voiding Method Indwelling Catheter Indwelling Catheter Indwelling Catheter # Voids 0 # Bowel Movements 0 On examination he is bedridden but arousable and answers questions and cooperates A chin exam no JVP neck is supple no facial asymmetry Lungs are significant for right basal coarse crackles not clear but cough. X- ray done during admission was unremarkable Heart sounds are unremarkable for any murmur rub gallop Abdomen soft nontender no masses felt no organomegaly Extremity exam was no edema Neurologically awake alert oriented - Labs CBC & Chem 7: 11/13/17 06:16 11/13/17 06:16 Labs: Abnormal Lab Results - Last 24 Hours (Table) 11/13/17 11/13/17 Range/Units 06:16 06:16 WBC 3.6 L (3.8-10.6) k/uL RBC 2.67 L (4.30-5.90) m/uL Hgb 8.1 L (13.0-17.5) gm/dL Hct 26.1 L (39.0-53.0) % MCHC 30.9 L (31.0-37.0) g/dL RDW 18.2 H (11.5-15.5) % Plt Count 93 L (150-450) k/uL Lymphocytes # (Manual) 0.86 L (1.0-4.8) k/uL BUN 24 H (9-20) mg/dL Creatinine 1.80 H (0.66-1.25) mg/dL Microbiology - Last 24 Hours (Table) 11/09/17 05:15 Blood Culture - Preliminary Blood No Growth after 96 hours 11/11/17 22:30 Urine Culture - Preliminary Urine,Catheterized Assessment and Plan Assessment: Impression. 1. Acute kidney injury from diuresis improved. 2. History of chronic kidney disease with and creatinine is 1 and no proteinuria. 3. ESBL E. coli UTI. 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 Currently compensated. There is few crackles in the right base but the last chest x-ray was on remarkable. 5. Hypernatremia resolved. Sodium is 143 6. Metabolic acidosis resolved bicarb is 25 7. Ultrasound on this admission showed bilateral renal masses needs urological evaluation. 8. Multiple myeloma in remission bone marrow done yesterday. Patient has pancytopenia Recommendation. 1. Maintain IV normal saline 75 mL an hour as his intake is poor 2. Follow-up bone marrow results. 3. Needs follow-up for his renal mass 4. Watch hemoglobin, also the pancytopenia
--- NOTE | 2017-11-13 12:43 | P.PN ---
Subjective Progress Note Date: 11/13/17 Progress note being dictated for Dr. Bravo. Interval history: This 77-year-old gentleman admitted with chest pain, possible acute non-STEMI, change in mental status, possible acute UTI, acute on chronic renal failure in a patient with multiple myeloma and multiple other medical issues. Maintained on broad-spectrum IV antibiotics. Echo reporting mild to moderately impaired LV function, EF 40-45%, mild to moderate aortic regurgitation, aortic root dilated, 3.9 cm. maintained on IV fluid hydration .evaluated by cardiology, Brilenta discontinued, with no further cardiac workup recommended at this time. Evaluated by oncology/hematology, nephrology, infectious disease with recommendations noted. Sodium 147, maintained on D5W. 11/10/17 maintained on D5W, sodium WNL, 144. IV fluids changed to half-normal saline. Hemoglobin decreased to 8.0. No bleeding reported. Maintained on Rocephin and Levaquin. Poor diet intake, consuming 25%. Chest x-ray non acute. Afebrile. 11/13/2017 completed EGD yesterday, reporting normal esophagus stomach and duodenum with no evidence of peptic ulcer disease or gastritis. underwent bone marrow biopsy yesterday, hemoglobin currently 8.1. Creatinine 1.8. Maintained on IV antibiotics of Invanz for ESBL E. coli as per infectious disease. Reid catheter changed yesterday. Repeat urine culture pending. Denies chest pain, palpitations or increased shortness of breath. Occasional cough. Afebrile. Objective - Vital Signs Vital signs: Vital Signs Temp 96.9 F L 11/13/17 08:00 Pulse 64 11/13/17 12:00 Resp 18 11/13/17 12:00 BP 103/50 11/13/17 08:00 Pulse Ox 97 11/13/17 09:07 Intake & Output 11/12/17 11/13/17 11/13/17 18:59 06:59 18:59 Intake Total 220 825 240 Output Total 600 600 Balance -380 225 240 Weight 104.5 kg Intake: IV 100 Intake, IV Titration 725 Amount Sodium Chloride 0.45% 1, 725 000 ml @ 75 mls/hr IV . [id number] [facility] Rx#:[id number] Oral 120 100 240 Output: Urine 600 600 Other: Voiding Method Indwelling Catheter Indwelling Catheter Indwelling Catheter # Voids 0 # Bowel Movements 0 - Exam PHYSICAL EXAM: VITAL SIGNS: [As above] GENERAL: Sitting up in bed, no acute distress HEENT: Conjunctivae normal. eyes normal. Oral mucosa moist NECK: No JVD. No thyroid enlargement. No LNs CARDIOVASCULAR: S1, S2 muffled. No murmur RESPIRATION: Breath sounds diminished in the bases. Scattered rhonchi, crackles. No wheezes. ABDOMEN: Soft, nontender . No guarding. no masses palpable. Positive Bowel sounds. LEGS: No edema. no swelling PSYCHIATRY: Alert and oriented -3, mood and affect normal. NERVOUS SYSTEM: Cranial N 2-12 grossly normal. Moves all 4 limbs. Diffuse weakness No focal deficits. Skin: no ulcer no rash Microbiology 11/09/17 05:15 Blood Blood Culture - Preliminary No Growth after 96 hours 11/11/17 22:30 Urine,Catheterized Urine Culture - Preliminary 11/08/17 22:44 Urine,Catheterized Urine Culture - Final Escherichia coli - Labs CBC & Chem 7: 11/13/17 06:16 11/13/17 06:16 Labs: Abnormal Lab Results - Last 24 Hours (Table) 11/13/17 11/13/17 Range/Units 06:16 06:16 WBC 3.6 L (3.8-10.6) k/uL RBC 2.67 L (4.30-5.90) m/uL Hgb 8.1 L (13.0-17.5) gm/dL Hct 26.1 L (39.0-53.0) % MCHC 30.9 L (31.0-37.0) g/dL RDW 18.2 H (11.5-15.5) % Plt Count 93 L (150-450) k/uL Lymphocytes # (Manual) 0.86 L (1.0-4.8) k/uL BUN 24 H (9-20) mg/dL Creatinine 1.80 H (0.66-1.25) mg/dL Microbiology - Last 24 Hours (Table) 11/09/17 05:15 Blood Culture - Preliminary Blood No Growth after 96 hours 11/11/17 22:30 Urine Culture - Preliminary Urine,Catheterized Assessment and Plan Assessment: 1. acute UTI-with ESBL E. coli with sepsis secondary to chronic indwelling Reid catheter, present on admission. 2. Chest pain, with a possible STEMI with Troponin 0.566 3. Acute renal failure secondary to ATN 4. Chronic congestive heart failure, systolic dysfunction, EF 35-40% 5. History of multiple myeloma 6. CAD history of [place], CABG, stent 7. No code, no CPR, no intubation 8. Hypernatremia secondary to dehydration, diuretics, resolved 9. Acute on chronic Anemia, in a patient with history of bleeding duodenal ulcer disease, embolization at [facility], status post EGD; negative. Possibly related to multiple myeloma. Pancytopenia, bone marrow biopsy results pending. Plan: Continue on current medication regime ,PPI,monitoring and symptomatic treatment. Bone Marrow results pending. Antibiotics as per ID. Gentle IV fluid hydration. Repeat Urine culture results pending. Close monitoring of electrolytes, renal function, CBC with repeat labs ordered for a.m. Discharge planning in progress for return to [facility] subacute rehab., pending finalization of cultures. The impression and plan of care has been dictated as directed. : I performed a history and examination of this patient, discussed the same with the dictator. I agree with the dictator's note ,documented as a scribe. Any additional findings or plans will be noted.
[2017-11-13] MEDS: ERTAPENEM 0.5 GM in SODIUM CHLORIDE 0.9% 50 ML IVPB SCH (12:50)
--- NOTE | 2017-11-13 15:45 | PN ---
PROGRESS NOTE DATE OF SERVICE: 11/13/2017. REASON FOR FOLLOWUP: ESBL E coli urinary tract infection. INTERVAL HISTORY: The patient is afebrile. He has seemed to be more awake, and alert. He is breathing comfortably. Denies having any chest pain, shortness of breath, cough, no abdominal pain, or any diarrhea. EXAMINATION: Blood pressure is 100/50, pulse of 60, temperature of 96.9. He is 95% on 3 L nasal cannula. General description is an elderly male lying in bed in no distress. Respiratory system unlabored breathing. Clear to auscultation anteriorly. Heart S1, S2. Regular rate and rhythm. ABDOMEN: Soft, no tenderness. EXTREMITIES: No edema of feet. LABS: Hemoglobin 8.1, white count 3.6, BUN of 24, creatinine 1.80. Repeat urine is currently showing yeast species. DIAGNOSTIC IMPRESSION AND PLAN: Patient with catheter-associated urinary tract infection with ESBL E coli for which the patient is currently on Invanz that will be continued while waiting for the repeat culture to finalize. No need for any PICC line or outpatient antibiotic therapy with repeat showing mostly yeast. Will add Diflucan. Continue supportive care. Family present at bedside. All their questions were answered. MMODL / IJN: [id number] /
[2017-11-13] MEDS: MELATONIN 1 MG TAB PO SCH (20:05)
[2017-11-14] MEDS: SODIUM CHLORIDE 0.45% 1,000 ML IV SCH ×2 (06:00→23:21)
[2017-11-14 07:12] LABS: Calcium 9.4 mg/dL (8.4-10.2)
[2017-11-14 07:20] LABS: Potassium 5.3 mmol/L (3.5-5.1)
[2017-11-14 08:12] LABS: Anisocytosis Slight; Basophils % (A) 0 %; Eosinophils # (A) 0.1 k/uL (0-0.7); Eosinophils % (A) 2 %; HGB 8.5 gm/dL (13.0-17.5); Hypochromasia Moderate; Lymphocytes # (A) 0.6 k/uL (1.0-4.8); Lymphocytes % (A) 14 %; MCH 31.1 pg (25.0-35.0); MCHC 31.7 g/dL (31.0-37.0); MCV 98.1 fL (80.0-100.0); Macrocytosis Slight; Mean Platelet Volume 8.7; Monocytes # (A) 0.5 k/uL (0-1.0); Monocytes % (A) 10 %; Neutrophils # (A) 3.1 k/uL (1.3-7.7); Neutrophils % (A) 70 %; RBC 2.75 m/uL (4.30-5.90); RDW 18.1 % (11.5-15.5); WBC 4.5 k/uL (3.8-10.6)
[2017-11-14 08:16] LABS: Platelet Count 97 k/uL (150-450)
[2017-11-14 09:13] LABS: Rouleaux Present; Toxic Granulation Present
[2017-11-14 09:14] LABS: Poikilocytosis (M) Present
[2017-11-14] MEDS: SODIUM BICARBONATE TAB 650 MG TAB PO SCH (10:11)
[2017-11-14] MEDS: ASPIRIN 81 MG PO SCH (10:11)
[2017-11-14] MEDS: GABAPENTIN 300 MG CAP PO SCH ×2 (10:12→20:54)
[2017-11-14] MEDS: ATORVASTATIN 40 MG TAB PO SCH (10:12)
[2017-11-14] MEDS: DULoxetine HCL 60 MG CAPSULE.DR PO SCH (10:12)
[2017-11-14] MEDS: POTASSIUM CHLORIDE ER 10 MEQ TAB.ER.PRT PO SCH (10:12)
[2017-11-14] MEDS: PANTOPRAZOLE 40 MG TABLET PO SCH (10:12)
[2017-11-14] MEDS: FLUCONAZOLE 100 MG TAB PO SCH (10:12)
[2017-11-14] MEDS: METOPROLOL TARTRATE 50 MG TAB PO SCH ×2 (10:12→20:54)
[2017-11-14] MEDS: LORATADINE 10 MG TAB PO SCH (10:12)
[2017-11-14] MEDS: ISOSORBIDE MONONITRATE ER 60 MG TAB.ER.24H PO SCH ×2 (10:12→20:54)
[2017-11-14] MEDS: SENNOSIDES-DOCUSATE SODIUM 1 EACH TAB PO SCH (10:12)
--- NOTE | 2017-11-14 11:24 | P.PN ---
Subjective Progress Note Date: 11/14/17 Principal diagnosis: This is a 87-year-old male with chronic kidney disease and acute kidney injury, presumed to be secondary to diuresis. He is feeling fairly well denies any complaints. His creatinine is getting better.. He has systolic CHF with ejection fraction of 40%. Patient has a suprapubic Reid catheter for underlying urinary retention which was changed prior to this admission. He has history of recurrent UTIs. Urine culture is positive for ESBL E.coli. This morning he is saying is feeling better is generalized weakness mostly bedridden. Eating fairly but less than his meals. No nausea vomiting fever chills cough shortness of breath and no abdominal pain. He has a chronic Reid catheter. Objective - Vital Signs Vital signs: Vital Signs Temp 97.1 F L 11/14/17 08:00 Pulse 58 L 11/14/17 08:00 Resp 14 11/14/17 08:00 BP 72/40 11/14/17 08:00 Pulse Ox 97 11/14/17 08:00 Intake & Output 11/13/17 11/14/17 11/14/17 18:59 06:59 18:59 Intake Total 480 850 Output Total 700 475 80 Balance -220 375 -80 Weight 104.6 kg Intake: Intake, IV Titration 750 Amount Sodium Chloride 0.45% 1, 750 000 ml @ 75 mls/hr IV . [id number] [facility] Rx#:[id number] Oral 480 100 Output: Urine 700 475 80 Other: Voiding Method Indwelling Catheter Indwelling Catheter Indwelling Catheter On exam she is awake alert oriented. Generalized weakness. A chin exam no JVP neck is supple no facial asymmetry Lungs are clear to auscultation and percussion good air entry bilaterally Heart sounds are unremarkable for any murmur rub gallop. Abdomen soft nontender no masses ascites Extremity exam was no edema Neurologically awake alert oriented generalized weakness mostly bedridden. - Labs CBC & Chem 7: 11/14/17 07:50 11/14/17 06:40 Labs: Abnormal Lab Results - Last 24 Hours (Table) 11/14/17 11/14/17 Range/Units 06:40 07:50 RBC 2.75 L (4.30-5.90) m/uL Hgb 8.5 L (13.0-17.5) gm/dL Hct 27.0 L (39.0-53.0) % RDW 18.1 H (11.5-15.5) % Plt Count 97 L (150-450) k/uL Lymphocytes # 0.6 L (1.0-4.8) k/uL Potassium 5.3 H (3.5-5.1) mmol/L Carbon Dioxide 21 L (22-30) mmol/L BUN 24 H (9-20) mg/dL Creatinine 1.60 H (0.66-1.25) mg/dL Glucose 100 H (74-99) mg/dL Microbiology - Last 24 Hours (Table) 11/09/17 05:15 Blood Culture - Preliminary Blood No Growth after 120 hours 11/11/17 22:30 Urine Culture - Preliminary Urine,Catheterized Yeast species Assessment and Plan Assessment: Impression. 1. Acute kidney injury from diuresis improved. Off of diuretics 2. History of chronic kidney disease with and creatinine is 1 and no proteinuria. 3. ESBL E. coli UTI. 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 Currently compensated. 5. Hypernatremia resolved. Sodium is 143 6. Metabolic acidosis, after improvement of bicarb 25 yesterday is down to 21 today, possibly from IV fluids and dilution. He is on sodium bicarb 650 once a day 7. Ultrasound on this admission showed bilateral renal masses needs urological evaluation. 8. Multiple myeloma in remission bone marrow done yesterday. Patient has pancytopenia Recommendation. 1. Maintain IV normal saline 75 mL an hour as his intake is poor 2. Follow-up bone marrow results. 3. Needs follow-up for his renal mass 4. Watch hemoglobin, also the pancytopenia 5. Increase sodium bicarbonate to 6 and 50 twice a day
[2017-11-14] MEDS: ERTAPENEM 0.5 GM in SODIUM CHLORIDE 0.9% 50 ML IVPB SCH (11:33)
[2017-11-14] MEDS: MELATONIN 1 MG TAB PO SCH (20:55)
--- NOTE | 2017-11-14 22:07 | PN ---
PROGRESS NOTE DATE OF SERVICE: 11/14/2017 REASON FOR FOLLOWUP: Catheter-associated urinary tract infection with ESBL E. coli. INTERVAL HISTORY: The patient is afebrile. He has been breathing comfortably. Denies having any chest pain or shortness of breath, cough, abdominal pain or any diarrhea. EXAMINATION: Blood pressure 120/58 with a pulse of 60, temperature 96.8. He is 98% on 3 L nasal cannula. General description is an elderly male lying in bed in no distress. RESPIRATORY SYSTEM: Unlabored breathing, clear to auscultation anteriorly. HEART: S1, S2. Regular rate and rhythm. ABDOMEN: Soft, no tenderness. LABS: Hemoglobin 8.5, white count 4.5 with a BUN of 24, creatinine 1.60. Repeat urine is Rosalind albicans. DIAGNOSTIC IMPRESSION AND PLAN: Patient with ESBL E. coli urinary tract infection with the repeat urine cultures have been negative so far. We will discontinue the Invanz and give a short course of oral Diflucan for about a week to finish therapy and no need for PICC line. Continue supportive care. MMODL / IJN: [id number] /
--- NOTE | 2017-11-14 23:20 | P.PN ---
Subjective Progress Note Date: 11/14/17 Principal diagnosis: Acute urinary tract infection Mr. Casanova is a 87-year-old male with a past medical history of multiple myeloma, atrial fibrillation, coronary artery disease, congestive heart failure , GERD, hypertension, prostate disorder coming into the hospital with a chief complaint of altered mental status changes. Later on patient was found to have urinary tract infection, acute on chronic kidney injury and pancytopenia. Patient has history of multiple myeloma that was in remission. But now that he has pancytopenia he had a bone marrow biopsy done the results of which are currently pending. His urine is positive for ESBL E. coli for which he is on Invanz. His urine culture is positive also positive for Rosalind albicans. As the patient had low hemoglobin patient had EGD done on 11/12/2017 showing normal esophagus stomach and duodenum with no evidence of peptic ulcer disease or gastritis. Patient is currently being evaluated by oncology, nephrology, infectious disease services. Today the patient is lying in bed and he states that he is very tired and does not want to talk. Review of systems: Could not be done as the patient states he is tired to talk and wants to rest. Objective - Vital Signs Vital signs: Vital Signs Temp 97.1 F L 11/14/17 08:00 Pulse 61 11/14/17 11:43 Resp 14 11/14/17 11:43 BP 127/61 11/14/17 11:39 Pulse Ox 98 11/14/17 11:39 Intake & Output 11/13/17 11/14/17 11/14/17 18:59 06:59 18:59 Intake Total 480 850 Output Total 700 475 330 Balance -220 375 -330 Weight 104.6 kg Intake: Intake, IV Titration 750 Amount Sodium Chloride 0.45% 1, 750 000 ml @ 75 mls/hr IV . [id number] [facility] Rx#:[id number] Oral 480 100 Output: Urine 700 475 330 Other: Voiding Method Indwelling Catheter Indwelling Catheter Indwelling Catheter - Exam Physical exam HEENT: Mild pallor no icterus Neck: No JVD no thyroid enlargement Cardiovascular: As an S2 heard Respiratory: Diminished breath sounds in the bilateral lower lung bangura. Few crackles at the lung bases on both sides Abdomen : soft nontender positive for bowel sounds Extremities: No edema no cyanosis [employer]: No focal neurological deficits on gross exam - Labs CBC & Chem 7: 11/14/17 07:50 11/14/17 06:40 Labs: Abnormal Lab Results - Last 24 Hours (Table) 11/14/17 11/14/17 Range/Units 06:40 07:50 RBC 2.75 L (4.30-5.90) m/uL Hgb 8.5 L (13.0-17.5) gm/dL Hct 27.0 L (39.0-53.0) % RDW 18.1 H (11.5-15.5) % Plt Count 97 L (150-450) k/uL Lymphocytes # 0.6 L (1.0-4.8) k/uL Potassium 5.3 H (3.5-5.1) mmol/L Carbon Dioxide 21 L (22-30) mmol/L BUN 24 H (9-20) mg/dL Creatinine 1.60 H (0.66-1.25) mg/dL Glucose 100 H (74-99) mg/dL Microbiology - Last 24 Hours (Table) 11/11/17 22:30 Urine Culture - Final Urine,Catheterized Rosalind albicans 11/09/17 05:15 Blood Culture - Preliminary Blood No Growth after 120 hours Assessment and Plan Plan: 1. Acute UTI-with ESBL E. coli with sepsis secondary to chronic indwelling Reid catheter, present on admission. 2. Chest pain, with a possible NSTEMI with Troponin 0.566 3. Acute renal failure secondary to ATN 4. Chronic congestive heart failure, systolic dysfunction, EF 35-40% 5. History of multiple myeloma 6. CAD history of [place], CABG, stent 7. No code, no CPR, no intubation 8. Hypernatremia secondary to dehydration, diuretics, resolved 9. Acute on chronic Anemia, in a patient with history of bleeding duodenal ulcer disease, embolization at [facility], status post EGD; negative. Possibly related to multiple myeloma. 10 . Pancytopenia Plan: Patient is to be continued on Invanz for ESBL E. coli. Continue with Diflucan for Rosalind albicans in the urine. Gentle hydration for his acute kidney injury - creatinine is slowly trending down. Pancytopenia for which the bone marrow biopsy results are pending. Overall prognosis is poor. Patient is DO NOT RESUSCITATE.
[2017-11-15 04:16] VITALS: RESP 17
[2017-11-15 06:57] LABS: Anisocytosis Slight; HCT 25.2 % (39.0-53.0); HGB 8.1 gm/dL (13.0-17.5); Hypochromasia Slight; MCH 32.1 pg (25.0-35.0); MCHC 32.2 g/dL (31.0-37.0); MCV 99.6 fL (80.0-100.0); Macrocytosis Slight; RBC 2.53 m/uL (4.30-5.90); RDW 18.2 % (11.5-15.5); WBC 3.5 k/uL (3.8-10.6)
[2017-11-15 07:07] LABS: Calcium 9.1 mg/dL (8.4-10.2); Potassium 4.5 mmol/L (3.5-5.1)
[2017-11-15 07:48] LABS: Eosinophils # (M) 0.07 k/uL (0-0.7); Lymphocytes # (M) 1.02 k/uL (1.0-4.8); Monocytes # (M) 0.04 k/uL (0-1.0); Neutrophils # (M) 2.38 k/uL (1.3-7.7); Neutrophils % (M) 68 %; Nucleated Red Blood Cells 0 /100 WBC (0-0); Platelet Count 89 k/uL (150-450); Total Cells Counted 100
[2017-11-15] MEDS: FLUCONAZOLE 100 MG TAB PO SCH (08:47)
[2017-11-15] MEDS: DULoxetine HCL 60 MG CAPSULE.DR PO SCH (08:47)
[2017-11-15] MEDS: GABAPENTIN 300 MG CAP PO SCH (08:47)
[2017-11-15] MEDS: ATORVASTATIN 40 MG TAB PO SCH (08:47)
[2017-11-15] MEDS: ASPIRIN 81 MG PO SCH (08:47)
[2017-11-15] MEDS: SODIUM BICARBONATE TAB 650 MG TAB PO SCH (08:48)
[2017-11-15] MEDS: PANTOPRAZOLE 40 MG TABLET PO SCH (08:48)
[2017-11-15] MEDS: SENNOSIDES-DOCUSATE SODIUM 1 EACH TAB PO SCH (08:48)
[2017-11-15] MEDS: ISOSORBIDE MONONITRATE ER 60 MG TAB.ER.24H PO SCH (08:48)
[2017-11-15] MEDS: METOPROLOL TARTRATE 50 MG TAB PO SCH (08:48)
[2017-11-15] MEDS: LORATADINE 10 MG TAB PO SCH (08:48)
[2017-11-15] MEDS: SODIUM CHLORIDE 0.45% 1,000 ML IV SCH (08:50)
--- NOTE | 2017-11-15 09:17 | P.PN ---
Subjective Patient is seen in follow-up for acute kidney injury on chronic kidney disease. Patient's baseline creatinine is 1 and peaked at 2.4 this admission - down to 1.46 today. He is currently resting in bed. He does of systolic CHF with ejection fraction of 40%. Patient has a suprapubic Reid catheter for underlying urinary retention which was changed prior to this admission. He has history of recurrent UTIs. Urine culture is positive for ESBL E.coli and Rosalind albicans. Oral intake is a little improved. He is nonoliguric. Denies chest pain or shortness of breath. Patient has history of multiple myeloma and underwent a bone marrow biopsy on November 12. He also received blood transfusion this admission. Vital signs are stable. General: The patient appeared well nourished and normally developed. HEENT: Head exam is unremarkable. Neck is without jugular venous distension. LUNGS: Lungs are clear to auscultation and percussion. Breath sounds decreased. HEART: Rate and Rhythm are regular. First and second heart sounds normal. No murmurs, rubs or gallops. ABDOMEN: Abdominal exam reveals normal bowel sounds. Non-tender and non- distended. No evidence of peritonitis. EXTREMITITES: No clubbing, cyanosis, or edema. Objective - Vital Signs Vital signs: Vital Signs Temp 97.1 F L 11/15/17 04:15 Pulse 86 11/15/17 04:15 Resp 17 11/15/17 04:15 BP 154/72 11/15/17 04:15 Pulse Ox 96 11/15/17 07:27 Intake & Output 11/14/17 11/15/17 11/15/17 18:59 06:59 18:59 Intake Total 240 1080 240 Output Total 330 950 Balance -90 130 240 Weight 119 kg Intake: Intake, IV Titration 600 Amount Sodium Chloride 0.45% 1, 600 000 ml @ 75 mls/hr IV . [id number] [facility] Rx#:[id number] Oral 240 480 240 Output: Urine 330 950 Other: Voiding Method Indwelling Catheter Indwelling Catheter - Labs CBC & Chem 7: 11/15/17 06:16 11/15/17 06:16 Labs: Abnormal Lab Results - Last 24 Hours (Table) 11/14/17 11/15/17 11/15/17 Range/Units 07:50 06:16 06:16 WBC 3.5 L (3.8-10.6) k/uL RBC 2.53 L (4.30-5.90) m/uL Hgb 8.1 L (13.0-17.5) gm/dL Hct 25.2 L (39.0-53.0) % RDW 18.2 H (11.5-15.5) % Plt Count 89 L (150-450) k/uL Lymphocytes # 0.6 L (1.0-4.8) k/uL Creatinine 1.46 H (0.66-1.25) mg/dL Microbiology - Last 24 Hours (Table) 11/09/17 05:15 Blood Culture - Final Blood No Growth after 144 hours 11/14/17 11:43 Urine Culture - Preliminary Urine,Clean Catch 11/11/17 22:30 Urine Culture - Final Urine,Catheterized Rosalind albicans Assessment and Plan Plan: Assessment: #1. Nonoliguric acute kidney injury secondary to ATN. Creatinine peaked at 2.4 this admission and is 1.46 today. Baseline creatinine is near 1. No proteinuria noted on urinalysis. No hydronephrosis noted on renal ultrasound. #2. Systolic CHF with ejection fraction of 40%. Compensated. #3. ESBL E. coli UTI maintained on antibiotics per infectious disease recommendations. #4. History of multiple UTIs. Patient has a suprapubic catheter. #5. Hypernatremia secondary to lack of oral water intake and further free water losses from diuretics. Improved. #6. Metabolic acidosis secondary to acute kidney injury maintained on oral sodium bicarbonate. #7. Anemia. Iron replete. No active bleeding noted. GI following. Status post 1 unit of blood on November 11. EGD benign. Underlying myeloma likely a contributing factor. #8. History of multiple myeloma in remission. Oncology following - status post bone marrow biopsy on November 12. #9. Bilateral complex renal masses. Consider urology evaluation. Plan: Continue to hold diuretics. Continue half-normal saline to be run at 75 mL an hour. Encouraged oral intake. Repeat electrolytes in the morning.
[2017-11-15 09:35] VITALS: TEMP 97.3
--- NOTE | 2017-11-15 11:59 | P.PN ---
Subjective Progress Note Date: 11/15/17 Principal diagnosis: AMS Patient seen today in follow-up. He is resting comfortably when I entered the room, aroused easily to soft voice. He denied nausea, hunger, difficulty in breathing, need to go to the bathroom or pain. He denied any discomfort at the site of the bone marrow biopsy and aspirate. Objective - Vital Signs Vital signs: Vital Signs Temp 97.3 F L 11/15/17 08:00 Pulse 68 11/15/17 08:00 Resp 17 11/15/17 04:15 BP 160/69 11/15/17 08:00 Pulse Ox 94 L 11/15/17 08:00 Intake & Output 11/14/17 11/15/17 11/15/17 18:59 06:59 18:59 Intake Total 240 1080 240 Output Total 330 950 Balance -90 130 240 Weight 119 kg Intake: Intake, IV Titration 600 Amount Sodium Chloride 0.45% 1, 600 000 ml @ 75 mls/hr IV . [id number] [facility] Rx#:[id number] Oral 240 480 240 Output: Urine 330 950 Other: Voiding Method Indwelling Catheter Indwelling Catheter Indwelling Catheter - Constitutional General appearance: Present: average body habitus, cooperative, no acute distress - EENT Eyes: Present: anicteric sclerae - Respiratory Respiratory: bilateral: CTA - Cardiovascular Heart sounds: normal: S1, S2 - Gastrointestinal General gastrointestinal: Present: normal bowel sounds - Integumentary Integumentary: Present: pale - Neurologic Neurologic: Present: CNII-XII intact - Musculoskeletal Musculoskeletal: Present: generalized weakness - Psychiatric Psychiatric Comment(s): Forgets easily, is aware that he has multiple myeloma, needs reinforcement of disease process Psychiatric: Present: A&O x's 3, appropriate affect - Labs CBC & Chem 7: 11/15/17 06:16 11/15/17 06:16 Labs: Abnormal Lab Results - Last 24 Hours (Table) 11/15/17 11/15/17 Range/Units 06:16 06:16 WBC 3.5 L (3.8-10.6) k/uL RBC 2.53 L (4.30-5.90) m/uL Hgb 8.1 L (13.0-17.5) gm/dL Hct 25.2 L (39.0-53.0) % RDW 18.2 H (11.5-15.5) % Plt Count 89 L (150-450) k/uL Creatinine 1.46 H (0.66-1.25) mg/dL Microbiology - Last 24 Hours (Table) 11/09/17 05:15 Blood Culture - Final Blood No Growth after 144 hours 11/14/17 11:43 Urine Culture - Preliminary Urine,Clean Catch 11/11/17 22:30 Urine Culture - Final Urine,Catheterized Rosalind albicans Assessment and Plan (1) Multiple myeloma in relapse Narrative/Plan: Patient is status post bone marrow biopsy and aspirate with Dr. Cutler. We did discuss that he will need some kind of treatment for his myeloma we are just not actually certain at this point what is going to be the best treatment for him and his particular situation. Plan is to follow-up with Dr. Cutler in a couple of weeks and determine a plan of care. Patient is a resident of a extended care facility so, treatment will be limited to those that are affordable to the facility. Was discussed with case management. Follow-up appointment is in the chart. Current Visit: Yes Status: Acute Priority: High Code(s): C90.02 - MULTIPLE MYELOMA IN RELAPSE SNOMED Code(s): 596015052 (2) Pancytopenia Narrative/Plan: Stable. Secondary to myeloma. Recommend at least weekly CBC in the outpatient setting with conservative transfusions as needed. Transfuse to keep hemoglobin greater than 7.5. Current Visit: Yes Status: Acute Priority: High Code(s): D61.818 - OTHER PANCYTOPENIA SNOMED Code(s): 632701258 Plan: Defer management of current condition to Attending and Consulting Physicians Pt is ok from a Hem/Onc standpoint to be discharged once he is cleared by Attending and Consulting Physicians
[2017-11-15 12:42] VITALS: BP 100/55
--- NOTE | 2017-11-15 15:14 | PN ---
PROGRESS NOTE DATE OF SERVICE: 11/15/2017. REASON FOR FOLLOWUP VISIT: Catheter associated urinary tract infection. INTERVAL HISTORY: The patient is afebrile. He has been breathing comfortably. Denies any chest pain, cough. No abdominal pain. No diarrhea. EXAMINATION: Blood pressure is 160/69, pulse of 68, temperature 97.3. She is 94% on 3 L nasal cannula. General description is an elderly male lying in bed in no distress. Respiratory system: Unlabored breathing. Clear to auscultation anteriorly. Heart S1, S2. Regular rate and rhythm. Abdomen soft, no tenderness. LABS: Hemoglobin 8.1, white count 3.5, BUN of 20, creatinine 1.46. Repeat urine is showing Rosalind albicans. DIAGNOSTIC IMPRESSION AND PLAN: Patient with catheter associated urinary tract infection. Initial culture with ESBL E coli. Reid catheter has been changed, repeat is now showing Rosalind albicans. Invanz discontinued. We will give a short course of oral Diflucan for about 5 days to finish therapy. Continue supportive care. MMODL / IJN: [id number] /
--- NOTE | 2017-11-15 15:50 | P.DS ---
Providers Date of admission: 11/08/17 21:14 Attending physician: Mariam Buenrostro Consults: 11/08/17 22:41 Consult Physician Routine Consulting Provider: Kenia Saleh Consult Reason/Comments: elevated trops Do you want consulting provider notified?: Yes, Notify in am 11/08/17 22:42 Consult Physician Routine Consulting Provider: Deisi Hernandez Consult Reason/Comments: AKF Do you want consulting provider notified?: Yes, Notify in am 11/08/17 22:44 Consult Physician Routine Consulting Provider: Syd Mendez Consult Reason/Comments: Bone cancer Do you want consulting provider notified?: Yes, Notify in am 11/09/17 11:02 Consult Physician Routine Consulting Provider: Fany Rhoades Consult Reason/Comments: uti Do you want consulting provider notified?: Yes 11/10/17 10:05 Consult Physician Stat Consulting Provider: Priyanka/Jeanna Consult Reason/Comments: anemia Do you want consulting provider notified?: Yes 11/11/17 11:27 Consult Physician Stat Consulting Provider: Fany Rhoades Consult Reason/Comments: ESBL Urine Do you want consulting provider notified?: Yes Primary care physician: Stated None Hospital Course: Mr. Casanova is a 87-year-old male with a past medical history of multiple myeloma, atrial fibrillation, coronary artery disease, congestive heart failure , GERD, hypertension, prostate disorder coming into the hospital with a chief complaint of altered mental status changes. Later on patient was found to have urinary tract infection, acute on chronic kidney injury and pancytopenia. Patient has history of multiple myeloma that was in remission. But now that he has pancytopenia he had a bone marrow biopsy done the results of which are currently pending. His urine is positive for ESBL E. coli for which he is on Invan which was . His urine culture is positive also positive for Rosalind albicans. As the patient had low hemoglobin patient had EGD done on 11/12/2017 showing normal esophagus stomach and duodenum with no evidence of peptic ulcer disease or gastritis. Patient has evaluated by oncology- history of multiple myeloma, nephrology - acute kidney injury, infectious disease services- candiduria. Patient has been cleared by oncology services and nephrology services. Will be discharged on Diflucan candiduria DISCHARGE DIAGNOSIS 1. Acute UTI-with ESBL E. coli with sepsis secondary to chronic indwelling Reid catheter, present on admission- treated with Invanz - repeat urine cultures showed Rosalind albicans and so his Invanz has been discontinued and he was put on Diflucan. 2. Chest pain, with a possible NSTEMI with Troponin 0.566 3. Acute renal failure secondary to ATN 4. Chronic congestive heart failure, systolic dysfunction, EF 35-40% 5. History of multiple myeloma 6. CAD history of [place], CABG, stent 7. No code, no CPR, no intubation 8. Hypernatremia secondary to dehydration, diuretics, resolved 9. Acute on chronic Anemia, in a patient with history of bleeding duodenal ulcer disease, embolization at [facility], status post EGD; negative. Possibly related to multiple myeloma. 10 . Pancytopenia Patient needs BMP and CBC checked in 2-3 days. Follow-up with hematology for the results of his bone marrow biopsy. Patient will need his hemoglobin to be Above 7.5 as per hematology recommendations. We will need for weekly CBC checks. Patient Condition at Discharge: Fair Plan - Discharge Summary New Discharge Prescriptions: New Fluconazole [Diflucan] 100 mg PO DAILY #5 tab Gabapentin [Neurontin] 300 mg PO BID cap Continue Metoprolol Tartrate [Lopressor] 50 mg PO BID Nitroglycerin Sl Tabs [Nitrostat] 0.4 mg SUBLINGUAL Q5M PRN PRN Reason: Chest Pain Pantoprazole Sodium [Protonix] 40 mg PO DAILY Melatonin 2 mg PO HS Cetirizine HCl 10 mg PO DAILY Atorvastatin [Lipitor] 40 mg PO DAILY Magnesium Hydroxide [Milk of Magnesia] 2,400 mg PO DAILY PRN PRN Reason: Constipation Aspirin [Adult Low Dose Aspirin EC] 81 mg PO DAILY Isosorbide Mononitrate ER [Imdur] 60 mg PO BID Sodium Bicarbonate Tab 650 mg PO DAILY tab Sennosides-Docusate Sodium [Senokot-S] 1 tab PO DAILY HYDROcodone/APAP 5-325MG [[place] 5-325] 1 tab PO Q6HR PRN PRN Reason: Pain Gentamicin Sulfate [Gentamicin Sulfate 0.1%] 1 applic TOPICAL DAILY DULoxetine HCL [Cymbalta] 60 mg PO DAILY Bisacodyl 10 mg PO DAILY PRN PRN Reason: Constipation Discontinued Potassium Chloride [Klor-Con 10] 10 meq PO DAILY Furosemide [Lasix] 20 mg PO Q48H Ticagrelor [Brilinta] 60 mg PO BID Gabapentin [Neurontin] 600 mg PO BID Discharge Medication List Metoprolol Tartrate [Lopressor] 50 mg PO BID 12/01/13 [History] Nitroglycerin Sl Tabs [Nitrostat] 0.4 mg SUBLINGUAL Q5M PRN 07/13/14 [History] Aspirin [Adult Low Dose Aspirin EC] 81 mg PO DAILY 10/26/16 [History] Atorvastatin [Lipitor] 40 mg PO DAILY 10/26/16 [History] Cetirizine HCl 10 mg PO DAILY 10/26/16 [History] Isosorbide Mononitrate ER [Imdur] 60 mg PO BID 10/26/16 [History] Magnesium Hydroxide [Milk of Magnesia] 2,400 mg PO DAILY PRN 10/26/16 [History] Melatonin 2 mg PO HS 10/26/16 [History] Pantoprazole Sodium [Protonix] 40 mg PO DAILY 10/26/16 [History] Sodium Bicarbonate Tab 650 mg PO DAILY tab 10/29/16 [Rx] Bisacodyl 10 mg PO DAILY PRN 11/08/17 [History] DULoxetine HCL [Cymbalta] 60 mg PO DAILY 11/08/17 [History] Gentamicin Sulfate [Gentamicin Sulfate 0.1%] 1 applic TOPICAL DAILY 11/08/17 [ History] HYDROcodone/APAP 5-325MG [[place] 5-325] 1 tab PO Q6HR PRN 11/08/17 [History] Sennosides-Docusate Sodium [Senokot-S] 1 tab PO DAILY 11/08/17 [History] Fluconazole [Diflucan] 100 mg PO DAILY #5 tab 11/15/17 [Rx] Gabapentin [Neurontin] 300 mg PO BID cap 11/15/17 [Rx] Follow up Appointment(s)/Referral(s): Jimi Cutler MD [STAFF PHYSICIAN] - 12/01/17 3:15 pm Activity/Diet/Wound Care/Special Instructions: DNR at [facility] Oxygen 3L NC Antibiotic completed per ID, repeat urine culture - for ESBL Maintain suprapubic catheter as before Post right lower back biopsy site, pressure dressing may be removed with skin assessment upon admission Chopped level 3 diet, no straws Per Alesha Ricci [employer]: Transfuse to keep Hgb >7.5, at least weekly CBC to monitor Discharge Disposition: TRANSFER TO SNF/ECF
[2017-11-15 18:49] VITALS: PULSE 61
== END 2017-11-15 19:08 | DRG 280 ==
LOC: 6SEL 21:14
PROVIDERS: ADMIT Internal Medicine; ATTEND Internal Medicine
PROC: 30233N1 Transfusion of Nonautologous Red Blood Cells into Peripheral Vein, Percutaneous Approach (ICD-10-PCS; 2017-11-11)
PROC: 0DJ08ZZ Inspection of Upper Intestinal Tract, Via Natural or Artificial Opening Endoscopic (ICD-10-PCS; 2017-11-12)
PROC: 07DR3ZX Extraction of Iliac Bone Marrow, Percutaneous Approach, Diagnostic (ICD-10-PCS; principal; 2017-11-12 15:45)
DX: I21.4 Non-ST elevation (NSTEMI) myocardial infarction (principal); A41.51 Sepsis due to Escherichia coli [E. coli]; N17.0 Acute kidney failure with tubular necrosis; G93.41 Metabolic encephalopathy; T83.511A Infection and inflammatory reaction due to indwelling urethral catheter, initial encounter; D61.818 Other pancytopenia; C90.02 Multiple myeloma in relapse; B37.49 Other urogenital candidiasis; I13.0 Hypertensive heart and chronic kidney disease with heart failure and stage 1 through stage 4 chronic kidney disease, or unspecified chronic kidney disease; I50.22 Chronic systolic (congestive) heart failure; D62 Acute posthemorrhagic anemia; E87.0 Hyperosmolality and hypernatremia; E87.2 Acidosis; N39.0 Urinary tract infection, site not specified; I48.91 Unspecified atrial fibrillation; E86.0 Dehydration; J44.9 Chronic obstructive pulmonary disease, unspecified; R77.8 Other specified abnormalities of plasma proteins; N18.9 Chronic kidney disease, unspecified; K21.9 Gastro-esophageal reflux disease without esophagitis; I45.10 Unspecified right bundle-branch block; T50.2X5A Adverse effect of carbonic-anhydrase inhibitors, benzothiadiazides and other diuretics, initial encounter; R53.1 Weakness; Z96.643 Presence of artificial hip joint, bilateral; R33.9 Retention of urine, unspecified; Y84.6 Urinary catheterization as the cause of abnormal reaction of the patient, or of later complication, without mention of misadventure at the time of the procedure; E78.5 Hyperlipidemia, unspecified; E87.5 Hyperkalemia; I25.5 Ischemic cardiomyopathy; N28.89 Other specified disorders of kidney and ureter; N40.0 Benign prostatic hyperplasia without lower urinary tract symptoms; Z16.12 Extended spectrum beta lactamase (ESBL) resistance; I25.10 Atherosclerotic heart disease of native coronary artery without angina pectoris; Z85.46 Personal history of malignant neoplasm of prostate; Z90.49 Acquired absence of other specified parts of digestive tract; Z95.1 Presence of aortocoronary bypass graft; Z87.19 Personal history of other diseases of the digestive system; Z87.11 Personal history of peptic ulcer disease; I25.2 Old myocardial infarction; Z82.49 Family history of ischemic heart disease and other diseases of the circulatory system; Z88.0 Allergy status to penicillin; Z88.2 Allergy status to sulfonamides; Z88.1 Allergy status to other antibiotic agents; Z91.040 Latex allergy status; Z79.899 Other long term (current) drug therapy; Z79.82 Long term (current) use of aspirin; Z79.891 Long term (current) use of opiate analgesic; Z86.73 Personal history of transient ischemic attack (TIA), and cerebral infarction without residual deficits; Z86.69 Personal history of other diseases of the nervous system and sense organs; Z87.440 Personal history of urinary (tract) infections; Z90.89 Acquired absence of other organs; Z98.41 Cataract extraction status, right eye; Z98.42 Cataract extraction status, left eye
CPT/HCPCS: 43235; 71045; 76770; 80048; 80053; 81001; 82728; 82784; 83540; 83550; 83735; 83883; 84165; 84484; 85025; 86334; 86850; 86900; 86901; 86920; 87040; 87077; 87086; 87186; 93306; 94760